=== PATIENT | female | born 1970 | race Caucasian/White ===

== ENCOUNTER 2017-08-15 12:28 | Emergency (ER) | payer OTHER ==
[2017-08-15 12:33] VITALS: BMI 31.8
--- NOTE | 2017-08-15 13:01 | PDOC ---
History of Present Illness - General History Source: Patient Exam Limitations: No Limitations - History of Present Illness Initial Comments: 08/15/17 14:02 The patient is a 46-year-old female with a significant past medical history of HLD, prediabetes, controlled abdominal aortic aneurysm, nephrolithiasis, left ovarian cyst, and prior kidney infection, who presents to the emergency department with abdominal pain, nausea, and diarrhea since 1pm yesterday. She describes her abdominal pain as a constant sharp, pressure-like pain, located in the mid-epigastric region, and 7/10 in severity. She states she has had multiple episodes of watery diarrhea. She reports associated body aches, chills , tiredness, and moderate headache (took Tylenol at 3pm yesterday). She state she states she has not vomited, but has felt like vomiting. She reports defecation makes the pain better and eating makes the pain worse. She has not eaten since yesterday. 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 She denies recent travel. She states she got her flu shot. The patient denies chest pain, shortness of breath, and dizziness. The patient denies fever, vomit, and constipation. The patient denies dysuria, frequency, urgency and hematuria. LMP: started 2 days ago Allergies: some antibiotic (patient is unable to recall the specific antibiotic ) Past Surgical History: , appendectomy, tonsillectomy Social History: No toxic habits reported PCP: Dr. Adrianna Beavers <Lela Cortes - Last Filed: 08/15/17 14:02> <Elaine Hardin - Last Filed: 08/15/17 16:15> - General Chief Complaint: Diarrhea Stated Complaint: ABD PAIN Time Seen by Provider: 08/15/17 13:01 Past History <Lela Cortes - Last Filed: 08/15/17 14:02> - Past Medical History Cardiac Disorders: Yes (ABDOMINAL ANEURYSM.) COPD: No Diabetes: Yes (pre) Hypercholesterolemia: Yes - Surgical History Abdominal Surgery: Yes Appendectomy: Yes - Immunization History Immunization Up to Date: Yes - Suicide/Smoking/Psychosocial Hx Smoking Status: No Smoking History: Never smoked Have you smoked in the past 12 months: No Hx Alcohol Use: No Drug/Substance Use Hx: No Substance Use Type: None Hx Substance Use Treatment: No <Elaine Hardin - Last Filed: 08/15/17 16:15> - Past Medical History Allergies/Adverse Reactions: Allergies Allergy/AdvReac Type Severity Reaction Status Date / Time No Known Drug Allergies Allergy Verified 08/15/17 12:32 Home Medications: Ambulatory Orders NK [No Known Home Medication] 03/10/16 Review of Systems - Review of Systems Able to Perform ROS?: Yes Comments:: 08/15/17 14:02 GENERAL/CONSTITUTIONAL: (+) Chills. No fever. No weakness. HEAD, EYES, EARS, NOSE AND THROAT: No change in vision. No ear pain or discharge. No sore throat. CARDIOVASCULAR: No chest pain or shortness of breath. RESPIRATORY: No cough, wheezing, or hemoptysis. GASTROINTESTINAL: (+) Abdominal pain. (+) Nausea. (+) Diarrhea. No vomiting or constipation. GENITOURINARY: No dysuria, frequency, or change in urination. MUSCULOSKELETAL: No joint or muscle swelling or pain. No neck or back pain. SKIN: No rash NEUROLOGIC: (+) Headache. No vertigo, loss of consciousness, or change in strength/sensation. ENDOCRINE: No increased thirst. No abnormal weight change. HEMATOLOGIC/LYMPHATIC: No anemia, easy bleeding, or history of blood clots. ALLERGIC/IMMUNOLOGIC: No hives or skin allergy. <SebastianLela - Last Filed: 08/15/17 14:02> *Physical Exam - Vital Signs Last Vital Signs Temp Pulse Resp BP Pulse Ox 99.6 F 104 H 20 121/73 99 08/15/17 12:30 08/15/17 12:30 08/15/17 12:30 08/15/17 12:30 08/15/17 12:30 - Physical Exam Comments: 08/15/17 14:03 GENERAL: Awake, alert, and fully oriented, in no acute distress. (+) Febrile. HEAD: No signs of trauma EYES: PERRLA, EOMI, sclera anicteric, conjunctiva clear ENT: Auricles normal inspection, hearing grossly normal, nares patent, oropharynx clear without exudates. Moist mucosa NECK: Normal ROM, supple, no lymphadenopathy, JVD, or masses LUNGS: Breath sounds equal, clear to auscultation bilaterally. No wheezes, and no crackles HEART: Regular rate and rhythm, normal S1 and S2, no murmurs, rubs or gallops ABDOMEN: (+) Very mild diffuse tenderness to deep palpation in the epigastrium. Soft, normoactive bowel sounds. No guarding, no rebound. No masses EXTREMITIES: Normal range of motion, no edema. No clubbing or cyanosis. No cords, erythema, or tenderness NEUROLOGICAL: Cranial nerves II through XII grossly intact. Normal speech, normal gait SKIN: Warm, Dry, normal turgor, no rashes or lesions noted. <Lela Cortes - Last Filed: 08/15/17 14:02> - Vital Signs Last Vital Signs Temp Pulse Resp BP Pulse Ox 99.6 F 104 H 20 121/73 99 08/15/17 12:30 08/15/17 12:30 08/15/17 12:30 08/15/17 12:30 08/15/17 12:30 <Elaine Hardin - Last Filed: 08/15/17 16:15> ED Treatment Course - LABORATORY CBC & Chemistry Diagram: 08/15/17 13:55 08/15/17 13:55 - ADDITIONAL ORDERS Additional order review: 08/15/17 13:55 RBC 4.89 MCV 82.8 MCHC 33.2 RDW 14.7 MPV 8.2 Neutrophils % 80.2 D Lymphocytes % 11.4 D Monocytes % 7.5 Eosinophils % 0.7 Basophils % 0.2 <Lela Cortes - Last Filed: 08/15/17 14:02> - LABORATORY CBC & Chemistry Diagram: 08/15/17 13:55 08/15/17 13:55 <Elaine Hardin - Last Filed: 08/15/17 16:15> *DC/Admit/Observation/Transfer - Attestations Scribe Attestion: 08/15/17 14:03 Documentation prepared by Lela Cortes, acting as emergency medical technician/driver for Elaine Hardin MD, /DO. <Lela Cortes - Last Filed: 08/15/17 14:02> - Discharge Dispostion Admit: No <Elaine Hardin - Last Filed: 08/15/17 16:15> Diagnosis at time of Disposition: Gastroenteritis - Discharge Dispostion Disposition: HOME Condition at time of disposition: Good - Referrals Referrals: Adrianna Beavers MD [Primary Care Provider] - - Patient Instructions Printed Discharge Instructions: DI for Viral Gastroenteritis -- Adult Additional Instructions: Pt presents to the ED complaining of generalized malaise and profuse watery diarrhea. Minimal abdominal pain. History is consistent with viral gastroenteritis. Will discharge home with instructions to follow up with her PMD within three days. - Post Discharge Activity Forms/Work/School Notes: Back to Work
[2017-08-15] MEDS ORDERED: SODIUM CHLORIDE 1,000 ML IV STA (13:52)
[2017-08-15 13:59] LABS: BASO % 0.2 % (0-2.0); EOS % 0.7 % (0-4.5); HEMATOCRIT 40.5 % (32.4-45.2); HEMOGLOBIN 13.4 GM/dL (10.7-15.3); LYMPH % 11.4 % (8-40); MCH 27.5 pg (25.7-33.7); MCHC 33.2 g/dl (32.0-36.0); MEAN CELL VOLUME 82.8 fl (80-96); MEAN PLT VOLUME 8.2 fl (7.5-11.1); MONO % 7.5 % (3.8-10.2); NEUT % 80.2 % (42.8-82.8); PLATELET COUNT 313 K/MM3 (134-434); RBC 4.89 M/mm3 (3.60-5.2); RDW 14.7 % (11.6-15.6); WHITE BLOOD COUNT 8.4 K/mm3 (4.0-10.0)
[2017-08-15 14:23] LABS: ALBUMIN 3.4 g/dl (3.4-5.0); ALK PHOS 82 U/L (45-117); ANION GAP 7 (8-16); BILIRUBIN,TOTAL 0.5 mg/dL (0.2-1.0); BLOOD UREA NITROGEN 10 mg/dL (7-18); CHLORIDE 105 mmol/L (98-107); CO2 27 mmol/L (21-32); CREATININE 0.6 mg/dL (0.55-1.02); GLUCOSE,RANDOM 93 mg/dL (74-106); LIPASE 101 U/L (73-393); POTASSIUM 3.9 mmol/L (3.5-5.1); SGOT/AST 18 U/L (15-37); SGPT/ALT 37 U/L (12-78); SODIUM 139 mmol/L (136-145)
[2017-08-15] MEDS ORDERED: ACETAMINOPHEN 500 MG TABLET (FP) PO ONE (15:03)
[2017-08-15] MEDS ORDERED: OSELTAMIVIR PHOSPHATE 75 MG CAPSULE PO ONE (15:03)
[2017-08-15] MEDS ORDERED: ONDANSETRON 4 MG/2 ML VIAL IVPUSH ONE (15:05)
[2017-08-15] MEDS ORDERED: ONDANSETRON 4 MG/2 ML VIAL ONE (15:07)
[2017-08-15 15:12] LABS: HCG,QUALITATIVE URINE NEGATIVE; URINE APPEARANCE CLEAR; URINE BILIRUBIN NEGATIVE (NEGATIVE); URINE BLOOD 3+ (NEGATIVE); URINE COLOR COLORLESS; URINE GLUCOSE (UA) NEGATIVE (NEGATIVE); URINE KETONE NEGATIVE (NEGATIVE); URINE LEUK ESTERASE NEGATIVE (NEGATIVE); URINE NITRITE NEGATIVE (NEGATIVE); URINE PROTEIN NEGATIVE (NEGATIVE); URINE UROBILINOGEN NEGATIVE mg/dL (0.2-1.0)
[2017-08-15 15:15] LABS: EPI CELLS RARE /HPF (FEW); URINE BACTERIA RARE /hpf (NONE SEEN)
[2017-08-15] MEDS ORDERED: ACETAMINOPHEN 500 MG TABLET (FP) ONE (15:29)
[2017-08-15 16:04] VITALS: TEMP 99.4
[2017-08-15 16:44] VITALS: BP 107/68; PULSE 83
--- NOTE | 2017-08-18 11:03 | EKG ---
Test Reason : Blood Pressure : / mmHG Vent. Rate : 077 BPM Atrial Rate : 077 BPM P-R Int : 178 ms QRS Dur : 082 ms QT Int : 392 ms P-R-T Axes : 044 024 034 degrees QTc Int : 443 ms NORMAL SINUS RHYTHM NORMAL ECG WHEN COMPARED WITH ECG OF 09-JUL-2015 14:58, NO SIGNIFICANT CHANGE WAS FOUND Confirmed by DEVANTE ARRINGTON MD ([id number]) on 08/18/2017 11:03:31 AM Referred By: Confirmed By:DEVANTE ARRINGTON MD
== END 2017-08-15 16:43 | disposition home or self-care (01) ==
LOC: JER 12:28
PROC: 3E033GC Introduction of Other Therapeutic Substance into Peripheral Vein, Percutaneous Approach (ICD-10-PCS; principal; 2017-08-15)
PROC: 3E0337Z Introduction of Electrolytic and Water Balance Substance into Peripheral Vein, Percutaneous Approach (ICD-10-PCS; 2017-08-15)
DX: K52.9 Noninfective gastroenteritis and colitis, unspecified (principal); E78.00 Pure hypercholesterolemia, unspecified; R73.03 Prediabetes; Z86.79 Personal history of other diseases of the circulatory system
CPT/HCPCS: 36415; 80053; 81003; 81015; 83690; 84703; 85025; 93005; 93010; 96361; 96374; 99283-25

== ENCOUNTER 2017-11-18 21:54 | Emergency (ER) | payer OTHER ==
[2017-11-18] MEDS ORDERED: ACETAMINOPHEN 500 MG TABLET (FP) PO ONE (22:01)
--- NOTE | 2017-11-18 22:01 | PDOC ---
Rapid Medical Evaluation Time Seen by Provider: 11/18/17 21:55 Medical Evaluation: Allergies Allergy/AdvReac Type Severity Reaction Status Date / Time No Known Drug Allergies Allergy Verified 08/15/17 12:32 11/18/17 21:57 I have performed a brief in-person evaluation of this patient. The patient presents with a chief complaint of: fevers, sneezing, occipital LA[place]ON radiating to front Pertinent physical exam findings: EOMI. PERRLA. Lungs CTAB. OP- no erythema/ exudate. I have ordered the following: rapid strep, influenza, tylenol The patient will proceed to the ED for further evaluation. Discharge Disposition - Diagnosis Fever - Referrals - Patient Instructions - Post Discharge Activity
[2017-11-18] MEDS ORDERED: ACETAMINOPHEN 325 MG TABLET (FP) ONE (22:03)
[2017-11-18 22:04] VITALS: BMI 26.6
--- NOTE | 2017-11-18 22:49 | PDOC ---
History of Present Illness - General Chief Complaint: Cold Symptoms Stated Complaint: COLD SYMPTOMS Time Seen by Provider: 11/18/17 21:55 History Source: Patient Exam Limitations: No Limitations - History of Present Illness Initial Comments: 11/18/17 23:07 This is a 47-year-old woman with past medical history of hyperlipidemia and prediabetes who presents emergency Department sore throat, headache, fevers, cough for the past 4 days. Patient states she has not been taking any over-the- counter remedies to help improve her symptoms. She denies any travel out of the country or sick contacts. She denies abdominal pain, nausea, vomiting, dysuria, hematuria, diarrhea or rectal bleeding. Past History - Past Medical History Allergies/Adverse Reactions: Allergies Allergy/AdvReac Type Severity Reaction Status Date / Time No Known Drug Allergies Allergy Verified 11/18/17 22:03 Home Medications: Ambulatory Orders Loperamide HCl [Imodium A-D] 2 mg PO ASDIR #12 tablet MDD 16 mg 08/15/17 Cardiac Disorders: Yes (ABDOMINAL ANEURYSM.) COPD: No Diabetes: Yes (pre) Hypercholesterolemia: Yes - Surgical History Abdominal Surgery: Yes Appendectomy: Yes - Immunization History Immunization Up to Date: Yes - Suicide/Smoking/Psychosocial Hx Smoking Status: No Smoking History: Never smoked Have you smoked in the past 12 months: No Information on smoking cessation initiated: No Hx Alcohol Use: No Drug/Substance Use Hx: No Substance Use Type: None Hx Substance Use Treatment: No Review of Systems - Review of Systems Able to Perform ROS?: Yes Is the patient limited Kinyarwanda proficient: No Constitutional: Yes: See HPI HEENTM: Yes: See HPI Respiratory: Yes: See HPI Cardiac (ROS): No: Symptoms Reported ABD/GI: No: Symptoms Reported : No: Symptoms Reported Musculoskeletal: No: Symptoms Reported Integumentary: No: Symptoms Reported Neurological: Yes: See HPI Endocrine: Yes: Symptoms Reported *Physical Exam - Vital Signs Last Vital Signs Temp Pulse Resp BP Pulse Ox 101.8 F H 104 H 20 131/65 95 11/18/17 22:03 11/18/17 22:03 11/18/17 22:03 11/18/17 22:03 11/18/17 22:03 - Physical Exam General Appearance: Yes: Appropriately Dressed. No: Apparent Distress HEENT: positive: TMs Normal, Other (uvula midline). negative: Pharyngeal Erythema, Tonsillar Exudate, Tonsillar Erythema Neck: positive: Trachea midline, Supple Respiratory/Chest: positive: Lungs Clear, Normal Breath Sounds. negative: Respiratory Distress, Accessory Muscle Use Cardiovascular: positive: Regular Rhythm, Regular Rate. negative: Murmur Gastrointestinal/Abdominal: positive: Normal Bowel Sounds, Soft. negative: Tender Musculoskeletal: positive: Normal Inspection. negative: CVA Tenderness Extremity: positive: Normal Inspection Integumentary: positive: Normal Color, Dry, Warm Neurologic: positive: underwear welter II-XII NML intact, Fully Oriented, Alert, Normal Mood/ Affect, Normal Response, Motor Strength 11/06 ED Treatment Course - Medications Given in the ED: ED Medications Discontinued Medications Generic Name Dose Route Start Last Admin Trade Name Freq PRN Reason Stop Dose Admin Acetaminophen 975 mg 11/18/17 22:01 11/18/17 22:05 Tylenol - PO 11/18/17 22:02 975 mg ONCE ONE Administration Medical Decision Making - Medical Decision Making 11/18/17 23:08 A/P: 47-year-old female with history of hyperlipidemia presents with 4 days of upper respiratory symptoms Oropharynx clear without erythema or exudates. Uvula midline Cobblestoning noted in the posterior oropharynx Lungs clear to auscultation bilaterally Regular tachycardic rhythm. No murmur, rub or gallop noted Abdomen soft nontender nondistended Tylenol, strep testing, influenza testing, reassess 11/19/17 00:33 Influenza test and strep testing are negative. Patient currently states she feels better and is ready for discharge. I will perform a chest x-ray to rule out pneumonia. 11/19/17 01:48 Chest x-rays read by me: Angles clear. No focal infiltrates or consolidations noted. Cardex silhouette is within normal limits. Visualized osseous structures are intact. 11/19/17 02:08 Vital signs normalized. Patient feels better. I will discharge the patient home to follow-up her primary doctor within 1 week. *DC/Admit/Observation/Transfer Diagnosis at time of Disposition: Fever Qualifiers: Fever type: unspecified Qualified Code(s): R50.9 - Fever, unspecified Upper respiratory infection Qualifiers: URI type: unspecified URI Qualified Code(s): J06.9 - Acute upper respiratory infection, unspecified - Discharge Dispostion Disposition: HOME Condition at time of disposition: Fair Decision to Admit order: No - Referrals Referrals: Adrianna Beavers MD [Primary Care Provider] - - Patient Instructions Printed Discharge Instructions: DI for Viral Upper Respiratory Infection -- Adult Additional Instructions: Rest, drink lots of fluids: Teas, water, soups, Pedialyte Saltwater gargles Steamy showers/seem to face break up mucus Avoid contact with others until fevers and cough resolved Lots of handwashing and good hygiene Continue [id number] medications for symptomatic relief Tylenol or Motrin for fever and pain Followup with private physician in one to 2 days as needed Return to emergency department for worsened symptoms, fevers, dehydration - Post Discharge Activity Forms/Work/School Notes: Back to Work
--- NOTE | 2017-11-18 23:37 | PDOC ---
*Physical Exam - Vital Signs Last Vital Signs Temp Pulse Resp BP Pulse Ox 101.8 F H 104 H 20 131/65 95 11/18/17 22:03 11/18/17 22:03 11/18/17 22:03 11/18/17 22:03 11/18/17 22:03 ED Treatment Course - ADDITIONAL ORDERS Additional order review: 11/18/17 22:01 Influenza Types A,B Antigen (SÁNCHEZ) - Final Nasopharyngeal Swab - Final 11/18/17 22:01 Group A Strep Rapid Antigen - Final Throat - Medications Given in the ED: ED Medications Discontinued Medications Generic Name Dose Route Start Last Admin Trade Name Freq PRN Reason Stop Dose Admin Acetaminophen 975 mg 11/18/17 22:01 11/18/17 22:05 Tylenol - PO 11/18/17 22:02 975 mg ONCE ONE Administration Medical Decision Making - Medical Decision Making 11/18/17 23:37 agree with care from BRENDA Moss *DC/Admit/Observation/Transfer Diagnosis at time of Disposition: Fever - Referrals Referrals: Adrianna Beavers MD [Primary Care Provider] - - Patient Instructions - Post Discharge Activity
[2017-11-19 01:55] VITALS: BP 134/69; PULSE 89; TEMP 97.6
== END 2017-11-19 02:11 | disposition home or self-care (01) ==
LOC: JER 21:54
DX: J06.9 Acute upper respiratory infection, unspecified (principal); B97.89 Other viral agents as the cause of diseases classified elsewhere; R73.03 Prediabetes; E78.00 Pure hypercholesterolemia, unspecified; Z86.79 Personal history of other diseases of the circulatory system
CPT/HCPCS: 71046-TC-FY; 87070; 87430; 87804; 99282-25

== ENCOUNTER 2017-11-20 13:27 | Emergency (ER) | payer OTHER ==
[2017-11-20 13:31] VITALS: BP 143/75; PULSE 84; TEMP 101; BMI 28.6
[2017-11-20] MEDS ORDERED: IBUPROFEN 400 MG TABLET (FP) PO ONE ×2 (13:40→13:42)
--- NOTE | 2017-11-20 14:00 | PDOC ---
History of Present Illness - General Chief Complaint: Respiratory Stated Complaint: FEVER Time Seen by Provider: 11/20/17 13:39 History Source: Patient - History of Present Illness Timing/Duration: reports: other Associated Symptoms: reports: cough, fever/chills. denies: chest pain/soreness , dizziness, earache, facial pain, headache, muscle aches, nasal drainage, shortness of breath, sore throat, wheezing Past History - Past Medical History Allergies/Adverse Reactions: Allergies Allergy/AdvReac Type Severity Reaction Status Date / Time No Known Drug Allergies Allergy Verified 11/20/17 13:30 Home Medications: Ambulatory Orders NK [No Known Home Medication] 11/20/17 Cardiac Disorders: Yes (ABDOMINAL ANEURYSM.) COPD: No Diabetes: Yes (pre) Hypercholesterolemia: Yes - Surgical History Abdominal Surgery: Yes Appendectomy: Yes - Immunization History Immunization Up to Date: Yes - Suicide/Smoking/Psychosocial Hx Smoking Status: No Smoking History: Never smoked Have you smoked in the past 12 months: No Hx Alcohol Use: No Drug/Substance Use Hx: No Substance Use Type: None Hx Substance Use Treatment: No Review of Systems - Review of Systems Constitutional: Yes: Fever Respiratory: Yes: Cough. No: Shortness of Breath, Wheezing Cardiac (ROS): No: Chest Pain ABD/GI: No: Diarrhea, Nausea, Vomiting : No: Dysuria Neurological: No: Headache, Dizziness *Physical Exam - Vital Signs Last Vital Signs Temp Pulse Resp BP Pulse Ox 101 F H 84 18 143/75 97 11/20/17 13:28 11/20/17 13:28 11/20/17 13:28 11/20/17 13:28 11/20/17 13:28 - Physical Exam General Appearance: Yes: Appropriately Dressed. No: Apparent Distress HEENT: positive: Normal Voice Neck: positive: Supple. negative: Lymphadenopathy (R), Lymphadenopathy (L) Respiratory/Chest: positive: Lungs Clear, Normal Breath Sounds. negative: Respiratory Distress Cardiovascular: positive: Regular Rate, S1, S2 Gastrointestinal/Abdominal: positive: Soft. negative: Tender Integumentary: positive: Warm. negative: Dry Neurologic: positive: Fully Oriented, Alert, Normal Mood/Affect ED Treatment Course - Medications Given in the ED: ED Medications Discontinued Medications Generic Name Dose Route Start Last Admin Trade Name Freq PRN Reason Stop Dose Admin Ibuprofen 800 mg 11/20/17 13:40 11/20/17 13:56 Motrin - PO 11/20/17 13:41 800 mg ONCE ONE Administration Medical Decision Making - Medical Decision Making 11/20/17 14:00 47-year-old female, history of HLD, pre-DM, here for malaise with dry cough and fever for the past 6 days. Patient was seen in the ER 2 days ago for symptoms, had negative chest x-ray and discharged with supportive treatment for most likely viral illness. Patient returns today because she continues to have low- grade fevers at home. Patient denies sob, CP, headache, neck stiffness, dizziness, photophobia, nausea, vomiting, change in bowel movements or dysuria. No sick contacts or recent travel. Patient appears mildly uncomfortable in ED with low-grade fever. Rest of exam unremarkable. Viral etiology suspected. Patient informed that viral illness can take several days to a week or so to resolve and that treatment is supportive and that at this time there is no other intervention. Patient to follow-up with PMD next week if symptoms persist 11/20/17 14:04 *DC/Admit/Observation/Transfer Diagnosis at time of Disposition: Viral syndrome - Discharge Dispostion Disposition: HOME Condition at time of disposition: Good - Referrals Referrals: Adrianna Beavers MD [Primary Care Provider] - - Patient Instructions Printed Discharge Instructions: DI for Viral Syndrome Additional Instructions: The cause of your symptoms is most likely viral. The symptoms can take several days to week or so to resolve. In the meantime, rest, drink plenty of fluids and take Motrin or Tylenol for pain as needed. If symptoms persist, follow-up with your PMD next week - Post Discharge Activity Forms/Work/School Notes: Back to Work
== END 2017-11-20 14:07 | disposition home or self-care (01) ==
LOC: JERFT 13:27
DX: B34.9 Viral infection, unspecified (principal); I10 Essential (primary) hypertension; R73.03 Prediabetes
CPT/HCPCS: 99281-25

== ENCOUNTER 2018-09-13 10:57 | Emergency (ER) | payer OTHER ==
[2018-09-13 11:39] VITALS: BP 144/92; PULSE 76; TEMP 98.3; BMI 31.6
--- NOTE | 2018-09-13 11:54 | PDOC ---
History of Present Illness - General Chief Complaint: Back Pain Stated Complaint: BACK PAIN Time Seen by Provider: 09/13/18 11:40 History Source: Patient - History of Present Illness Severity: severe Past History - Past Medical History Allergies/Adverse Reactions: Allergies Allergy/AdvReac Type Severity Reaction Status Date / Time No Known Drug Allergies Allergy Verified 11/20/17 13:30 Home Medications: Ambulatory Orders Cyclobenzaprine HCl [Flexeril 10 mg] 10 mg PO TID #9 tablet 09/13/18 Ibuprofen [Motrin -] 800 mg PO Q6H #30 tablet 09/13/18 Cardiac Disorders: Yes (ABDOMINAL ANEURYSM.) COPD: No Diabetes: Yes (pre) Hypercholesterolemia: Yes - Surgical History Abdominal Surgery: Yes Appendectomy: Yes - Immunization History Immunization Up to Date: Yes - Suicide/Smoking/Psychosocial Hx Smoking Status: No Smoking History: Never smoked Have you smoked in the past 12 months: No Hx Alcohol Use: No Drug/Substance Use Hx: No Substance Use Type: None Hx Substance Use Treatment: No Review of Systems - Review of Systems Constitutional: No: Chills, Fever Respiratory: No: Shortness of Breath Cardiac (ROS): No: Chest Pain, Lightheadedness, Palpitations ABD/GI: Yes: Nausea. No: Blood Streaked Bowels, Constipated, Diarrhea, Rectal Bleeding, Vomiting *Physical Exam - Vital Signs Last Vital Signs Temp Pulse Resp BP Pulse Ox 98.3 F 76 16 144/92 99 09/13/18 11:33 09/13/18 11:33 09/13/18 11:33 09/13/18 11:33 09/13/18 11:33 Moderate Sedation - Procedure Monitoring Vital Signs: Procedure Monitoring Vital Signs Temperature 98.3 F 09/13/18 11:33 Pulse Rate 76 09/13/18 11:33 Respiratory Rate 16 09/13/18 11:33 Blood Pressure 144/92 09/13/18 11:33 O2 Sat by Pulse Oximetry (%) 99 09/13/18 11:33 ED Treatment Course - LABORATORY CBC & Chemistry Diagram: 09/13/18 12:21 09/13/18 12:21 Medical Decision Making - Medical Decision Making 09/13/18 11:50 48-year-old male female, history of fibroids, ? AAA (states she was told she had AAA in the past but states imaging last year showed no aneurysm), chronic lower back pain, reports "pinched nerve" on prior MRI, s/p PT ~2 years ago, recurrent UTIs, pyelo, renal stones, here with severe diffuse back pain that started several days ago radiating to L flank with nausea, no vomiting. Patient states several weeks ago she developed dysuria w/ foul odor to urine and "treated" it w/ OTC meds that she states was not abx. States she continues to have burning with urination but for unclear reasons, did not come to the ED or go see her doctor sooner. No recent trauma See exam Back pain w/ dysuria R/o uti/pyelo vs renal colic vs acute on chronic back pain, less likely dissection given gradual onset (reports ? h/o AAA in the past but no evidence on imaging last year per pt) Stable but leah very uncomfortable w/ b/l CVA, abd benign otherwise -pain control -zofran -IVF -labs -CT 09/13/18 15:14 Labs/CT unremarkable. Patient reports marked improvement in her symptoms and appears well on reassessment. Will dc with pain control and have patient follow -up with her PMD 09/13/18 15:15 *DC/Admit/Observation/Transfer Diagnosis at time of Disposition: Back pain Qualifiers: Back pain location: back pain in unspecified location Chronicity: unspecified Back pain laterality: bilateral Qualified Code(s): M54.9 - Dorsalgia, unspecified - Discharge Dispostion Disposition: HOME Condition at time of disposition: Improved - Prescriptions Prescriptions: Cyclobenzaprine HCl [Flexeril 10 mg] 10 mg PO TID #9 tablet Ibuprofen [Motrin -] 800 mg PO Q6H #30 tablet - Referrals Referrals: Adrianna Beavers MD [Primary Care Provider] - - Patient Instructions Printed Discharge Instructions: Low Back Pain Additional Instructions: The cause of your back pain might be due to your chronic back issues. Your labs, urine and CAT scan were normal here. Take naproxen and the Flexeril prescribed today and follow-up with your primary care physician - Post Discharge Activity Forms/Work/School Notes: Back to Work
[2018-09-13] MEDS ORDERED: KETOROLAC TROMETHAMINE 30 MG/1 ML VIAL IVPUSH ONE (11:55)
[2018-09-13] MEDS ORDERED: ONDANSETRON 4 MG/2 ML VIAL IVPUSH ONE (11:55)
[2018-09-13] MEDS ORDERED: SODIUM CHLORIDE 1,000 ML IV STA (11:56)
[2018-09-13] MEDS ORDERED: KETOROLAC TROMETHAMINE 30 MG/1 ML VIAL ONE (12:14)
[2018-09-13] MEDS ORDERED: ONDANSETRON 4 MG/2 ML VIAL ONE (12:14)
[2018-09-13 12:53] LABS: BASO % 0.4 % (0-2.0); EOS % 0.8 % (0-4.5); HEMATOCRIT 38.7 % (32.4-45.2); HEMOGLOBIN 13.2 GM/dL (10.7-15.3); LYMPH % 31.9 % (8-40); MCH 29.5 pg (25.7-33.7); MCHC 34.2 g/dl (32.0-36.0); MEAN CELL VOLUME 86.2 fl (80-96); MEAN PLT VOLUME 9.5 fl (7.5-11.1); MONO % 8.5 % (3.8-10.2); NEUT % 58.4 % (42.8-82.8); PLATELET COUNT 237 K/MM3 (134-434); RBC 4.49 M/mm3 (3.60-5.2); RDW 14.4 % (11.6-15.6)
[2018-09-13 13:27] LABS: URINE APPEARANCE CLEAR; URINE BILIRUBIN NEGATIVE (<2.0 mg/dL); URINE COLOR STRAW; URINE GLUCOSE (UA) NEGATIVE (NEGATIVE); URINE KETONE NEGATIVE (NEGATIVE); URINE LEUK ESTERASE NEGATIVE (NEGATIVE); URINE NITRITE NEGATIVE (NEGATIVE); URINE PROTEIN NEGATIVE (NEGATIVE); URINE UROBILINOGEN NEGATIVE mg/dL (0.2-1.0)
[2018-09-13 14:16] LABS: ALBUMIN 3.8 g/dl (3.4-5.0); ALK PHOS 76 U/L (45-117); ANION GAP 7 MMOL/L (8-16); BILIRUBIN,TOTAL 0.4 mg/dL (0.2-1); BLOOD UREA NITROGEN 16 mg/dL (7-18); CALCIUM 9.1 mg/dL (8.5-10.1); CHLORIDE 108 mmol/L (98-107); CO2 22 mmol/L (21-32); CREATININE 0.7 mg/dL (0.55-1.3); GLUCOSE,RANDOM 85 mg/dL (74-106); POTASSIUM 4.3 mmol/L (3.5-5.1); SGOT/AST 26 U/L (15-37); SGPT/ALT 37 U/L (13-61); SODIUM 137 mmol/L (136-145); TOT PROT 7.4 g/dl (6.4-8.2)
== END 2018-09-13 14:57 | disposition home or self-care (01) ==
LOC: JER 10:57
PROC: 3E0333Z Introduction of Anti-inflammatory into Peripheral Vein, Percutaneous Approach (ICD-10-PCS; principal; 2018-09-13)
PROC: 3E033GC Introduction of Other Therapeutic Substance into Peripheral Vein, Percutaneous Approach (ICD-10-PCS; 2018-09-13)
DX: M54.9 Dorsalgia, unspecified (principal); E78.00 Pure hypercholesterolemia, unspecified; R73.03 Prediabetes; Z86.79 Personal history of other diseases of the circulatory system; Z87.440 Personal history of urinary (tract) infections; Z86.2 Personal history of diseases of the blood and blood-forming organs and certain disorders involving the immune mechanism
CPT/HCPCS: 36415; 74176-TC; 80053; 81003; 83690; 85025; 87086; 96374; 96375; 99282-25; J7030

== ENCOUNTER 2019-01-10 06:04 | Inpatient (IN) | payer OTHER ==
[2019-01-09 10:52] VITALS: BMI 31.8
[~2019-01-10 06:04] MED LIST: CEFAZOLIN 2 GM in DEXTROSE 5%-WATER - 100 ML IVPB ONE
[2019-01-10] MEDS ORDERED: DEXMEDETOMIDINE HCL 200 MCG/2 ML IVPB ONE (07:02)
[2019-01-10] MEDS ORDERED: DESFLURANE GAS 240 ML BOTTLE IH ONE (07:02)
[2019-01-10] MEDS ORDERED: IBUPROFEN 800 MG/8 ML IJ IVPB ONE (07:02)
[2019-01-10] MEDS ORDERED: DEXAMETHASONE SOD PHOSPHATE/PF 10 MG/ML SDV ONE (07:14)
[2019-01-10] MEDS ORDERED: ROPIVACAINE HCL 0.5% 30ML VIAL ONE (07:14)
[2019-01-10] MEDS ORDERED: MIDAZOLAM HCL 2 MG/2 ML SINGLE DOSE VIAL ONE ×2 (07:15)
[2019-01-10] MEDS ORDERED: ROCURONIUM BROMIDE 50 MG/5 ML SYRINGE ONE (07:17)
[2019-01-10] MEDS ORDERED: SUCCINYLCHOLINE CHLORIDE 200 MG/10 ML SYRINGE ONE (07:17)
[2019-01-10] MEDS ORDERED: PROPOFOL 20 ML ONE (07:17)
[2019-01-10] MEDS ORDERED: ceFAZolin SODIUM 1 GM VIAL ONE (07:18)
[2019-01-10] MEDS ORDERED: KETAMINE HCL 200 MG/20 ML VIAL ONE (07:18)
[2019-01-10] MEDS ORDERED: SODIUM CHLORIDE 0.9% P/F 10 ML VIAL IJ ONE (07:18)
[2019-01-10] MEDS ORDERED: LIDOCAINE HCL/PF 2% SDV 5ML VIAL ONE (07:18)
[2019-01-10] MEDS ORDERED: MAGNESIUM SULF 50% (8.12 MEQ/2 ML-1 GM VIAL) ONE (07:18)
[2019-01-10] MEDS ORDERED: DEXAMETHASONE SOD PHOSPHATE 4 MG/1 ML VIAL ONE (07:18)
--- NOTE | 2019-01-10 07:38 | HP ---
Admitting History and Physical - Admission Chief Complaint: Menorrhagia History of Present Illness: 48 yo Para 2, with h/o prolonged and heavy menses, is pre op for abdominal hysterectomy. History Source: Patient Limitations to Obtaining History: No Limitations - Past Medical History ...LMP: 11/27/18 ...LMP Comment: DELONTE-MENOPAUSAL ...: No - Past Surgical History Past Surgical History: Yes: Appendectomy, - Smoking History Smoking history: Never smoked Have you smoked in the past 12 months: No - Alcohol/Substance Use Hx Alcohol Use: No History of Substance Use: reports: None - Social History Usual Living Arrangement: Yes: With Child History of Recent Travel: No Home Medications - Allergies Allergies/Adverse Reactions: Allergies Allergy/AdvReac Type Severity Reaction Status Date / Time No Known Drug Allergies Allergy Verified 01/09/19 10:59 - Home Medications Home Medications: Ambulatory Orders Cyclobenzaprine HCl [Flexeril 10 mg] 10 mg PO PRN PRN 12/09/18 Diclofenac Potassium 50 mg PO PRN PRN 01/09/19 Family Disease History - Family Disease History Family History: Unremarkable Review of Systems - Review of Systems Constitutional: reports: No Symptoms Eyes: reports: No Symptoms HENT: reports: No Symptoms Neck: reports: No Symptoms Cardiovascular: reports: No Symptoms Respiratory: reports: No Symptoms Gastrointestinal: reports: No Symptoms Genitourinary: reports: Pain Breasts: reports: No Symptoms Reported Musculoskeletal: reports: No Symptoms Integumentary: reports: No Symptoms Neurological: reports: No Symptoms Psychiatric: reports: No Symptoms Physical Examination Vital Signs: Vital Signs Temperature 98.7 F 01/10/19 06:39 Pulse Rate 67 01/10/19 06:39 Respiratory Rate 20 01/10/19 06:39 Blood Pressure 132/90 01/10/19 06:39 O2 Sat by Pulse Oximetry (%) 98 01/10/19 06:39 Constitutional: Yes: Well Nourished Eyes: Yes: Conjunctiva Clear HENT: Yes: Atraumatic Neck: Yes: Supple Cardiovascular: Yes: Regular Rate and Rhythm Respiratory: Yes: Regular Gastrointestinal: Yes: Normal Bowel Sounds ...Rectal Exam: Yes: WNL Renal/: Yes: WNL Musculoskeletal: Yes: WNL Extremities: Yes: WNL Neurological: Yes: Alert, Oriented Psychiatric: Yes: Alert, Oriented Problem List - Problems (1) Menorrhagia Code(s): N92.0 - EXCESSIVE AND FREQUENT MENSTRUATION WITH REGULAR CYCLE Qualifiers: Menorrahagia type: with regular cycle Qualified Code(s): N92.0 - Excessive and frequent menstruation with regular cycle Assessment/Plan Menorrhagia Pre op Consent signed Anesthesia to see patient
[2019-01-10] MEDS ORDERED: CEFAZOLIN 2 GM/D5W 2 GM/50 ML ML IVPB ONE (07:55)
[2019-01-10] MEDS ORDERED: ceFAZolin SODIUM 1 GM VIAL IVPB ONE (08:12)
[2019-01-10] MEDS ORDERED: GLYCOPYRROLATE 0.2 MG/1 ML VIAL ONE (08:58)
[2019-01-10] MEDS ORDERED: NEOSTIGMINE METHYLSULFATE 0.5 MG/ML - 10 ML MDV ONE (08:58)
[2019-01-10] MEDS ORDERED: oxyCODONE HCL 5 MG TABLET PO PRN (09:03)
--- NOTE | 2019-01-10 09:07 | OP ---
Operative Note - Note: Operative Date: 01/10/19 Pre-Operative Diagnosis: Menorrhagia Operation: Abdominal hysterectomy / Bilateral salpingectomy Findings: Uterus consistent with 12 weeks size Surgeon: Carlotta Christian Highway Traffic Control Technician: Dong Higgins Anesthesia: General Specimens Removed: Uterus / Fallopian tubes Estimated Blood Loss (mls): 150
[2019-01-10] MEDS ORDERED: ONDANSETRON 4 MG/2 ML VIAL IVPUSH PRN (09:33)
[2019-01-10] MEDS ORDERED: LACTATED RINGERS SOLUTION 1,000 ML IV SCH (10:00)
[2019-01-10] MEDS ORDERED: HYDROmorphone HCl 2 MG/ML VIAL ONE (11:22)
[2019-01-10] MEDS ORDERED: ONDANSETRON 4 MG/2 ML VIAL ONE (12:09)
[2019-01-10] MEDS ORDERED: HYDROmorphone HCL CARPU-JECT 2 MG/1 ML DISP.SYRIN IVPUSH PRN (12:21)
[2019-01-10] MEDS: DEXTROSE 5%-LACTATED RINGERS 1,000 ML IV SCH (12:55)
[2019-01-10] MEDS: CEFAZOLIN 1 GM/D5W 1 GM/50 ML BAG IVPB SCH ×2 (14:30→17:28)
--- NOTE | 2019-01-10 15:08 | PN ---
Progress Note (short form) - Note Progress Note: I assisted Dr. Christian at this case. Tyler
[2019-01-10] MEDS: IBUPROFEN 800 MG/8 ML IJ IVPB PRN ×2 (16:03→23:26)
[2019-01-10] MEDS: oxyCODONE HCL 5 MG TABLET PO PRN (19:59)
[2019-01-11] MEDS ORDERED: ceFAZolin 1 GRAM PREMIX BAG IVPB ONE (02:00)
[2019-01-11] MEDS: oxyCODONE HCL 5 MG TABLET PO PRN ×4 (06:15→21:36)
[2019-01-11] MEDS: IBUPROFEN 800 MG/8 ML IJ IVPB PRN (07:55)
[2019-01-11 07:59] LABS: BLOOD UREA NITROGEN 9.6 mg/dL (7-18); CALCIUM 8.3 mg/dL (8.5-10.1); CREATININE 0.7 mg/dL (0.55-1.3); POTASSIUM 3.9 mmol/L (3.5-5.1)
--- NOTE | 2019-01-11 07:59 | SPA.POSTOP ---
- POST-OP NOTE POD #1 s/p Open Abdominal hysterectomywith bilateral salpingectomy No acute events since surgical procedure per RN notes. Patient resting comfortably. Hasn't been oob yet. C/o of incisional tenderness. Adequate pain management via prn meds. Garcia in place. Tolerated jello. Denies n/v/f/c, CP or SOB. Last Vital Signs Temp Pulse Resp BP Pulse Ox 98.6 F 66 20 110/56 L 99 01/11/19 06:00 01/11/19 06:00 01/11/19 06:00 01/11/19 06:00 01/11/19 06:11 General: NAD Pulm: CTA bilat Cor: RRR Abd: Obese habitus. Soft. Non-distended. Dressing c/d/i. No hematoma. LE: Soft, non-tender bilat. SCD's bilat. Problem List - Problems (1) Menorrhagia Assessment/Plan: POD #1 s/p Open abd hysterectomy w/ bilat salpingectomy Goals for today: 1. OOB to chair 2. Ambulate...if able to do so can dc garcia and begin trial of void 3. Advance diet as tolerated 4. Pain management 5. Incentive spirometer 6. Tylenol 650 mg PO fever > 100.4F Above plan discussed with Dr. Christian and agrees Code(s): N92.0 - EXCESSIVE AND FREQUENT MENSTRUATION WITH REGULAR CYCLE Qualifiers: Menorrahagia type: with regular cycle Qualified Code(s): N92.0 - Excessive and frequent menstruation with regular cycle Visit type - Case Type Case Type: Scheduled - New patient This patient is new to me today: Yes Date on this admission: 01/11/19
[2019-01-11 08:01] LABS: HEMATOCRIT 35.1 % (32.4-45.2); HEMOGLOBIN 11.6 GM/dL (10.7-15.3); LYMPH % 7.8 % (8-40); MCH 27.9 pg (25.7-33.7); MCHC 33.1 g/dl (32.0-36.0); MEAN CELL VOLUME 84.3 fl (80-96); MEAN PLT VOLUME 9.1 fl (7.5-11.1); NEUT % 86.2 % (42.8-82.8); PLATELET COUNT 269 K/MM3 (134-434); RBC 4.16 M/mm3 (3.60-5.2); RDW 14.2 % (11.6-15.6); WHITE BLOOD COUNT 15.2 K/mm3 (4.0-10.0)
[2019-01-11] MEDS: DEXTROSE 5%-LACTATED RINGERS 1,000 ML IV SCH (09:56)
[2019-01-11] MEDS ORDERED: ENOXAPARIN NA (PORCINE) 30 MG/0.3 ML DISP.SYRIN SQ SCH (10:00)
[2019-01-11] MEDS ORDERED: ENOXAPARIN NA (PORCINE) 40 MG/0.4 ML DISP.SYRIN SQ SCH (10:00)
[2019-01-11] MEDS: ACETAMINOPHEN 325 MG TABLET (FP) PO PRN ×3 (13:02→21:32)
[2019-01-11] MEDS: ENOXAPARIN NA (PORCINE) 40 MG/0.4 ML DISP.SYRIN SQ SCH (17:37)
[2019-01-12] MEDS: ACETAMINOPHEN 325 MG TABLET (FP) PO PRN ×5 (00:27→22:35)
[2019-01-12] MEDS: oxyCODONE HCL 5 MG TABLET PO PRN ×6 (00:27→22:34)
--- NOTE | 2019-01-12 07:47 | SPA.POSTOP ---
- POST-OP NOTE POD #2 s/p Open Abdominal hysterectomywith bilateral salpingectomy No acute events since surgical procedure per RN notes. Patient resting comfortably. Getting OOB and ambulating floors. C/o of incisional tenderness. Adequate pain management via prn meds. Voiding spontaneously. Passing flatus. Hasn't had a BM yet. Tolerated regular diet. Denies n/v/f/c, CP or SOB. Last Vital Signs Temp Pulse Resp BP Pulse Ox 98.6 F 69 18 124/67 97 01/11/19 22:00 01/11/19 22:00 01/11/19 22:00 01/11/19 22:00 01/11/19 22:00 CBC, BMP 01/11/19 06:47 01/11/19 06:47 PE General: NAD Pulm: CTA bilat Cor: RRR Abd: Obese habitus. Soft. Non-distended. Dressing taken down on rounds --> steri strips intact. No palpable hematoma or signs of infection. LE: Soft, non-tender bilat. SCD's bilat. Problem List - Problems (1) Menorrhagia Assessment/Plan: POD #2 s/p Open abd hysterectomy w/ bilat salpingectomy Goals for today: 1. Cont OOB ambulating 3. Reg diet 4. Pain management 5. Incentive spirometer 6. Tylenol 650 mg PO fever > 100.4F 7. Patient wishes to stay another day as she still hasn't had a BM 8. Colace Above plan discussed with Dr. Christian and agrees Problem List - Problems (1) Menorrhagia Code(s): N92.0 - EXCESSIVE AND FREQUENT MENSTRUATION WITH REGULAR CYCLE Qualifiers: Menorrahagia type: with regular cycle Qualified Code(s): N92.0 - Excessive and frequent menstruation with regular cycle
[2019-01-12] MEDS: ENOXAPARIN NA (PORCINE) 40 MG/0.4 ML DISP.SYRIN SQ SCH (09:36)
[2019-01-12] MEDS: DOCUSATE SODIUM 100 MG CAPSULE (FP) PO SCH ×3 (09:36→22:34)
--- NOTE | 2019-01-12 16:58 | PATH ---
Surgical Pathology Report Patient Name: JANIYA DUNBAR [facility]. Rec. 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 Specimen(s) Received A: RIGHT FALLOPIAN TUBE B: LEFT FALLOPIAN TUBE C: UTERUS Clinical History Menorrhagia Final Diagnosis A. FALLOPIAN TUBE, RIGHT, SALPINGECTOMY: FALLOPIAN TUBE WITH FOCAL MILD PAPILLARY HYPERPLASIA (INCLUDING FIMBRIATED END AND FULL LUMINAL PORTION). B. FALLOPIAN TUBE, LEFT, SALPINGECTOMY: FALLOPIAN TUBE WITH FOCAL MILD PAPILLARY HYPERPLASIA, LUMINAL DILATION, MILD CHRONIC INFLAMMATION, FOCAL BLUNTING AND FIBROSIS OF PLICA CONSISTENT WITH CHRONIC SALPINGITIS (INCLUDING FIMBRIATED END AND FULL LUMINAL PORTION). SEE COMMENT. C. UTERUS, ABDOMINAL HYSTERECTOMY: 187 G UTERUS. LEIOMYOMA(TA), INTRAMURAL. ENDOMETRIAL POLYP. PROLIFERATIVE ENDOMETRIUM. Comment: Suggest clinical correlation. Electronically Signed Ceci Vazquez M.D. Gross Description A. Received in formalin labeled "right fallopian tube," is a 2.5 cm in length fimbriated fallopian tube. The outer surface is mitchell purple and smooth. Sectioning reveals an unremarkable lumen. Ends Down Checker sections are submitted in 2 cassettes as follows: 1-fimbria; 2-cross sections of fallopian tube. B. Received in formalin labeled "left fallopian tube," is a 2.3 cm in length dilated appearing portion of fallopian tube. The outer surface is kelley-mitchell and smooth. There are no fimbria are present. Sectioning reveals an unremarkable lumen. The specimen is serially sectioned and entirely submitted in 2 cassettes. C. Received in formalin labeled "uterus," is a 187 g supracervically amputated uterus with no attached adnexa. The specimen measures 7.5 cm from left to right, 6.5 cm from superior to inferior and 6.5 cm from anterior to posterior. The serosa is kelley-mitchell and smooth. The endometrial cavity measures 5 cm in length and 3.8 cm from cornu to cornu. There is a 1.4 x 1.0 cm kelley, polypoid lesion attached to the fundus. The remaining endometrium is kelley-red and averages 0.1 cm in thickness. The myometrium displays multiple intramural nodules, measuring up to 3.6 cm in greatest dimension. The cut surface of the intramural nodules is kelley and rubbery with whorled architecture. No areas of hemorrhage or necrosis are identified. The remaining myometrium is kelley thomason and measures up to 3.3 cm in thickness. Ends Down Checker sections are submitted in 9 cassettes as follows: 1-cervical stump margin of resection; 2-fundic polyp; 8-2-fhxcuwxz endomyometrium; 5-7-fuvscfhhr endomyometrium; 3-3-loxulgdmvr nodules. 01/11/2019 saudi01/11/2019
[2019-01-13] MEDS: oxyCODONE HCL 5 MG TABLET PO PRN ×2 (02:34→06:15)
[2019-01-13] MEDS: ACETAMINOPHEN 325 MG TABLET (FP) PO PRN ×2 (02:34→07:48)
[2019-01-13] MEDS: DOCUSATE SODIUM 100 MG CAPSULE (FP) PO SCH (06:14)
--- NOTE | 2019-01-13 07:24 | DS ---
Physical Examination Vital Signs: Vital Signs Temperature 98.3 F 01/12/19 21:16 Pulse Rate 100 H 01/12/19 21:16 Respiratory Rate 20 01/12/19 21:16 Blood Pressure 104/55 L 01/12/19 21:16 O2 Sat by Pulse Oximetry (%) 97 01/11/19 22:00 Constitutional: Yes: Well Nourished Eyes: Yes: Conjunctiva Clear HENT: Yes: Atraumatic Neck: Yes: Supple Cardiovascular: Yes: Regular Rate and Rhythm Respiratory: Yes: Regular Gastrointestinal: Yes: Normal Bowel Sounds ...Rectal Exam: Yes: WNL Musculoskeletal: Yes: WNL Extremities: Yes: WNL Wound/Incision: Yes: Clean/Dry, Well Approximated, Sutures Intact Neurological: Yes: Alert, Oriented ...Motor Strength: WNL Psychiatric: Yes: Alert, Oriented Labs: CBC, BMP 01/11/19 06:47 01/11/19 06:47 Discharge Summary Reason For Visit: MENORRHAGIA Current Active Problems Menorrhagia (Acute) Status post abdominal hysterectomy (Acute) Procedures: Principal: Abdominal hysterectomy Other Procedures: Bilateral salpingectomy Hospital Course: Routine post op care. No blood transfusion required. Post op antibiotic was given. Condition: Stable - Instructions Diet, Activity, Other Instructions: Dr. Carlotta Christian's Claim Clerk Discharge Instructions Physical activity Resume your normal everyday activity as tolerated no heavy lifting or exercise until seen by your surgeon. You may walk unlimited shae of and climb stairs. You may resume driving the car when you feel safe and comfortable behind the wheel. No sexual activity as instructed by Dr. Brooke. Wound care If you have a bandage, leave it on, and keep dry for 48-72 hours. After that time discard the outer bandage. If they are tapes on the skin under the out of bandage leave them in place. They will peel off in the next 7 to 10 days. Do Not Peel them off. You may shower the day after surgery. If there are tapes present on the skin, you may shower over them. Diet There are no dietary restrictions. Eat healthy, high-fiber foods. Drink 6 to 8 glasses of liquid each day. This will assist in keeping your bowels are regular. Pain management You may take Tylenol or acetaminophen or Ibuprofen (for example, Motrin, Advil etc.) from my pain prescription medication is ordered should be taken as prescribed for moderate to severe pain. Call Dr. Christian for any of the following: Severe pain not relieved by medication Fever of 101 or higher Excessive bleeding or drainage on dressing Inability to urinate Call the office for an appointment in seven days. Disposition: HOME - Home Medications Comprehensive Discharge Medication List: Ambulatory Orders Cyclobenzaprine HCl [Flexeril 10 mg] 10 mg PO PRN PRN 12/09/18 Diclofenac Potassium 50 mg PO PRN PRN 01/09/19
[2019-01-13 08:49] VITALS: BP 126/84; PULSE 80
[2019-01-13] MEDS: ENOXAPARIN NA (PORCINE) 40 MG/0.4 ML DISP.SYRIN SQ SCH (10:14)
[2019-01-13] MEDS ORDERED: IBUPROFEN 600 MG TABLET (FP) PO ONE (10:21)
[2019-01-13] MEDS ORDERED: traMADol HCL 50 MG TABLET PO PRN (10:22)
[2019-01-13 12:56] VITALS: TEMP 98.2
--- NOTE | 2019-01-18 09:18 | OP ---
DATE OF OPERATION: 01/10/2019 PREOPERATIVE DIAGNOSIS: Menorrhagia. POSTOPERATIVE DIAGNOSIS: Menorrhagia. PROCEDURE: Total abdominal hysterectomy. SURGEON: Carlotta Christian MD [employer]ICAN FOOD MAKER: ANESTHESIA: General. COMPLICATIONS: None. ESTIMATED BLOOD LOSS: 150 mL. DESCRIPTION OF PROCEDURE: Patient was taken to the operating room, where general anesthesia was administered. Patient was then prepped and draped in appropriate sterile fashion. The patient was placed in supine position. A Pfannenstiel incision was made approximately 2 cm above the pubic symphysis and extended sharply to the rectus fascia. The fascia was incised bilaterally with the curved Olivier scissors, and the muscles of the anterior abdominal wall were in the midline by sharp and blunt dissection. The peritoneum was grasped between 2 pickups, elevated, and extended sharply with the Metzenbaum scissors. The pelvis was examined, and enlarged uterus was found. The uterus was consistent with a 14-week size uterus. Then, 2 pin clamps were placed on the cornua and used for retraction. The bowel was packed with moist laparotomy sponges, and the round ligaments on both sides were clamped using the LigaSure device, burned, and cut. The anterior leaf of the broad ligament was incised along the bladder reflection to the midline from both sides. The bladder was then gently dissected off the lower uterine segment and the cervix with a sponge stick. Then, the utero-ovarian ligaments on both sides were then clamped with the LigaSure device, burned, and cut. Hemostasis was visualized. The uterine arteries were skeletonized bilaterally. Then, they were clamped, burned, and cut using the LigaSure device. Again, hemostasis was assured. Then, the uterus was then amputated using the cautery. The cervical stump was closed using figure-of-8 stitches of 0 Vicryl in an interrupted fashion. Hemostasis was assured. The pelvis was irrigated copiously with warm normal saline. All laparotomy sponges and instruments were removed from the abdomen. Surgicel was placed over the cervical stump, and the peritoneum was closed using 2-0 Vicryl, and the fascia was closed with running 0 Vicryl, and hemostasis was assured. The skin was closed in a subcuticular fashion using 3-0 Vicryl. Sponge, lap, needle, and instrument counts were correct x2. Patient was taken to PACU awake and in stable condition. PATHOLOGY: Uterus and tubes. CARLOTTA CHRISTIAN M.D. [id number]
== END 2019-01-13 12:40 | disposition home or self-care (01) | DRG 743 ==
LOC: JSAMEDAYSX 06:04 → J3W 13:29
PROVIDERS: ADMIT Obstetrics & Gynecology; ATTEND Obstetrics & Gynecology
PROC: 0UT70ZZ Resection of Bilateral Fallopian Tubes, Open Approach (ICD-10-PCS; 2019-01-10)
PROC: 0UT90ZZ Resection of Uterus, Open Approach (ICD-10-PCS; principal; 2019-01-10 07:30)
DX: N92.0 Excessive and frequent menstruation with regular cycle (principal); E66.9 Obesity, unspecified; Z68.31 Body mass index [BMI] 31.0-31.9, adult
CPT/HCPCS: 36415; 80048; 84703; 85025; 86850; 86900; 86901; 88302-TC; 88307-TC; 94010; 94760

== ENCOUNTER 2019-01-17 21:49 | Inpatient (IN) | payer OTHER ==
--- NOTE | 2019-01-17 21:54 | PDOC ---
Rapid Medical Evaluation Time Seen by Provider: 01/17/19 21:53 Medical Evaluation: Allergies Allergy/AdvReac Type Severity Reaction Status Date / Time No Known Drug Allergies Allergy Verified 01/09/19 10:59 01/17/19 21:53 I have performed a brief in-person evaluation of this patient. The patient presents with a chief complaint of: On and off fever s/p ZENA/BSO (2/ 2 menorrhagia/fibroid) 01/10/[address] Christian. Highest T 101. +nausea, no vomiting. Also reports diarrhea. Unclear if post op abd pain has worsened. No vag bleed or dysuria. Given abx while admitted but not sent home w/ rx. Pertinent physical exam findings:leah uncomfortable, stable and afebrile (took motrin at 8pm tonight) I have ordered the following:labs The patient will proceed to the ED for further evaluation Discharge Disposition - Diagnosis Postoperative fever - Referrals - Patient Instructions - Post Discharge Activity
[2019-01-17] MEDS ORDERED: SODIUM CHLORIDE 1,000 ML IV STA (22:01)
[2019-01-17] MEDS ORDERED: ACETAMINOPHEN 1000 MG/100 ML VIAL (NON FORMULARY) IVPB ONE (22:54)
--- NOTE | 2019-01-17 23:23 | PDOC ---
History of Present Illness - General Chief Complaint: SIRS, Suspected/Possible Stated Complaint: FEVER FIVE DAYS Time Seen by Provider: 01/17/19 21:53 History Source: Patient Exam Limitations: No Limitations - History of Present Illness Initial Comments: 01/17/19 23:49 48F with a PMH of ZENA in 01/10/19, HLD, prediabetes, controlled abdominal aortic aneurysm, nephrolithiasis, left ovarian cyst, and prior kidney infection who presents with intermittent fevers since her surgery w/ Dr. Christian. The patient describes diffuse lower abdominal pain which is different form the post- op pain that she has. She describes a "tearing" pain. She also admits to nausea w/o vomiting, but denies dysuria, discharge, or vaginal bleeding. Past History - Past Medical History Allergies/Adverse Reactions: Allergies Allergy/AdvReac Type Severity Reaction Status Date / Time oxycodone [From Percocet] Allergy Verified 01/17/19 21:58 Home Medications: Ambulatory Orders Cyclobenzaprine HCl [Flexeril 10 mg] 10 mg PO PRN PRN 12/09/18 Diclofenac Potassium 50 mg PO PRN PRN 01/09/19 Ibuprofen [Motrin -] 600 mg PO Q4H PRN #60 tablet 01/13/19 Oxycodone HCl/Acetaminophen [Percocet 5-325 mg Tablet] 1 tab PO Q4H #20 tablet MDD 20 01/13/19 Anemia: No Asthma: No Cancer: No Cardiac Disorders: Yes (ABDOMINAL ANEURYSM.) CVA: No COPD: No CHF: No Dementia: No Diabetes: No (HX OF PRE-DIABETES) GI Disorders: No Disorders: No HTN: No Hypercholesterolemia: Yes Liver Disease: No Seizures: No Thyroid Disease: No - Surgical History Abdominal Surgery: No Appendectomy: Yes ( A CHILD) Cardiac Surgery: No Cholecystectomy: No Lung Surgery: No Neurologic Surgery: No Orthopedic Surgery: No - Immunization History Immunization Up to Date: Yes - Suicide/Smoking/Psychosocial Hx Smoking Status: No Smoking History: Unknown if ever smoked Have you smoked in the past 12 months: No Information on smoking cessation initiated: No Hx Alcohol Use: No Drug/Substance Use Hx: No Substance Use Type: None Hx Substance Use Treatment: No Review of Systems - Review of Systems Able to Perform ROS?: Yes Comments:: 01/18/19 00:33 GENERAL/CONSTITUTIONAL: No fever or chills. No weakness. HEAD, EYES, EARS, NOSE AND THROAT: No change in vision. No ear pain or discharge. No sore throat. CARDIOVASCULAR: No chest pain, palpitations, or lightheadedness. RESPIRATORY: No cough, wheezing, shortness of breath, or hemoptysis. GASTROINTESTINAL: + for abdominal pain and nausea. No vomiting, diarrhea, or constipation. GENITOURINARY: No dysuria, frequency, hematuria, or change in urination. MUSCULOSKELETAL: No joint or muscle swelling or pain. No neck or back pain. SKIN: No rash or lesions. NEUROLOGIC: No headache, numbness, tingling, focal weakness, loss of consciousness, or change in strength/sensation. Is the patient limited Brazilian proficient: No *Physical Exam - Vital Signs Last Vital Signs Temp Pulse Resp BP Pulse Ox 98.6 F 102 H 16 154/83 100 01/17/19 21:56 01/17/19 21:56 01/17/19 21:56 01/17/19 21:56 01/17/19 21:56 - Physical Exam Comments: 01/18/19 00:33 GENERAL: Well developed, well nourished. Awake and alert. No acute distress. HEENT: Normocephalic, atraumatic. Hearing grossly normal. Moist mucous membranes. PERRLA, EOMI. No conjunctival pallor. Sclera are non-icteric. NECK: Supple. Full ROM. No JVD. CARDIOVASCULAR: Regular rate and rhythm. No murmurs, rubs, or gallops. PULMONARY: No evidence of respiratory distress. Lungs clear to auscultation bilaterally. No wheezing, rales or rhonchi. ABDOMINAL: Soft. Diffusely tender in lower abdomen. Linear surgical scar well healing across lower abdomen. Non-distended. No rebound or guarding. GENITOURINARY: No CVA tenderness bilaterally. MUSCULOSKELETAL: Normal range of motion at all joints. No bony deformities or tenderness. EXTREMITIES: No cyanosis. No clubbing. No edema. No calf tenderness or swelling. SKIN: Warm and dry. Normal capillary refill. No rashes. No jaundice. NEUROLOGICAL: Alert, awake, appropriate. Cranial nerves 2-12 grossly intact. Normal speech. Gait is normal without ataxia. PSYCHIATRIC: Cooperative. Good eye contact. Appropriate mood and affect. ED Treatment Course - LABORATORY CBC & Chemistry Diagram: 01/17/19 23:26 01/17/19 23:26 - RADIOLOGY Radiology Studies Ordered: Category Date Time Status ABDOMEN & PELVIS CT WITH CONTR [CT] Stat CT Scan 01/17/19 22:52 Ordered CHEST X-RAY PORTABLE* [RAD] Stat Radiology 01/17/19 22:53 Ordered Medical Decision Making - Medical Decision Making 01/18/19 00:36 48F with a recent ZENA on 01/10/[address] Christian presents with intermittent fevers, t-max 101.5 the day after surgery. Pt somewhat uncomfortable appearing. Will give pain medication and scan abdomen with labwork. Concern for post-op complications including intra-abdominal abscess and PNA. Pending imaging. AST/ALT and alk phos elevated. Will add lipase, acetaminophen level, and RUQ US. 01/18/19 02:40 Dr. Gonzalez, imaging sessions clerk, reports a fluid collection and possible acute PE in RLL. Will confirm with CTA. Hydrating patient and moving her to monitored room. Pt well appearing. Hospitalist microblogged for admission. US FINDINGS Mild hepatomegaly. Liver is also fatty. Normal gallbladder. No gallstones pericholecystic fluid or gallbladder wall thickening. medical technologist generalist reports Lewis's sign to be negative. Normal common bile duct measuring 3.9 mm. No right hydronephrosis. No right upper quadrant free fluid. CTAP: FINDINGS: Patient is status post hysterectomy. Within the pelvic operative site, there is a 3.7 cm x 3.5 cm heterogeneous collection which has both hyperdense and hypodense components. This is most likely a combination of blood and fluid. This will need follow-up to make sure that the collection is not infected. Postoperative inflammatory changes are noted in the subcutaneous and muscular tissues of the anterior pelvic wall and in the prevesical fat underlying the incisional site. Normal appendix. The appendix actually protrudes slightly into the right inguinal canal. Liver is slightly prominent but this could be due to a Tito's lobe. There also may be somewhat fatty. Normal spleen. Normal pancreas. Normal gallbladder. Normal adrenal glands. Normal kidneys and urinary tracts. Osseous structures are intact. Note: The lung bases are included on the exam and although the opacification of the pulmonary vessels is not optimal, there do appear to be acute right lower lobe pulmonary emboli. 01/18/19 04:[address] Tipton for admission. Pending CTA. *DC/Admit/Observation/Transfer Diagnosis at time of Disposition: Postoperative fever - Referrals Referrals: Adrianna Beavers MD [Primary Care Provider] - - Patient Instructions - Post Discharge Activity
[2019-01-17 23:44] LABS: BASO % 0.5 % (0-2.0); EOS % 1.2 % (0-4.5); HEMATOCRIT 35.5 % (32.4-45.2); HEMOGLOBIN 12.1 GM/dL (10.7-15.3); LYMPH % 16.1 % (8-40); MCH 28.4 pg (25.7-33.7); MEAN CELL VOLUME 83.5 fl (80-96); MEAN PLT VOLUME 8.1 fl (7.5-11.1); MONO % 8.9 % (3.8-10.2); NEUT % 73.3 % (42.8-82.8); PLATELET COUNT 351 K/MM3 (134-434); RBC 4.26 M/mm3 (3.60-5.2); RDW 14.4 % (11.6-15.6)
[2019-01-17] MEDS ORDERED: ACETAMINOPHEN INJECTION 100 ML IVPB ONE (23:44)
[2019-01-18 00:11] LABS: ALBUMIN 3.3 g/dl (3.4-5.0); BILIRUBIN,TOTAL 0.3 mg/dL (0.2-1); BLOOD UREA NITROGEN 13.6 mg/dL (7-18); CALCIUM 8.9 mg/dL (8.5-10.1); CREATININE 0.7 mg/dL (0.55-1.3); TOT PROT 7.1 g/dl (6.4-8.2)
--- NOTE | 2019-01-18 00:39 | PDOC ---
Documentation entered by James Salinas SCRIBE, acting as scribe for Shauna Jeronimo MD. Shauna Jeronimo MD: This documentation has been prepared by the Brad villar Joel, SCRIBE, under my direction and personally reviewed by me in its entirety. I confirm that the documentation accurately reflects all work, treatment, procedures, and medical decision making performed by me. Attending Attestation - Resident Resident Name: Reynold Lazaro - ED Attending Attestation I have performed the following: I have examined & evaluated the patient, The case was reviewed & discussed with the resident, I agree w/resident's findings & plan, Exceptions are as noted - HPI HPI: 01/17/19 23:19 48-year-old female who had a hysterectomy on January 10 presents with history of intermittent fevers 01/17/19 23:42 The patient is a 48 year old female with a significant PMH of ZENA and BSO (, secondary to menorrhagia & fibroid), abdominal aneurysm, and hyperlipidemia who presents to the emergency department for evaluation of intermittent fever. The patient also notes associated nausea and diarrhea. The patient denies vomiting. She denies vaginal bleeding and dysuria. The patient denies chest pain, shortness of breath, headache, and dizziness. Denies chills, vomit, and constipation. Denies dysuria, frequency, urgency, and hematuria. Allergies: Oxycodone Past surgical history: ZENA / BSO. Appendectomy. . Social history: No reported cigarette, alcohol, or drug use. PCP: Dr. Adrianna Beavers LOCAL AREA NETWORK ADMINISTRATOR: Dr. Christian - Physicial Exam PE: 01/17/19 23:19 wnwd 48 yo female s/p hysterecomy has history of fevers head ncat neck supple lungs cta b/l cvs [id number] abd tenderness along surgical site intact skin warm and dry no flank pain neuro axox3,ambulatory psych appropriate 01/18/19 00:38 - Medical Decision Making 01/18/19 00:[address] scan abd/pelvis 01/18/19 01:37 REceived call from Imaging in Call and there is concern for PE, will hydrate and due dedicated cta chest case signed out to Dr Pascal
[2019-01-18] MEDS ORDERED: SODIUM CHLORIDE 0.9% 1000 ML INFUS.BAG IV ONE (01:59)
--- NOTE | 2019-01-18 02:43 | PN ---
Teaching Attending Note Name of Resident: Davi Higgins ATTENDING PHYSICIAN STATEMENT I saw and evaluated the patient. I reviewed the resident's note and discussed the case with the resident. I agree with the resident's findings and plan as documented. Seen and examined; please see resident note for historical information. Briefly , she presents with POD9 s/p ZENA and BSO US abd shows fatty liver with normal GB (no PC fluid, no GBW thickening, normal CBD) CT abd/pelvis shows 3.7x3.5 heterogenous combo likely blood/fluid (comment that requires FU to ensure no infection). Postop inflam changes noted. Possible RLL pulmonary emboli (on bases of lungs) WBC 12 (15 at DC) with elevated but reduced ANC since then. ASSESSMENT AND PLAN: Patient presents with transaminitis, sx suspect for PE with intrabdominal fluid vs. blood collection. Pending decal transferrer visit to determine etiology of fluid. Pending review of scan. Please refer to resident note for full discussion PMH PSH SH FH all reviewed; denies bleeding disorders in 1st deg relatives. No IVDU, etoh, etc.
--- NOTE | 2019-01-18 04:00 | HP ---
<Davi Higgins - Last Filed: 01/18/19 07:08> CHIEF COMPLAINT: fever PCP: HISTORY OF PRESENT ILLNESS: 48F with pmh of HLD, abdominal aneurysm, fibroids, POD8 from ZENA+b/l salpingectomy([facility], 01/10/19) presents to [facility] with complaint of fevers, chills, malaise, nausea x2d. Has had SOB, occasional nonproductive cough x5d. Had a home Temp of 101.5F and 100.8F. Has had diffuse lower abd pain since surgery. Discharged on 01/13/19. Denies drainage, redness, increased pain from surgical incision. Denies vaginal discharge, blood, dysuria. Ambulating w/o issues. Denies calf pain, lower leg swelling. Used IS during surgical hospitalization but did was not supplied with one upon discharge. Denies pleuritic pain. No history of DVTs. Had a DVT study of BLE last month for knee effusion, negative. Does not take OCPs. Snores at night. ER course was notable for: (1) U/S RUQ: fatty liver, CBD 3.9mm (2) CT A/P w/ 3.7x3.5cm heterogenous fluid collection; possible RLL pulmonary emboli (3) IVF Recent Travel: none PAST MEDICAL HISTORY: HLD, abdominal aneurysm, fibroids, POD8 from ZENA+b/l salpingectomy([facility], 01/10/19) PAST SURGICAL HISTORY: ZENA + b/l salphingectomy appendectomy Social History: Smoking: denies Alcohol: denies Drugs: denies Family History: mother with lung and cervical cancer Allergies oxycodone [From Percocet] Allergy (Verified 01/17/19 21:58) HOME MEDICATIONS: Home Medications Medication Instructions Recorded Cyclobenzaprine HCl [Flexeril 10 10 mg PO PRN PRN 12/09/18 mg] Diclofenac Potassium 50 mg PO PRN PRN 01/09/19 Ibuprofen [Motrin -] 600 mg PO Q4H PRN #60 tablet 01/13/19 Oxycodone HCl/Acetaminophen 1 tab PO Q4H #20 tablet MDD 20 01/13/19 [Percocet 5-325 mg Tablet] REVIEW OF SYSTEMS CONSTITUTIONAL: F/C, malaise Absent: diaphoresis, generalized weakness, weight change HEENT: Absent: rhinorrhea, nasal congestion, throat pain, difficulty swallowing, mouth swelling, visual changes CARDIOVASCULAR: palpitations x1 last week Absent: chest pain, syncope, irregular heart rate, lightheadedness, peripheral edema RESPIRATORY: cough, shortness of breath, Absent: dyspnea with exertion, wheezing, stridor, hemoptysis GASTROINTESTINAL: nausea, lower abd pain Absent: abdominal distension, vomiting, diarrhea, constipation, melena, hematochezia GENITOURINARY: Absent: dysuria, frequency, hematuria, genital pain MUSCULOSKELETAL: h/o knee effusion Absent: back pain SKIN: Absent: rash, itching, pallor HEMATOLOGIC/IMMUNOLOGIC: Absent: easy bleeding, easy bruising, lymphadenopathy, frequent infections, h/o DVT ENDOCRINE: Absent: unexplained weight gain, unexplained weight loss NEUROLOGIC: Absent: headache, focal weakness or paresthesias, dizziness, unsteady gait, seizure, mental status changes, bladder or bowel incontinence PHYSICAL EXAMINATION Vital Signs - 24 hr 01/17/19 21:56 Temperature 98.6 F Pulse Rate 102 H Respiratory 16 Rate Blood Pressure 154/83 O2 Sat by Pulse 100 Oximetry (%) GENERAL: Awake, alert, and fully oriented, in no acute distress. Pleasant HEAD: Normal with no signs of trauma. EYES: extraocular movements intact, sclera anicteric, conjunctiva clear. EARS, NOSE, THROAT: Ears normal, nares patent, oropharynx clear without exudates. Moist mucous membranes. NECK: Normal range of motion, supple without lymphadenopathy, JVD, or masses. LUNGS: Breath sounds equal, clear to auscultation bilaterally. No wheezes, and no crackles. No accessory muscle use. HEART: Regular rate and rhythm, normal S1 and S2 without murmur, rub or gallop. ABDOMEN: Soft, mild diffuse tenderness in epigastrium and lower abd, not distended, no guarding. Lower transverse abdominal incision intact with overlying steri-strips. No surrounding erythema. MUSCULOSKELETAL: Normal range of motion at all joints. No bony deformities or tenderness. UPPER EXTREMITIES: 2+ pulses, warm, well-perfused. No cyanosis. No peripheral edema. LOWER EXTREMITIES: 2+ pulses, warm, well-perfused. No calf tenderness. No peripheral edema. NEUROLOGICAL: Normal speech. PSYCHIATRIC: Cooperative. Good eye contact. Appropriate mood and affect. SKIN: Warm, dry, normal turgor, no rashes or lesions noted, normal capillary refill. Laboratory Results - last 24 hr 01/17/19 01/17/19 01/17/19 23:26 23:26 23:26 WBC 12.0 H RBC 4.26 Hgb 12.1 Hct 35.5 MCV 83.5 MCH 28.4 MCHC 34.0 RDW 14.4 Plt Count 351 D MPV 8.1 D Absolute Neuts (auto) 8.8 H Neutrophils % 73.3 Lymphocytes % 16.1 D Monocytes % 8.9 Eosinophils % 1.2 D Basophils % 0.5 D Nucleated RBC % 0 PTT (Actin FS) 26.6 Sodium 140 Potassium 4.0 Chloride 106 Carbon Dioxide 28 Anion Gap 7 L BUN 13.6 Creatinine 0.7 Est GFR (CKD-EPI)AfAm 117.09 Est GFR (CKD-EPI)NonAf 101.02 Random Glucose 103 Lactic Acid Calcium 8.9 Total Bilirubin 0.3 AST 144 H ALT 320 H Alkaline Phosphatase 213 H Total Protein 7.1 Albumin 3.3 L Lipase 114 Acetaminophen 2.3 L 01/17/19 23:26 WBC RBC Hgb Hct MCV MCH MCHC RDW Plt Count MPV Absolute Neuts (auto) Neutrophils % Lymphocytes % Monocytes % Eosinophils % Basophils % Nucleated RBC % PTT (Actin FS) Sodium Potassium Chloride Carbon Dioxide Anion Gap BUN Creatinine Est GFR (CKD-EPI)AfAm Est GFR (CKD-EPI)NonAf Random Glucose Lactic Acid 0.9 Calcium Total Bilirubin AST ALT Alkaline Phosphatase Total Protein Albumin Lipase Acetaminophen CT A/P(01/18/19): - 3.7 x 3.5cm heterogenous collection - possible acute Right lower lobe pulmonary emboli ASSESSMENT/PLAN: 48F with pmh of HLD, abdominal aneurysm, fibroids, POD8 from ZENA+b/l salpingectomy([facility], 01/10/19) presenting with fever, malaise, leukocytosis possibly 2/2 to the fluid collection seen in the CT A/P. SOB possibly 2/2 vs PE. # leukocytosis > CT A/P: prelimin read of heterogeneous fluid collection(3.7x3.5cm) - fu final read on CT A/P - fu FACS TEACHER consult -- does not believe it is an abscess - consider IV abx and/or IR drainage if clinical deterioration or worsening labs # SOB - CTA chest -- evaluate for PE - consider echocardiogram -- evaluate for Right-heart strain - fu troponin and BNP - incentive spirometer # chronic snoring - consider sleep study # transaminitis - fu hepatitis panel - fu CT A/P to evaluate for portal vein thrombosis Davi Higgins DO PGY-1 Medicine, PM-Float [id number] 01/18/19 Visit type - Emergency Visit Emergency Visit: Yes ED Registration Date: 01/18/19 Care time: The patient presented to the Emergency Department on the above date and was hospitalized for further evaluation of their emergent condition. - New Patient This patient is new to me today: Yes Date on this admission: 01/18/19 - Critical Care Critical Care patient: No ATTENDING PHYSICIAN STATEMENT I saw and evaluated the patient. I reviewed the resident's note and discussed the case with the resident. I agree with the resident's findings and plan as documented. SUBJECTIVE: OBJECTIVE: ASSESSMENT AND PLAN: <Mehdi Esposito - Last Filed: 02/12/19 21:25> Seen and examined; verified all vital parts of historical info and PE. Please see my own note for further discussion. Agree with above aside from as supplemented by myself. ATTENDING PHYSICIAN STATEMENT I saw and evaluated the patient. I reviewed the resident's note and discussed the case with the resident. I agree with the resident's findings and plan as documented. SUBJECTIVE: OBJECTIVE: ASSESSMENT AND PLAN:
[2019-01-18] MEDS ORDERED: VANCOMYCIN 1,000 MG in DEXTROSE 5%-WATER - 250 ML IVPB SCH (05:00)
[2019-01-18] MEDS ORDERED: VANCOMYCIN 1 GRAM (PRE-DOCKED) 1,000 MG/250 ML BAG IVPB ONE ×2 (05:15→08:26)
[2019-01-18] MEDS ORDERED: PIPERACILLIN/TAZOB 3.375 GM 3.375 GM/50 ML BAG IVPB ONE (07:06)
[2019-01-18] MEDS: LACTATED RINGERS SOLUTION 1,000 ML IV SCH (07:11)
[2019-01-18] MEDS: PIPERACILLIN/TAZOB 3.375 GM 3.375 GM in DEXTROSE 5%-WATER - 50 ML IVPB SCH ×2 (07:11→10:07)
[2019-01-18 07:29] LABS: HEMATOCRIT 33.2 % (32.4-45.2); HEMOGLOBIN 11.5 GM/dL (10.7-15.3); MCH 29.2 pg (25.7-33.7); MCHC 34.7 g/dl (32.0-36.0); MEAN CELL VOLUME 84.3 fl (80-96); PLATELET COUNT 333 K/MM3 (134-434); RBC 3.94 M/mm3 (3.60-5.2); RDW 14.3 % (11.6-15.6); WHITE BLOOD COUNT 10.2 K/mm3 (4.0-10.0)
[2019-01-18 07:39] LABS: INR 1.03 (0.83-1.09); PROTHROMBIN TIME (PATIENT) 12.1 SEC (9.7-13.0)
[2019-01-18 08:06] LABS: ALK PHOS 185 U/L (45-117); ANION GAP 5 MMOL/L (8-16); BILIRUBIN,TOTAL 0.4 mg/dL (0.2-1); BLOOD UREA NITROGEN 11.2 mg/dL (7-18); CALCIUM 8.3 mg/dL (8.5-10.1); CHLORIDE 109 mmol/L (98-107); CO2 28 mmol/L (21-32); CREATININE 0.6 mg/dL (0.55-1.3); GLUCOSE,RANDOM 94 mg/dL (74-106); MAGNESIUM 2.1 mg/dL (1.8-2.4); POTASSIUM 4.2 mmol/L (3.5-5.1); SGOT/AST 111 U/L (15-37); SGPT/ALT 283 U/L (13-61); SODIUM 141 mmol/L (136-145); TOT PROT 6.5 g/dl (6.4-8.2)
[2019-01-18] MEDS ORDERED: ENOXAPARIN NA (PORCINE) 80 MG/0.8 ML DISP.SYRIN SQ ONE ×2 (10:08→21:24)
[2019-01-18] MEDS: ENOXAPARIN NA (PORCINE) 80 MG/0.8 ML DISP.SYRIN SQ SCH ×3 (10:19→21:27)
--- NOTE | 2019-01-18 10:28 | EKG ---
Test Reason : Blood Pressure : / mmHG Vent. Rate : 082 BPM Atrial Rate : 082 BPM P-R Int : 178 ms QRS Dur : 076 ms QT Int : 366 ms P-R-T Axes : 055 018 029 degrees QTc Int : 427 ms NORMAL SINUS RHYTHM NORMAL ECG WHEN COMPARED WITH ECG OF 09-DEC-2018 14:49, NO SIGNIFICANT CHANGE WAS FOUND Confirmed by DEVANTE ARRINGTON MD ([id number]) on 01/18/2019 10:28:27 AM Referred By: Confirmed By:DEVANTE ARRINGTON MD
--- NOTE | 2019-01-18 12:30 | ECHO ---
Name: JANIYA DUNBAR Exam:Adult Echocardiogram Study Date: 01/18/2019 09:14 AM Age: 48 yrs Reason For Study: Maye Height: 62 in Weight: 174 lb BSA: 1.8 m2 MMode/2D Measurements & Calculations IVSd: 0.82 cm Ao root diam: 2.6 cm LVIDd: 4.7 cm LA dimension: 3.1 cm LVIDs: 3.4 cm LVPWd: 0.83 cm EDV(Teich): 102.2 ml LVOT diam: 2.0 cm ESV(Teich): 47.5 ml Doppler Measurements & Calculations MV E max [place]: 73.1 cm/sec Ao V2 max: 159.0 cm/sec MV A max [place]: 86.9 cm/sec Ao max P.1 mmHg MV E/A: 0.84 Ao V2 mean: 99.9 cm/sec MV dec time: 0.17 sec Ao mean P.7 mmHg Ao V2 VTI: 28.8 cm ARELI(I,D): 1.9 cm2 ARELI(V,D): 1.7 cm2 LV V1 max P.3 mmHg MR max [place]: 456.2 cm/sec LV V1 mean P.6 mmHg MR max P.2 mmHg LV V1 max: 90.6 cm/sec LV V1 mean: 57.5 cm/sec LV V1 VTI: 18.4 cm SV(LVOT): 55.7 ml TR max [place]: 190.7 cm/sec TR max P.6 mmHg Med Peak E' [place]: 7.8 cm/sec Med E/e': 9.4 Lat Peak E' [place]: 11.6 cm/sec Lat E/e': 6.3 Procedure A two-dimensional transthoracic echocardiogram with color flow and Doppler was performed. Left Ventricle The left ventricular size, thickness and function are normal. The left ventricular ejection fraction is normal. The transmitral spectral Doppler flow pattern is normal for age. The left ventricular wall mo tion is normal. Atria Normal left and right atrial size and function. Mitral Valve There is mild mitral valve thickening. There is no mitral valve stenosis. There is mild mitral regurg itation. Tricuspid Valve There is mild tricuspid valve thickening. There is no tricuspid stenosis. Right ventricular systolic pressure is normal. There is trace tricuspid regurgitation. Aortic Valve The aortic valve is not well visualized. No hemodynamically significant valvular aortic stenosis. No aortic regurgitation is present. Pulmonic Valve The pulmonic valve is not well visualized. Great Vessels The aortic root is normal size. Pericardium/Pleura There is no pericardial effusion. Interpretation Summary The left ventricular size, thickness and function are normal The left ventricular ejection fraction is normal. The left ventricular wall motion is normal. There is mild mitral regurgitation. Right ventricular systolic pressure is normal. There is trace tricuspid regurgitation. The transmitral spectral Doppler flow pattern is normal for age. MD Stu Sotelo 01/18/2019 12:30 PM
--- NOTE | 2019-01-18 15:44 | CON.ID ---
Consult Consult Specialty:: infectious diseases Referred by:: hospitalist - History of Present Illness History of Present Illness: 48 year old female with a significant PMH of ZENA and BSO (01/10/19, secondary to menorrhagia & fibroid), abdominal aneurysm, and hyperlipidemia who presents to the emergency department for evaluation of intermittent fever. The patient also notes associated nausea and diarrhea. The patient denies vomiting. She denies vaginal bleeding and dysuria. The patient denies chest pain, shortness of breath, headache, and dizziness. Denies chills, vomit, and constipation. Denies dysuria, frequency, urgency, and hematuria. patient recetly was seen by computer programmer analyst and had a procedure done and was d/jesus now with fever,abd pain and leukocytosis - History Source History Provided By: Patient Limitations to Obtaining History: No Limitations - Past Medical History ...LMP: 11/27/18 - Past Surgical History Past Surgical History: Yes: Appendectomy, - Alcohol/Substance Use Hx Alcohol Use: No History of Substance Use: reports: None - Smoking History Smoking history: Unknown if ever smoked Have you smoked in the past 12 months: No - Social History History of Recent Travel: No Home Medications - Allergies Allergies/Adverse Reactions: Allergies Allergy/AdvReac Type Severity Reaction Status Date / Time cefepime Allergy Rash Verified 05/11/19 09:32 oxycodone [From Percocet] Allergy Verified 05/11/19 09:32 - Home Medications Home Medications: Ambulatory Orders Cyclobenzaprine HCl [Flexeril 10 mg] 10 mg PO PRN PRN 12/09/18 Oxycodone HCl/Acetaminophen [Percocet 5-325 mg Tablet] 1 tab PO Q4H #20 tablet MDD 20 01/13/19 Lactobacillus Acidophilus [Bacid -] 1 each PO DAILY #30 capsule 01/27/19 Apixaban [Eliquis] 10 mg PO BID #62 tablet 05/11/19 Review of Systems - Review of Systems Constitutional: reports: Fever Eyes: reports: No Symptoms HENT: reports: No Symptoms Neck: reports: No Symptoms Cardiovascular: reports: No Symptoms Respiratory: reports: No Symptoms Gastrointestinal: reports: Abdominal Pain Genitourinary: reports: No Symptoms Musculoskeletal: reports: No Symptoms Integumentary: reports: No Symptoms Neurological: reports: No Symptoms Endocrine: reports: No Symptoms Hematology/Lymphatic: reports: No Symptoms Psychiatric: reports: No Symptoms Physical Exam Vital Signs: Vital Signs Temperature 101.7 F H 01/18/19 13:31 Pulse Rate 86 01/18/19 09:12 Respiratory Rate 19 01/18/19 07:19 Blood Pressure 123/68 01/18/19 09:12 O2 Sat by Pulse Oximetry (%) 96 01/18/19 07:19 Constitutional: Yes: Well Nourished, Calm, Mild Distress Cardiovascular: Yes: Regular Rate and Rhythm Respiratory: Yes: Regular, CTA Bilaterally Gastrointestinal: Yes: Soft, Hypoactive Bowel Sounds, Tenderness, Other Musculoskeletal: Yes: WNL Extremities: Yes: WNL Neurological: Yes: Alert, Oriented Psychiatric: Yes: Alert, Oriented Labs: CBC, BMP 01/18/19 06:15 01/18/19 06:15 Imaging - Results Chest X-ray: Report Reviewed, Image Reviewed Cat Scan: Report Reviewed, Image Reviewed Assessment/Plan Problem List - Problems (1) Postoperative fever Code(s): R50.82 - POSTPROCEDURAL FEVER (2) Endometrial polyp Code(s): N84.0 - POLYP OF CORPUS UTERI (3) Status post abdominal hysterectomy Code(s): Z90.710 - ACQUIRED ABSENCE OF BOTH CERVIX AND UTERUS Assessment/Plan Fever s/p ZENA Pelvic/adnexal fluid collection/Possible abscess PE Rash - resolved plan will start patient on abx i think patient will need drainage monitor wbc close watch rest as per the team
[2019-01-18] MEDS ORDERED: ACETAMINOPHEN 1000 MG/100 ML VIAL (NON FORMULARY) IVPB ONE (16:05)
[2019-01-18] MEDS ORDERED: ACETAMINOPHEN 325 MG TABLET (FP) ONE (16:06)
[2019-01-18] MEDS ORDERED: CEFEPIME 1 GM/100 ML BAG IVPB ONE (16:18)
[2019-01-18] MEDS ORDERED: ACETAMINOPHEN INJECTION 100 ML IVPB ONE (16:19)
[2019-01-18] MEDS: CEFEPIME 1 GM in DEXTROSE 5%-WATER 100 ML IVPB SCH (16:28)
--- NOTE | 2019-01-18 16:50 | CON.OBG ---
Consult Consult Specialty:: TELETRAY OPERATOR Reason for Consultation:: Pelvic collection - History of Present Illness Chief Complaint: Fever / Shortness of breath / Cough History of Present Illness: HISTORY OF PRESENT ILLNESS: 48F with pmh of HLD, abdominal aneurysm, fibroids, status post abdominal hysterectomy / Bilateral salpingectomy on January 10, presents to ER c/o fever, SOB and cough. Patient was discharged on January 13 in stable condition. TELETRAY OPERATOR consulted due to presence of a complex area of hyperdense tissue and fluid in the left adnexa and midpelvis. I came to see patient, she's lying on the stretcher in mild distress. She and her daughter state that she's been having fever followed by cough since the day after the discharge. Cat scan reviewed, the findings are most likely postoperative in nature. PAST MEDICAL HISTORY: HLD, abdominal aneurysm, fibroids, POD8 from ZENA+b/l salpingectomy PAST SURGICAL HISTORY: ZENA + b/l salphingectomy appendectomy Social History: Smoking: denies Alcohol: denies Drugs: denies Family History: mother with lung and cervical cancer Allergies oxycodone [From Percocet] Allergy (Verified 01/17/19 21:58) PE : Abd : Soft, sterile strips removed. Incision is healing, no bleeding, no serosanguinous discharge. There is some mild tenderness to palpation above the left side of the incision, no erythema, no bruises. Assessment : Pulmonary embolism Status post ZENA / B salpingectomy Pelvic fluid most likely caused by coughing; Abscess unlikely. Plan : Continue antibiotic PE management as per Medicine team I will continue follow up and if necessary will consider drainage. - Past Medical History ...LMP: 11/27/18 - Past Surgical History Past Surgical History: Yes: Appendectomy, - Alcohol/Substance Use Hx Alcohol Use: No History of Substance Use: reports: None - Smoking History Smoking history: Unknown if ever smoked Have you smoked in the past 12 months: No - Social History History of Recent Travel: No Home Medications - Allergies Allergies/Adverse Reactions: Allergies Allergy/AdvReac Type Severity Reaction Status Date / Time oxycodone [From Percocet] Allergy Verified 01/17/19 21:58 - Home Medications Home Medications: Ambulatory Orders Cyclobenzaprine HCl [Flexeril 10 mg] 10 mg PO PRN PRN 12/09/18 Diclofenac Potassium 50 mg PO PRN PRN 01/09/19 Ibuprofen [Motrin -] 600 mg PO Q4H PRN #60 tablet 01/13/19 Oxycodone HCl/Acetaminophen [Percocet 5-325 mg Tablet] 1 tab PO Q4H #20 tablet MDD 20 01/13/19 Physical Exam-TELETRAY OPERATOR Vital Signs: Vital Signs Temperature 101.3 F H 01/18/19 16:00 Pulse Rate 78 01/18/19 16:00 Respiratory Rate 18 01/18/19 16:00 Blood Pressure 133/97 01/18/19 16:00 O2 Sat by Pulse Oximetry (%) 97 01/18/19 12:00 Labs: CBC, BMP 01/18/19 06:15 01/18/19 06:15
--- NOTE | 2019-01-18 17:57 | PN ---
Physical Exam: SUBJECTIVE: Patient seen and examined at bedside. Febrile to 102. C/o SOB. OBJECTIVE: Vital Signs Period Temp Pulse Resp BP Sys/Finch Pulse Ox Last 24 Hr 98.0 F-102.0 F 75-103 16-19 123-154/68-97 96-100 GENERAL: The patient is awake, alert, and fully oriented, in mild distress LUNGS: SOB present. Cough. Breath sounds heard b/l upper & lower lobes, no wheezing appreciated. HEART: Tachycardic. S1S2 heard, no murmurs ABDOMEN: Soft, nondistended, normoactive bowel sounds. TTP surrounding surgical sites. EXTREMITIES: 2+ pulses present b/l. No edema noted. SKIN: no rashes or lesions noted Laboratory Results - last 24 hr Laboratory Last Values WBC 10.2 K/mm3 (4.0-10.0) H 01/18/19 06:15 RBC 3.94 M/mm3 (3.60-5.2) 01/18/19 06:15 Hgb 11.5 GM/dL (10.7-15.3) 01/18/19 06:15 Hct 33.2 % (32.4-45.2) 01/18/19 06:15 MCV 84.3 fl (80-96) 01/18/19 06:15 MCH 29.2 pg (25.7-33.7) 01/18/19 06:15 MCHC 34.7 g/dl (32.0-36.0) 01/18/19 06:15 RDW 14.3 % (11.6-15.6) 01/18/19 06:15 Plt Count 333 K/MM3 (134-434) 01/18/19 06:15 MPV 8.0 fl (7.5-11.1) 01/18/19 06:15 Absolute Neuts (auto) 8.8 K/mm3 (1.5-8.0) H 01/17/19 23:26 Neutrophils % 73.3 % (42.8-82.8) 01/17/19 23:26 Lymphocytes % 16.1 % (8-40) D 01/17/19 23:26 Monocytes % 8.9 % (3.8-10.2) 01/17/19 23:26 Eosinophils % 1.2 % (0-4.5) D 01/17/19 23:26 Basophils % 0.5 % (0-2.0) D 01/17/19 23:26 Nucleated RBC % 0 % (0-0) 01/17/19 23:26 ESR 74 mm/hr (0-30) H 01/18/19 06:15 PT with INR 12.10 SEC (9.7-13.0) 01/18/19 06:15 INR 1.03 (0.83-1.09) 01/18/19 06:15 PTT (Actin FS) 26.6 SECONDS (25.2-36.5) 01/17/19 23:26 Sodium 141 mmol/L (136-145) 01/18/19 06:15 Potassium 4.2 mmol/L (3.5-5.1) 01/18/19 06:15 Chloride 109 mmol/L (98-107) H 01/18/19 06:15 Carbon Dioxide 28 mmol/L (21-32) 01/18/19 06:15 Anion Gap 5 MMOL/L (8-16) L 01/18/19 06:15 BUN 11.2 mg/dL (7-18) 01/18/19 06:15 Creatinine 0.6 mg/dL (0.55-1.3) 01/18/19 06:15 Est GFR (CKD-EPI)AfAm 123.18 01/18/19 06:15 Est GFR (CKD-EPI)NonAf 106.28 01/18/19 06:15 Random Glucose 94 mg/dL (74-106) 01/18/19 06:15 Lactic Acid 0.9 mmol/L (0.4-2.0) 01/17/19 23:26 Calcium 8.3 mg/dL (8.5-10.1) L 01/18/19 06:15 Magnesium 2.1 mg/dL (1.8-2.4) 01/18/19 06:15 Total Bilirubin 0.4 mg/dL (0.2-1) 01/18/19 06:15 AST 111 U/L (15-37) H 01/18/19 06:15 ALT 283 U/L (13-61) H 01/18/19 06:15 Alkaline Phosphatase 185 U/L (45-117) H 01/18/19 06:15 Troponin I < 0.02 ng/ml (0.00-0.05) 01/18/19 06:15 C-Reactive Protein 9.5 MG/DL (0.00-0.3) H 01/18/19 06:15 B-Natriuretic Peptide 16.6 pg/ml (5-125) 01/18/19 06:15 Total Protein 6.5 g/dl (6.4-8.2) 01/18/19 06:15 Albumin 3.0 g/dl (3.4-5.0) L 01/18/19 06:15 Lipase 114 U/L (73-393) 01/17/19 23:26 TSH 7.24 uIU/ml (0.358-3.74) H 01/18/19 06:15 Acetaminophen 2.3 ug/mL (10-30) L 01/17/19 23:26 Active Medications Current Medications Enoxaparin Sodium (Lovenox -) 80 mg SQ BID KRISTI Last Admin: 01/18/19 11:35 Dose: 80 mg Lactated Ringer's (Lactated Ringers Solution) 1,000 mls @ 75 mls/hr IV ASDIR KRISTI Last Admin: 01/18/19 07:11 Dose: 75 mls/hr Cefepime HCl 1 gm/ Dextrose 100 mls @ 200 mls/hr IVPB Q8H-IV KRISTI; Protocol Last Admin: 01/18/19 16:28 Dose: 200 mls/hr Imaging: CT abd: 1. Hepatomegaly with diffuse fatty infiltration of the liver. 2. S/P hysterectomy with postoperative changes as described above. Examination of the pelvis demonstrates a complex area of hyperdense tissue and fluid in the left adnexa and midpelvis. The patient is S/P hysterectomy and these changes are most likely postoperative in nature. The possibility of a developing abscess cannot be excluded. Abd US: 1. No evidence of cholelithiasis or acute cholecystitis. 2. Hepatomegaly with diffuse fatty infiltration of the liver. CTA chest: PE RLL B/l legs doppler: No evidence of deep venous thrombosis. Abd doppler:1. Diffuse fatty infiltration of the liver. 2. Patent portal and hepatic venous systems with no evidence of portal vein thrombosis. Please see above discussion. EKG normal ASSESSMENT/PLAN: 48 y.o. F PMH abd aneurysm, fibroids, HLD. Post-op day #8 from ZENA + b/l saplingectomy (d/c'd 01/13/19) who presented with generalized fatigue, nausea, chills and fevers. Found on chest CTA to have PE within RLL. #PE -CTA + for RLL PE -Lovenox 80 BID -Echo: Normal EF. Mild MR, trace TR. -Shortness of breath persists; monitor vitals, lung checks tonight #Fluid collection L adnexa & midpelvis -Leukocytosis downtrending -Plant Utility Person on board: does not believe this is an abscess -Cefepime abx -Blood cx pending -ID consulted (Dr. Banegas) -Pt is febrile; monitor vitals #Fatty liver -F/u hepatitis workup -Transaminitis, improving #FEN -LR @ 75mL/ hr -Trend BMP -Diabetic diet #Dispo -Tele Visit type - Emergency Visit Emergency Visit: No - New Patient This patient is new to me today: No - Critical Care Critical Care patient: No ATTENDING PHYSICIAN STATEMENT I saw and evaluated the patient. I reviewed the resident's note and discussed the case with the resident. I agree with the resident's findings and plan as documented. SUBJECTIVE: OBJECTIVE: ASSESSMENT AND PLAN:
--- NOTE | 2019-01-18 20:18 | PN ---
Teaching Attending Note Name of Resident: Keyanna Hunter ATTENDING PHYSICIAN STATEMENT I saw and evaluated the patient. I reviewed the resident's note and discussed the case with the resident. I agree with the resident's findings and plan as documented. SUBJECTIVE: Feels general myalgia and lethargy - no CP/palpitations/SOB. complains of abdominal discomfort above surgical incision site. OBJECTIVE: Febrile, Tmax 102. Hemodynamically Stable Last Vital Signs Temp Pulse Resp BP Pulse Ox 99 F 92 H 20 102/62 98 01/18/19 19:41 01/18/19 19:41 01/18/19 19:41 01/18/19 19:41 01/18/19 19:41 HEENT - Atraumatic, Normocephalic. Heart - S1, S2, soft SM Lungs - clear to auscultation. Abdomen - high BMI, suprapubic surgical incision site clean, with steri-strips Extremities - no calf tenderness. Laboratory Results - last 24 hr 01/17/19 01/17/19 01/17/19 23:26 23:26 23:26 WBC 12.0 H RBC 4.26 Hgb 12.1 Hct 35.5 MCV 83.5 MCH 28.4 MCHC 34.0 RDW 14.4 Plt Count 351 D MPV 8.1 D Absolute Neuts (auto) 8.8 H Neutrophils % 73.3 Lymphocytes % 16.1 D Monocytes % 8.9 Eosinophils % 1.2 D Basophils % 0.5 D Nucleated RBC % 0 ESR PT with INR INR PTT (Actin FS) 26.6 Sodium 140 Potassium 4.0 Chloride 106 Carbon Dioxide 28 Anion Gap 7 L BUN 13.6 Creatinine 0.7 Est GFR (CKD-EPI)AfAm 117.09 Est GFR (CKD-EPI)NonAf 101.02 Random Glucose 103 Lactic Acid Calcium 8.9 Magnesium Total Bilirubin 0.3 AST 144 H ALT 320 H Alkaline Phosphatase 213 H Troponin I C-Reactive Protein B-Natriuretic Peptide Total Protein 7.1 Albumin 3.3 L Lipase 114 TSH Acetaminophen 2.3 L 01/17/19 01/18/19 01/18/19 23:26 06:15 06:15 WBC 10.2 H RBC 3.94 Hgb 11.5 Hct 33.2 MCV 84.3 MCH 29.2 MCHC 34.7 RDW 14.3 Plt Count 333 MPV 8.0 Absolute Neuts (auto) Neutrophils % Lymphocytes % Monocytes % Eosinophils % Basophils % Nucleated RBC % ESR PT with INR 12.10 INR 1.03 PTT (Actin FS) Sodium Potassium Chloride Carbon Dioxide Anion Gap BUN Creatinine Est GFR (CKD-EPI)AfAm Est GFR (CKD-EPI)NonAf Random Glucose Lactic Acid 0.9 Calcium Magnesium Total Bilirubin AST ALT Alkaline Phosphatase Troponin I C-Reactive Protein B-Natriuretic Peptide Total Protein Albumin Lipase TSH Acetaminophen 01/18/19 01/18/19 01/18/19 06:15 06:15 06:15 WBC RBC Hgb Hct MCV MCH MCHC RDW Plt Count MPV Absolute Neuts (auto) Neutrophils % Lymphocytes % Monocytes % Eosinophils % Basophils % Nucleated RBC % ESR 74 H PT with INR INR PTT (Actin FS) Sodium 141 Potassium 4.2 Chloride 109 H Carbon Dioxide 28 Anion Gap 5 L BUN 11.2 Creatinine 0.6 Est GFR (CKD-EPI)AfAm 123.18 Est GFR (CKD-EPI)NonAf 106.28 Random Glucose 94 Lactic Acid Calcium 8.3 L Magnesium 2.1 Total Bilirubin 0.4 AST 111 H ALT 283 H Alkaline Phosphatase 185 H Troponin I < 0.02 C-Reactive Protein 9.5 H B-Natriuretic Peptide Total Protein 6.5 Albumin 3.0 L Lipase TSH 7.24 H Acetaminophen 01/18/19 06:15 WBC RBC Hgb Hct MCV MCH MCHC RDW Plt Count MPV Absolute Neuts (auto) Neutrophils % Lymphocytes % Monocytes % Eosinophils % Basophils % Nucleated RBC % ESR PT with INR INR PTT (Actin FS) Sodium Potassium Chloride Carbon Dioxide Anion Gap BUN Creatinine Est GFR (CKD-EPI)AfAm Est GFR (CKD-EPI)NonAf Random Glucose Lactic Acid Calcium Magnesium Total Bilirubin AST ALT Alkaline Phosphatase Troponin I C-Reactive Protein B-Natriuretic Peptide 16.6 Total Protein Albumin Lipase TSH Acetaminophen Current Medications Generic Name Dose Route Start Last Admin Trade Name Freq PRN Reason Stop Dose Admin Enoxaparin Sodium 80 mg 01/18/19 10:00 01/18/19 11:35 Lovenox - SQ 80 mg BID KRISTI Administration Lactated Ringer's 1,000 mls @ 75 mls/hr 01/18/19 04:15 01/18/19 07:11 Lactated Ringers Solution IV 75 mls/hr ASDIR KRISTI Administration Cefepime HCl 1 gm/ Dextrose 100 mls @ 200 mls/hr 01/18/19 16:00 01/18/19 16: 28 IVPB 200 mls/hr Q8H-IV KRISTI Administration Protocol Home Medications Medication Instructions Recorded Cyclobenzaprine HCl [Flexeril 10 10 mg PO PRN PRN 12/09/18 mg] Diclofenac Potassium 50 mg PO PRN PRN 01/09/19 Ibuprofen [Motrin -] 600 mg PO Q4H PRN #60 tablet 01/13/19 Oxycodone HCl/Acetaminophen 1 tab PO Q4H #20 tablet MDD 20 01/13/19 [Percocet 5-325 mg Tablet] ASSESSMENT AND PLAN: 48 year old female with history of HLD, AAA, Fibroid Uterus, POD 9 s/p ZENA and BSO presented with fevers, chills, malaise, found to have intra-abdominal fluid , possible collection and RLL PE. Abdominal US - fatty liver CT A/P - Heterogenous fluid collection, possible RLL pulmonary embolus CTA Chest - RLL PE. 1. Acute PE, post-op Hemodynamically Stable, stable respiratory status, no CP/dyspnea/hemoptysis Echo - no R heart strain Lovenox SQ started. 2. Intra-abdominal/pelvic fluid collection post-op, likely abscess Febrile. Given Zosyn/Vanco in ED - changed to Cefepime by Dr. Banegas. 3. Transaminitis - etiology unclear. Abdominal US - fatty liver, no acute cholecystitis. No portal vein thrombosis on vascular study. Will monitor. DVT Px- on Lovenox.
[2019-01-19 01:30] VITALS: BMI 32.1
[2019-01-19] MEDS ORDERED: DEXTROSE 5%-WATER 100 ML IVPB ONE ×3 (01:42→18:38)
[2019-01-19] MEDS ORDERED: CEFEPIME HCL 1 GM VIAL (RESTRICTED TO ID) ONE ×3 (01:42→18:38)
[2019-01-19] MEDS: CEFEPIME 1 GM in DEXTROSE 5%-WATER 100 ML IVPB SCH ×3 (02:41→19:03)
[2019-01-19] MEDS: LACTATED RINGERS SOLUTION 1,000 ML IV SCH ×2 (06:07→22:18)
[2019-01-19 06:56] LABS: BASO % 0.1 % (0-2.0); EOS % 0.9 % (0-4.5); HEMOGLOBIN 11.2 GM/dL (10.7-15.3); LYMPH % 14.8 % (8-40); MCH 28.2 pg (25.7-33.7); MCHC 33.9 g/dl (32.0-36.0); MEAN PLT VOLUME 7.8 fl (7.5-11.1); NEUT % 76.2 % (42.8-82.8); RBC 3.98 M/mm3 (3.60-5.2); RDW 14.4 % (11.6-15.6); WHITE BLOOD COUNT 11.5 K/mm3 (4.0-10.0)
[2019-01-19 07:26] LABS: BILIRUBIN,TOTAL 0.5 mg/dL (0.2-1); BLOOD UREA NITROGEN 11.7 mg/dL (7-18); CALCIUM 8.8 mg/dL (8.5-10.1); CREATININE 0.6 mg/dL (0.55-1.3); MAGNESIUM 2.3 mg/dL (1.8-2.4); PHOSPHOROUS 2.8 mg/dL (2.5-4.9); POTASSIUM 3.9 mmol/L (3.5-5.1); TOT PROT 6.5 g/dl (6.4-8.2)
[2019-01-19 07:53] LABS: INR 1.18 (0.83-1.09); PROTHROMBIN TIME (PATIENT) 13.9 SEC (9.7-13.0)
[2019-01-19 08:09] LABS: PLATELET COUNT 349 K/MM3 (134-434)
[2019-01-19] MEDS: ENOXAPARIN NA (PORCINE) 80 MG/0.8 ML DISP.SYRIN SQ SCH (10:03)
[2019-01-19] MEDS ORDERED: ACETAMINOPHEN 1000 MG/100 ML VIAL (NON FORMULARY) IVPB ONE (11:13)
--- NOTE | 2019-01-19 12:01 | PN ---
Physical Exam: SUBJECTIVE: Patient seen and examined at bedside. C/o abdominal tenderness . Currently afebrile, Tmax 102 last night. OBJECTIVE: Vital Signs Period Temp Pulse Resp BP Sys/Finch Pulse Ox Last 24 Hr 98.3 F-102.0 F 78-103 18-20 102-133/62-97 97-98 GENERAL: Lying in bed. In mild distress d/t abdominal pain. HEENT: NCAT. LUNGS: Diminshed breath sounds @RLL. No incr work of breathing. HEART: Regular rate and rhythm, S1, S2 without murmurs ABDOMEN: Soft, nondistended. Tender to palpation in LLQ, midepigastric region. Suprapubic incision ite C/D/I EXTREMITIES: 2+ pulses present, well-perfused, no edema SKIN: Warm, dry, normal turgor, no rashes or lesions noted Laboratory Results - last 24 hr Laboratory Last Values WBC 11.5 K/mm3 (4.0-10.0) H 01/19/19 06:25 RBC 3.98 M/mm3 (3.60-5.2) 01/19/19 06:25 Hgb 11.2 GM/dL (10.7-15.3) 01/19/19 06:25 Hct 33.0 % (32.4-45.2) 01/19/19 06:25 MCV 83.0 fl (80-96) 01/19/19 06:25 MCH 28.2 pg (25.7-33.7) 01/19/19 06:25 MCHC 33.9 g/dl (32.0-36.0) 01/19/19 06:25 RDW 14.4 % (11.6-15.6) 01/19/19 06:25 Plt Count 349 K/MM3 (134-434) 01/19/19 06:25 MPV 7.8 fl (7.5-11.1) 01/19/19 06:25 Absolute Neuts (auto) 8.7 K/mm3 (1.5-8.0) H 01/19/19 06:25 Neutrophils % 76.2 % (42.8-82.8) 01/19/19 06:25 Lymphocytes % 14.8 % (8-40) 01/19/19 06:25 Monocytes % 8.0 % (3.8-10.2) 01/19/19 06:25 Eosinophils % 0.9 % (0-4.5) 01/19/19 06:25 Basophils % 0.1 % (0-2.0) 01/19/19 06:25 Nucleated RBC % 0 % (0-0) 01/19/19 06:25 ESR 74 mm/hr (0-30) H 01/18/19 06:15 PT with INR 13.90 SEC (9.7-13.0) H 01/19/19 06:25 INR 1.18 (0.83-1.09) H 01/19/19 06:25 PTT (Actin FS) 26.6 SECONDS (25.2-36.5) 01/17/19 23:26 Sodium 140 mmol/L (136-145) 01/19/19 06:25 Potassium 3.9 mmol/L (3.5-5.1) 01/19/19 06:25 Chloride 106 mmol/L (98-107) 01/19/19 06:25 Carbon Dioxide 28 mmol/L (21-32) 01/19/19 06:25 Anion Gap 5 MMOL/L (8-16) L 01/19/19 06:25 BUN 11.7 mg/dL (7-18) 01/19/19 06:25 Creatinine 0.6 mg/dL (0.55-1.3) 01/19/19 06:25 Est GFR (CKD-EPI)AfAm 123.18 01/19/19 06:25 Est GFR (CKD-EPI)NonAf 106.28 01/19/19 06:25 Random Glucose 108 mg/dL (74-106) H 01/19/19 06:25 Lactic Acid 0.9 mmol/L (0.4-2.0) 01/17/19 23:26 Calcium 8.8 mg/dL (8.5-10.1) 01/19/19 06:25 Phosphorus 2.8 mg/dL (2.5-4.9) 01/19/19 06:25 Magnesium 2.3 mg/dL (1.8-2.4) 01/19/19 06:25 Total Bilirubin 0.5 mg/dL (0.2-1) 01/19/19 06:25 AST 94 U/L (15-37) H 01/19/19 06:25 ALT 246 U/L (13-61) H 01/19/19 06:25 Alkaline Phosphatase 204 U/L (45-117) H 01/19/19 06:25 Troponin I < 0.02 ng/ml (0.00-0.05) 01/18/19 06:15 C-Reactive Protein 9.5 MG/DL (0.00-0.3) H 01/18/19 06:15 B-Natriuretic Peptide 16.6 pg/ml (5-125) 01/18/19 06:15 Total Protein 6.5 g/dl (6.4-8.2) 01/19/19 06:25 Albumin 3.0 g/dl (3.4-5.0) L 01/19/19 06:25 Lipase 114 U/L (73-393) 01/17/19 23:26 TSH 7.24 uIU/ml (0.358-3.74) H 01/18/19 06:15 Free T4 1.04 ng/dl (0.76-1.46) 01/19/19 06:25 Acetaminophen 2.3 ug/mL (10-30) L 01/17/19 23:26 Active Medications Current Medications Enoxaparin Sodium (Lovenox -) 80 mg SQ BID KRISTI Lactated Ringer's (Lactated Ringers Solution) 1,000 mls @ 75 mls/hr IV Cefepime HCl 1 gm/ Dextrose 100 mls @ 200 mls/hr IVPB Q8H-IV KRISTI ASSESSMENT/PLAN: 48 y.o. PMH abd aneurysm, fibroids, HLD. Post op day # 9 s/p ZENA + b/l saplingectomy (d/c'd 01/13/19) who presented with generalized fatigue, nausea, chills and fevers found to have PE within RLL on chest CTA. #RLL PE -CTA confirmed -LVX 80 BID -SOB improving -Normal echo #Fluid collection L adnexa & midpelvis -Leukocytosis persists (11.5 today) -[employer] on board, recs no drainage at this time. -C/w Cefepime, day #2 abx (started 01/18/19) -Blood cx NGTD -ID (Dr. Banegas): rec c/w abx, repeat ct in a few days to assess if resolved -Febrile to 102 last night; currently afebrile #Pain control -Ofirmev 1g given today -PT allergic to percocet/ oxy #Fatty liver -Transaminitis improving -Hepatitis workup: pending #FEN -LR -Trend BMP -Diabetic diet #DVT PPX -LVX -SCDs Visit type - Emergency Visit Emergency Visit: No - New Patient This patient is new to me today: No - Critical Care Critical Care patient: No ATTENDING PHYSICIAN STATEMENT I saw and evaluated the patient. I reviewed the resident's note and discussed the case with the resident. I agree with the resident's findings and plan as documented. SUBJECTIVE: OBJECTIVE: ASSESSMENT AND PLAN:
--- NOTE | 2019-01-19 13:39 | PN ---
Teaching Attending Note Name of Resident: Keyanna Hunter ATTENDING PHYSICIAN STATEMENT I saw and evaluated the patient. I reviewed the resident's note and discussed the case with the resident. I agree with the resident's findings and plan as documented. SUBJECTIVE: Feeling better - less lethargy/weakness. No CP/palpitations/SOB. Complains of ongoing/worsening abdominal discomfort above surgical incision site. No PV discharge/diarrhea. OBJECTIVE: Tmax 102. Hemodynamically Stable Last Vital Signs Temp Pulse Resp BP Pulse Ox 99.1 F 89 18 121/71 98 01/19/19 09:00 01/19/19 09:00 01/19/19 09:00 01/19/19 09:00 01/19/19 09:00 Heart - S1, S2, soft SM Lungs - clear to auscultation. Abdomen - high BMI, suprapubic surgical incision site clean, with steri-strips Extremities - no calf tenderness. Laboratory Results - last 24 hr 01/19/19 01/19/19 01/19/19 06:25 06:25 06:25 WBC 11.5 H RBC 3.98 Hgb 11.2 Hct 33.0 MCV 83.0 MCH 28.2 MCHC 33.9 RDW 14.4 Plt Count 349 MPV 7.8 Absolute Neuts (auto) 8.7 H Neutrophils % 76.2 Lymphocytes % 14.8 Monocytes % 8.0 Eosinophils % 0.9 Basophils % 0.1 Nucleated RBC % 0 PT with INR 13.90 H INR 1.18 H Sodium 140 Potassium 3.9 Chloride 106 Carbon Dioxide 28 Anion Gap 5 L BUN 11.7 Creatinine 0.6 Est GFR (CKD-EPI)AfAm 123.18 Est GFR (CKD-EPI)NonAf 106.28 Random Glucose 108 H Calcium 8.8 Phosphorus 2.8 Magnesium 2.3 Total Bilirubin 0.5 AST 94 H ALT 246 H Alkaline Phosphatase 204 H Total Protein 6.5 Albumin 3.0 L Free T4 1.04 Current Medications Generic Name Dose Route Start Last Admin Trade Name Freq PRN Reason Stop Dose Admin Enoxaparin Sodium 80 mg 01/18/19 10:00 01/19/19 10:03 Lovenox - SQ 80 mg BID KRISTI Administration Lactated Ringer's 1,000 mls @ 75 mls/hr 01/18/19 04:15 01/19/19 06:07 Lactated Ringers Solution IV 75 mls/hr ASDIR KRISTI Administration Cefepime HCl 1 gm/ Dextrose 100 mls @ 200 mls/hr 01/18/19 16:00 01/19/19 10: 04 IVPB 200 mls/hr Q8H-IV KRISTI Administration Protocol ASSESSMENT AND PLAN: 48 year old female with history of HLD, AAA, Fibroid Uterus, POD 10 s/p ZENA presented with fevers, chills, malaise, found to have intra-abdominal fluid collection and RLL PE. Abdominal US - fatty liver CT A/P - Heterogenous fluid collection, possible RLL pulmonary embolus CTA Chest - RLL PE. 1. Acute PE, post-op Hemodynamically Stable, stable respiratory status, no CP/dyspnea/hemoptysis Echo - no R heart strain Transition from Lovenox to Heparin drip pending definitive Stock Replenisher/Surgical intervention. 2. Intra-abdominal/pelvic fluid collection post-op s/p ZENA, likely abscess Febrile. Given Zosyn/Vanco in ED - changed to Cefepime by ID. For discussion with DOLL WIGS HACKLER and IR re: appropriate intervention. 3. Transaminitis - etiology unclear, improving. Abdominal US - fatty liver, no acute cholecystitis. No portal vein thrombosis on vascular study. Hepatitis panel pending. Will monitor. DVT Px - on Heparin drip
--- NOTE | 2019-01-19 14:27 | PN ---
Progress Note, Physician History of Present Illness: patient feeling better tody still very tender in the abdomen wbc stil n the higher side - Current Medication List Current Medications: Active Medications Heparin Sodium (Porcine) (Heparin -) 1,000 unit IVPUSH PRN PRN PRN Reason: Heparin Heparin Sodium (Porcine) (Heparin -) 5,000 unit IVPUSH PRN PRN PRN Reason: Heparin Lactated Ringer's (Lactated Ringers Solution) 1,000 mls @ 75 mls/hr IV ASDIR KRISTI Last Admin: 01/19/19 06:07 Dose: 75 mls/hr Cefepime HCl 1 gm/ Dextrose 100 mls @ 200 mls/hr IVPB Q8H-IV KRISTI; Protocol Last Admin: 01/19/19 10:04 Dose: 200 mls/hr Heparin Sodium (Porcine) 25, (000 unit/ Sodium Chloride) 500 mls @ 20 mls/hr IV TITR KRISTI; Protocol - Objective Vital Signs: Vital Signs Temperature 99.1 F 01/19/19 09:00 Pulse Rate 89 01/19/19 09:00 Respiratory Rate 18 01/19/19 09:00 Blood Pressure 121/71 01/19/19 09:00 O2 Sat by Pulse Oximetry (%) 98 01/19/19 09:00 Constitutional: Yes: Calm, Mild Distress Cardiovascular: Yes: Regular Rate and Rhythm Respiratory: Yes: Regular, CTA Bilaterally Gastrointestinal: Yes: Soft, Hypoactive Bowel Sounds, Tenderness Musculoskeletal: Yes: WNL Extremities: Yes: WNL Neurological: Yes: Alert, Oriented Labs: CBC, BMP 01/19/19 06:25 01/19/19 06:25 INR, PTT INR 1.18 (0.83-1.09) H 01/19/19 06:25 - ....Imaging Cat Scan: Report Reviewed, Image Reviewed Assessment/Plan 48 year old female with history of HLD, AAA, Fibroid Uterus, POD 10 s/p ZENA presented with fevers, chills, malaise, found to have intra-abdominal fluid collection and RLL PE. afer lookng at the collection and its density i am worried that the collection could be an abscess ,though patient is a fresh post op patient has been afebrile on abx,starting to feel better would continue abx and repeat a ct scan after couple of del real to msee for resolution monitor wbc if wbc starts increasing then will repeat imaging studies at the moment close watch on fever and wbc once stable will deescalte
--- NOTE | 2019-01-19 15:22 | PN ---
Progress Note (short form) - Note Progress Note: 48F with pmh of HLD, abdominal aneurysm, fibroids, status post abdominal hysterectomy / Bilateral salpingectomy on January 10, presents to ER c/o fever, SOB and cough. Patient was discharged on January 13 in stable condition. COWLMAN consulted due to presence of a complex area of hyperdense tissue and fluid in the left adnexa and midpelvis. Patient seen and evaluated, she's lying comfortably in bed. She's afebrile and vitals are stable. WBC : 11.5 PE : ABD : soft, no distention. + mild tenderness above the incision, no erythema. Incision is healing, no drainage of purulent nor serosanguinous discharge. ASS / Plan : Pulmonary embolism Pelvic collection Continue anticoagulant F/U repeat WBC ( if WBC increases, imaging studies will be repeated; at this point collection is not accessible for drainage as per Interventional Radiologist. Continue IV antibiotic COWLMAN will follow
[2019-01-19] MEDS ORDERED: ONDANSETRON 4 MG/2 ML VIAL IVPUSH PRN (21:56)
[2019-01-19] MEDS ORDERED: ACETAMINOPHEN 325 MG TABLET (FP) PO PRN (21:56)
[2019-01-19] MEDS ORDERED: HEPARIN NA (PORCINE) 5,000 UNITS/ML 1ML VIAL IVPUSH PRN ×2 (22:00)
[2019-01-19] MEDS ORDERED: HEPARIN - 25,000 UNIT in SODIUM CHLORIDE 495 ML IV SCH (22:00)
[2019-01-19] MEDS: PIPERACILLIN/TAZOB 3.375 GM 3.375 GM in DEXTROSE 5%-WATER - 50 ML IVPB SCH (23:01)
[2019-01-20] MEDS ORDERED: diphenhydrAMINE HCL 25 MG CAPSULE (FP) PO ONE ×3 (00:57→20:22)
[2019-01-20] MEDS ORDERED: DEXTROSE 5%-WATER 100 ML IVPB ONE ×3 (00:59→17:14)
[2019-01-20] MEDS ORDERED: CEFEPIME HCL 1 GM VIAL (RESTRICTED TO ID) ONE ×3 (00:59→17:14)
[2019-01-20] MEDS: CEFEPIME 1 GM in DEXTROSE 5%-WATER 100 ML IVPB SCH ×3 (01:05→18:16)
[2019-01-20 07:47] LABS: INR 1.12 (0.83-1.09); PROTHROMBIN TIME (PATIENT) 13.2 SEC (9.7-13.0)
[2019-01-20 07:55] LABS: BILIRUBIN,TOTAL 0.3 mg/dL (0.2-1); BLOOD UREA NITROGEN 10.6 mg/dL (7-18); CREATININE 0.5 mg/dL (0.55-1.3); MAGNESIUM 2.4 mg/dL (1.8-2.4); PHOSPHOROUS 3.4 mg/dL (2.5-4.9); POTASSIUM 4.1 mmol/L (3.5-5.1); TOT PROT 6.9 g/dl (6.4-8.2)
[2019-01-20] MEDS: LACTATED RINGERS SOLUTION 1,000 ML IV SCH (08:24)
[2019-01-20] MEDS: APIXABAN 5 MG TABLET PO SCH ×2 (11:43→21:05)
[2019-01-20 13:35] LABS: BASO % 0.7 % (0-2.0); EOS % 1.5 % (0-4.5); HEMATOCRIT 34.8 % (32.4-45.2); HEMOGLOBIN 11.5 GM/dL (10.7-15.3); LYMPH % 16.9 % (8-40); MCH 28.1 pg (25.7-33.7); MEAN CELL VOLUME 85.1 fl (80-96); MEAN PLT VOLUME 9.4 fl (7.5-11.1); MONO % 6.6 % (3.8-10.2); NEUT % 74.3 % (42.8-82.8); PLATELET COUNT 390 K/MM3 (134-434); RBC 4.09 M/mm3 (3.60-5.2); RDW 14.4 % (11.6-15.6)
--- NOTE | 2019-01-20 13:42 | PN ---
Teaching Attending Note Name of Resident: Keyanna Hunter ATTENDING PHYSICIAN STATEMENT I saw and evaluated the patient. I reviewed the resident's note and discussed the case with the resident. I agree with the resident's findings and plan as documented. SUBJECTIVE: Feeling better - pain improving. No CP/palpitations/SOB. No further fever. No PV discharge/diarrhea. OBJECTIVE: Tmax 99.8. Hemodynamically Stable Last Vital Signs Temp Pulse Resp BP Pulse Ox 98.9 F 78 18 112/65 97 01/20/19 09:00 01/20/19 09:00 01/20/19 09:00 01/20/19 09:00 01/19/19 21:00 Heart - S1, S2, soft SM Lungs - clear to auscultation. Abdomen - high BMI, Lower abdominal tenderness, suprapubic surgical incision site clean, with steri-strips Extremities - no calf tenderness. Laboratory Results - last 24 hr 01/20/19 01/20/19 01/20/19 04:15 06:20 06:20 WBC RBC Hgb Hct MCV MCH MCHC RDW Plt Count MPV Absolute Neuts (auto) Neutrophils % Lymphocytes % Monocytes % Eosinophils % Basophils % Nucleated RBC % PT with INR 13.20 H INR 1.12 H PTT (Actin FS) 49.9 H Sodium 139 Potassium 4.1 Chloride 105 Carbon Dioxide 28 Anion Gap 6 L BUN 10.6 Creatinine 0.5 L Est GFR (CKD-EPI)AfAm 130.79 Est GFR (CKD-EPI)NonAf 112.85 Random Glucose 95 Calcium 9.0 Phosphorus 3.4 Magnesium 2.4 Total Bilirubin 0.3 AST 70 H ALT 215 H Alkaline Phosphatase 222 H Total Protein 6.9 Albumin 3.0 L 01/20/19 06:20 WBC 11.0 H RBC 4.09 Hgb 11.5 Hct 34.8 MCV 85.1 MCH 28.1 MCHC 33.0 RDW 14.4 Plt Count 390 MPV 9.4 D Absolute Neuts (auto) 8.1 H Neutrophils % 74.3 Lymphocytes % 16.9 Monocytes % 6.6 Eosinophils % 1.5 Basophils % 0.7 D Nucleated RBC % 0 PT with INR INR PTT (Actin FS) Sodium Potassium Chloride Carbon Dioxide Anion Gap BUN Creatinine Est GFR (CKD-EPI)AfAm Est GFR (CKD-EPI)NonAf Random Glucose Calcium Phosphorus Magnesium Total Bilirubin AST ALT Alkaline Phosphatase Total Protein Albumin Current Medications Generic Name Dose Route Start Last Admin Trade Name Freq PRN Reason Stop Dose Admin Apixaban 10 mg 01/20/19 11:30 01/20/19 11:43 Eliquis - PO 01/26/19 23:59 10 mg BID KRISTI Administration Lactated Ringer's 1,000 mls @ 75 mls/hr 01/18/19 04:15 01/20/19 08:24 Lactated Ringers Solution IV 75 mls/hr ASDIR KRISTI Administration Cefepime HCl 1 gm/ Dextrose 100 mls @ 200 mls/hr 01/18/19 16:00 01/20/19 10: 42 IVPB 200 mls/hr Q8H-IV KRISTI Administration Protocol Home Medications Medication Instructions Recorded Cyclobenzaprine HCl [Flexeril 10 10 mg PO PRN PRN 12/09/18 mg] Diclofenac Potassium 50 mg PO PRN PRN 01/09/19 Ibuprofen [Motrin -] 600 mg PO Q4H PRN #60 tablet 01/13/19 Oxycodone HCl/Acetaminophen 1 tab PO Q4H #20 tablet MDD 20 01/13/19 [Percocet 5-325 mg Tablet] ASSESSMENT AND PLAN: 48 year old female with history of HLD, AAA, Fibroid Uterus, POD 10 s/p ZENA presented with fevers, chills, malaise, found to have intra-abdominal fluid collection and RLL PE. Abdominal US - fatty liver CT A/P - Heterogenous fluid collection, possible RLL pulmonary embolus CTA Chest - RLL PE. 1. Acute PE, post-op Hemodynamically Stable, stable respiratory status, no CP/dyspnea/hemoptysis Echo - no R heart strain Started on Eliquis. 2. Intra-abdominal/pelvic fluid collection post-op s/p ZENA, likely abscess Febrile on presentation, now Tmax 99.8. Given Zosyn/Vanco in ED - changed to Cefepime by ID. Discussed with IR - abscess not amenable to IR guided drainage. For conservative management with Abx as per ID. 3. Transaminitis - etiology unclear, improving. Abdominal US - fatty liver, no acute cholecystitis. No portal/hepatic venous thrombosis on vascular US. Hepatitis panel pending. Will monitor. DVT Px - on Eliquis.
--- NOTE | 2019-01-20 16:22 | PN ---
Physical Exam: SUBJECTIVE: Patient seen and examined. Abdominal pain improving. Denies SOB. Afebrile. No complaints at this time. OBJECTIVE: Vital Signs Period Temp Pulse Resp BP Sys/Finch Pulse Ox Last 24 Hr 98.3 F-99.8 F 71-83 18-20 99-136/54-80 97 GENERAL: The patient is awake, alert, and fully oriented, in no acute distress. HEENT: NCAT LUNGS: CTABL. No incr work of breathing. HEART: Regular rate and rhythm, S1, S2 without murmur, rub or gallop. ABDOMEN: Mild tenderness to palpation. Soft, nondistended, normoactive bowel sounds. Suprapubic incision C/D/I EXTREMITIES: 2+ pulses present, well-perfused, no edema SKIN: Warm, dry, normal turgor, no rashes or lesions noted Laboratory Results - last 24 hr Laboratory Last Values WBC 11.0 K/mm3 (4.0-10.0) H 01/20/19 06:20 RBC 4.09 M/mm3 (3.60-5.2) 01/20/19 06:20 Hgb 11.5 GM/dL (10.7-15.3) 01/20/19 06:20 Hct 34.8 % (32.4-45.2) 01/20/19 06:20 MCV 85.1 fl (80-96) 01/20/19 06:20 MCH 28.1 pg (25.7-33.7) 01/20/19 06:20 MCHC 33.0 g/dl (32.0-36.0) 01/20/19 06:20 RDW 14.4 % (11.6-15.6) 01/20/19 06:20 Plt Count 390 K/MM3 (134-434) 01/20/19 06:20 MPV 9.4 fl (7.5-11.1) D 01/20/19 06:20 Absolute Neuts (auto) 8.1 K/mm3 (1.5-8.0) H 01/20/19 06:20 Neutrophils % 74.3 % (42.8-82.8) 01/20/19 06:20 Lymphocytes % 16.9 % (8-40) 01/20/19 06:20 Monocytes % 6.6 % (3.8-10.2) 01/20/19 06:20 Eosinophils % 1.5 % (0-4.5) 01/20/19 06:20 Basophils % 0.7 % (0-2.0) D 01/20/19 06:20 Nucleated RBC % 0 % (0-0) 01/20/19 06:20 ESR 74 mm/hr (0-30) H 01/18/19 06:15 PT with INR 13.20 SEC (9.7-13.0) H 01/20/19 06:20 INR 1.12 (0.83-1.09) H 01/20/19 06:20 PTT (Actin FS) 49.9 SECONDS (25.2-36.5) H 01/20/19 04:15 Sodium 139 mmol/L (136-145) 01/20/19 06:20 Potassium 4.1 mmol/L (3.5-5.1) 01/20/19 06:20 Chloride 105 mmol/L (98-107) 01/20/19 06:20 Carbon Dioxide 28 mmol/L (21-32) 01/20/19 06:20 Anion Gap 6 MMOL/L (8-16) L 01/20/19 06:20 BUN 10.6 mg/dL (7-18) 01/20/19 06:20 Creatinine 0.5 mg/dL (0.55-1.3) L 01/20/19 06:20 Est GFR (CKD-EPI)AfAm 130.79 01/20/19 06:20 Est GFR (CKD-EPI)NonAf 112.85 01/20/19 06:20 Random Glucose 95 mg/dL (74-106) 01/20/19 06:20 Lactic Acid 0.9 mmol/L (0.4-2.0) 01/17/19 23:26 Calcium 9.0 mg/dL (8.5-10.1) 01/20/19 06:20 Phosphorus 3.4 mg/dL (2.5-4.9) 01/20/19 06:20 Magnesium 2.4 mg/dL (1.8-2.4) 01/20/19 06:20 Total Bilirubin 0.3 mg/dL (0.2-1) 01/20/19 06:20 AST 70 U/L (15-37) H 01/20/19 06:20 ALT 215 U/L (13-61) H 01/20/19 06:20 Alkaline Phosphatase 222 U/L (45-117) H 01/20/19 06:20 Troponin I < 0.02 ng/ml (0.00-0.05) 01/18/19 06:15 C-Reactive Protein 9.5 MG/DL (0.00-0.3) H 01/18/19 06:15 B-Natriuretic Peptide 16.6 pg/ml (5-125) 01/18/19 06:15 Total Protein 6.9 g/dl (6.4-8.2) 01/20/19 06:20 Albumin 3.0 g/dl (3.4-5.0) L 01/20/19 06:20 Lipase 114 U/L (73-393) 01/17/19 23:26 TSH 7.24 uIU/ml (0.358-3.74) H 01/18/19 06:15 Free T4 1.04 ng/dl (0.76-1.46) 01/19/19 06:25 Acetaminophen 2.3 ug/mL (10-30) L 01/17/19 23:26 Active Medications Current Medications Apixaban (Eliquis -) 10 mg PO BID KRISTI Stop: 01/26/19 23:59 Last Admin: 01/20/19 11:43 Dose: 10 mg Lactated Ringer's (Lactated Ringers Solution) 1,000 mls @ 75 mls/hr IV ASDIR KRISTI Last Admin: 01/20/19 08:24 Dose: 75 mls/hr Cefepime HCl 1 gm/ Dextrose 100 mls @ 200 mls/hr IVPB Q8H-IV KRISTI; Protocol Last Admin: 01/20/19 10:42 Dose: 200 mls/hr ASSESSMENT/PLAN: 48 y.o. PMH abd aneurysm, fibroids, HLD. Post op day # 9 s/p ZENA + b/l saplingectomy (d/c'd 01/13/19) who presented with generalized fatigue, nausea, chills and fevers found to have PE within RLL on chest CTA. #RLL PE -CTA confirmed -LVX held; Eliquis 10BID started today, to continue for 7 days. Start 5mg BID after. -SOB improving -Normal echo #Fluid collection L adnexa & midpelvis -Leukocytosis persists (11.5 today) -C/w Cefepime, day #3 abx (started 01/18/19) -No drainage as per IR -ID (Dr. Banegas), Medication Specialist on board #Fatty liver -Transaminitis improving -Hepatitis workup in progress #FEN -LR -Trend BMP -Diabetic diet #DVT PPX -Eliquis Visit type - Emergency Visit Emergency Visit: No - New Patient This patient is new to me today: No - Critical Care Critical Care patient: No ATTENDING PHYSICIAN STATEMENT I saw and evaluated the patient. I reviewed the resident's note and discussed the case with the resident. I agree with the resident's findings and plan as documented. SUBJECTIVE: OBJECTIVE: ASSESSMENT AND PLAN:
--- NOTE | 2019-01-20 18:33 | PN ---
Progress Note, Physician History of Present Illness: Pt seen and examined. Events noted. She reports feeling better with less abd pain but has developed a rash on RT and Lt side of her abdomen. Tmax 99.8F. - Current Medication List Current Medications: Active Medications Apixaban (Eliquis -) 10 mg PO BID KRISTI Stop: 01/26/19 23:59 Last Admin: 01/20/19 11:43 Dose: 10 mg Lactated Ringer's (Lactated Ringers Solution) 1,000 mls @ 75 mls/hr IV ASDIR KRISTI Last Admin: 01/20/19 08:24 Dose: 75 mls/hr Cefepime HCl 1 gm/ Dextrose 100 mls @ 200 mls/hr IVPB Q8H-IV KRISTI; Protocol Last Admin: 01/20/19 18:16 Dose: 200 mls/hr - Objective Vital Signs: Vital Signs Temperature 99.1 F 01/20/19 13:15 Pulse Rate 83 01/20/19 13:15 Respiratory Rate 20 01/20/19 13:15 Blood Pressure 116/68 01/20/19 13:15 O2 Sat by Pulse Oximetry (%) 97 01/19/19 21:00 Constitutional: Yes: No Distress, Calm Eyes: Yes: Conjunctiva Clear Cardiovascular: Yes: Regular Rate and Rhythm Respiratory: Yes: Regular Gastrointestinal: Yes: Normal Bowel Sounds, Soft, Tenderness (mostly in LLQ) Genitourinary: Yes: WNL Integumentary: Yes: Rash (Rt and Lt side erythematous rash, no pustules/vesicles /necrosis) Wound/Incision: Yes: Clean/Dry Neurological: Yes: Alert, Oriented Labs: CBC, BMP 01/20/19 06:20 01/20/19 06:20 INR, PTT INR 1.12 (0.83-1.09) H 01/20/19 06:20 Microbiology 01/17/19 23:26 Blood - Peripheral Venous Blood Culture - Preliminary NO GROWTH OBTAINED AFTER 48 HOURS, INCUBATION TO CONTINUE FOR 3 DAYS. 01/17/19 23:26 Blood - Peripheral Venous Blood Culture - Preliminary NO GROWTH OBTAINED AFTER 48 HOURS, INCUBATION TO CONTINUE FOR 3 DAYS. - ....Imaging Cat Scan: Report Reviewed Problem List - Problems (1) Postoperative fever Code(s): R50.82 - POSTPROCEDURAL FEVER (2) Endometrial polyp Code(s): N84.0 - POLYP OF CORPUS UTERI (3) Status post abdominal hysterectomy Code(s): Z90.710 - ACQUIRED ABSENCE OF BOTH CERVIX AND UTERUS Assessment/Plan Fever s/p ZENA Pelvic/adnexal fluid collection/Possible abscess PE Rash -- pt with new rash on abdomen, possible allergy to Cefepime (also previously on Zosyn/Vancomycin) -- d/c Cefepime, will start Aztreonam/Clindamycin -- continue monitor temps and for resolution of rash pt currently with less abdominal pain, comfortable
[2019-01-20] MEDS ORDERED: diphenhydrAMINE HCL 25 MG CAPSULE (FP) PO PRN (20:22)
--- NOTE | 2019-01-20 21:00 | PN ---
Progress Note (short form) - Note Progress Note: 48F with pmh of HLD, abdominal aneurysm, fibroids, status post abdominal hysterectomy / Bilateral salpingectomy on January 10, presents to ER c/o fever, SOB and cough. Patient was discharged on January 13 in stable condition. Patient seen and evaluated, she's lying comfortably in bed. She's afebrile and vitals are stable. WBC : 11.0 PE : ABD : soft, no distention, + skin rash. mild tenderness above the incision upon palpation, no erythema. Incision is healing, no drainage of purulent nor serosanguinous discharge. ASS / Plan : Pulmonary embolism Pelvic collection Status post abdominal hysterectomy Continue anticoagulant Continue antibiotic
[2019-01-20] MEDS ORDERED: ACETAMINOPHEN WITH CODEINE 300MG/30MG TABLET PO ONE (21:20)
[2019-01-20] MEDS ORDERED: ACETAMINOPHEN 325 MG TABLET (FP) PO PRN (21:45)
[2019-01-20] MEDS ORDERED: ACETAMINOPHEN 325 MG TABLET (FP) PO ONE (22:00)
[2019-01-21] MEDS ORDERED: PT OWN MED DRAWER 7, Y5N ONE ×5 (00:55→17:32)
[2019-01-21] MEDS: CLINDAMYCIN 600MG PREMIX IVPB 600 MG/50 ML BAG IVPB SCH ×3 (01:00→17:52)
[2019-01-21] MEDS: LACTATED RINGERS SOLUTION 1,000 ML IV SCH (01:00)
[2019-01-21] MEDS: AZTREONAM 2 GM in DEXTROSE 5%-WATER 100 ML IVPB SCH ×3 (01:41→17:52)
[2019-01-21 06:41] LABS: BASO % 0.1 % (0-2.0); HEMATOCRIT 34.8 % (32.4-45.2); HEMOGLOBIN 11.9 GM/dL (10.7-15.3); LYMPH % 17.2 % (8-40); MCH 28.5 pg (25.7-33.7); MCHC 34.2 g/dl (32.0-36.0); MEAN CELL VOLUME 83.3 fl (80-96); MEAN PLT VOLUME 7.9 fl (7.5-11.1); MONO % 6.8 % (3.8-10.2); NEUT % 73.9 % (42.8-82.8); PLATELET COUNT 404 K/MM3 (134-434); RBC 4.18 M/mm3 (3.60-5.2); WHITE BLOOD COUNT 9.5 K/mm3 (4.0-10.0)
[2019-01-21 07:00] LABS: BILIRUBIN,TOTAL 0.3 mg/dL (0.2-1); BLOOD UREA NITROGEN 12.5 mg/dL (7-18); CALCIUM 9.1 mg/dL (8.5-10.1); CREATININE 0.6 mg/dL (0.55-1.3); MAGNESIUM 2.5 mg/dL (1.8-2.4); PHOSPHOROUS 3.7 mg/dL (2.5-4.9); POTASSIUM 4.1 mmol/L (3.5-5.1); TOT PROT 6.8 g/dl (6.4-8.2)
[2019-01-21] MEDS: APIXABAN 5 MG TABLET PO SCH ×2 (09:11→21:50)
--- NOTE | 2019-01-21 10:37 | PN ---
Teaching Attending Note Name of Resident: Keyanna Hunter ATTENDING PHYSICIAN STATEMENT I saw and evaluated the patient. I reviewed the resident's note and discussed the case with the resident. I agree with the resident's findings and plan as documented. SUBJECTIVE: Feeling better - pain improving. No CP/palpitations/SOB. No PV discharge/diarrhea. OBJECTIVE: Fever overnight - Tmax 100.8. Hemodynamically Stable Last Vital Signs Temp Pulse Resp BP Pulse Ox 98.8 F 81 20 115/59 L 95 01/21/19 06:00 01/21/19 06:00 01/21/19 06:00 01/21/19 06:00 01/20/19 20:56 Heart - S1, S2, soft SM Lungs - clear to auscultation. Abdomen - high BMI, bilateral lower quadrant abdominal tenderness improving, suprapubic surgical incision site clean, with steri-strips. Rash on lower abdomen improving, no cellulitis. Extremities - no calf tenderness. Laboratory Results - last 24 hr 01/19/19 01/20/19 01/21/19 06:15 06:20 05:48 WBC 11.0 H 9.5 RBC 4.09 4.18 Hgb 11.5 11.9 Hct 34.8 34.8 MCV 85.1 83.3 MCH 28.1 28.5 MCHC 33.0 34.2 RDW 14.4 14.0 Plt Count 390 404 MPV 9.4 D 7.9 D Absolute Neuts (auto) 8.1 H 7.0 Neutrophils % 74.3 73.9 Lymphocytes % 16.9 17.2 Monocytes % 6.6 6.8 Eosinophils % 1.5 2.0 Basophils % 0.7 D 0.1 Nucleated RBC % 0 0 Sodium Potassium Chloride Carbon Dioxide Anion Gap BUN Creatinine Est GFR (CKD-EPI)AfAm Est GFR (CKD-EPI)NonAf Random Glucose Calcium Phosphorus Magnesium Total Bilirubin AST ALT Alkaline Phosphatase Total Protein Albumin Hep A IgM Ab Confirm Negative Hep Bs Antigen Negative Hep B Core IgM Ab Negative Hepatitis C Ab (EIA) <0.1 01/21/19 05:48 WBC RBC Hgb Hct MCV MCH MCHC RDW Plt Count MPV Absolute Neuts (auto) Neutrophils % Lymphocytes % Monocytes % Eosinophils % Basophils % Nucleated RBC % Sodium 139 Potassium 4.1 Chloride 106 Carbon Dioxide 27 Anion Gap 6 L BUN 12.5 Creatinine 0.6 Est GFR (CKD-EPI)AfAm 123.18 Est GFR (CKD-EPI)NonAf 106.28 Random Glucose 105 Calcium 9.1 Phosphorus 3.7 Magnesium 2.5 H Total Bilirubin 0.3 AST 45 H ALT 163 H Alkaline Phosphatase 219 H Total Protein 6.8 Albumin 3.0 L Hep A IgM Ab Confirm Hep Bs Antigen Hep B Core IgM Ab Hepatitis C Ab (EIA) Current Medications Generic Name Dose Route Start Last Admin Trade Name Freq PRN Reason Stop Dose Admin Apixaban 10 mg 01/20/19 11:30 01/21/19 09:11 Eliquis - PO 01/26/19 23:59 10 mg BID KRISTI Administration Lactated Ringer's 1,000 mls @ 75 mls/hr 01/18/19 04:15 01/21/19 01:00 Lactated Ringers Solution IV 75 mls/hr ASDIR KRISTI Administration Aztreonam 2 gm/ Dextrose 100 mls @ 100 mls/hr 01/21/19 02:00 01/21/19 01:41 IVPB 100 mls/hr Q8H-IV KRISTI Administration Protocol Clindamycin Phosphate 600 mg in 50 mls @ 100 mls/hr 01/21/19 02:00 01/21/19 09:10 Cleocin 600 Mg Premix Ivpb - IVPB 100 mls/hr Q8H-IV KRISTI Administration Protocol ASSESSMENT AND PLAN: 48 year old female with history of HLD, AAA, Fibroid Uterus, POD 11 s/p ZENA presented with fevers, chills, malaise, found to have intra-abdominal fluid collection and RLL PE. Abdominal US - fatty liver CT A/P - Heterogenous fluid collection, possible RLL pulmonary embolus CTA Chest - RLL PE. 1. Acute PE, post-op Hemodynamically Stable, stable cardiopulmonary status, no CP/dyspnea/hemoptysis Echo - no R heart strain Started on Eliquis. 2. Intra-abdominal/pelvic fluid collection post-op s/p ZNEA, likely post-op abscess Febrile on presentation, still spiking overnight to 100.8. Given Zosyn/Vanco in ED - changed to Cefepime by ID 01/19 - Cefepime discontinued 01/20 due to rash - now on Aztreonam/Clindamycin. Rash improving. Discussed with IR - abscess not amenable to IR guided drainage. For conservative management with Abx as per ID. Findings, concerns, suspicions discussed with Dr. Nam (Gynecology). 3. Transaminitis - etiology unclear, improving. Abdominal US - fatty liver, no acute cholecystitis. No portal/hepatic venous thrombosis on vascular US. Hepatitis panel negative. Will monitor. DVT Px - on Eliquis.
--- NOTE | 2019-01-21 12:09 | PN ---
Progress Note, Physician History of Present Illness: Pt states she is feeling better. Less abd pain. 100.8F last night but afebrile since. Rash resolving, pruritis less. No current SOB/CP or any other complaints. - Current Medication List Current Medications: Active Medications Apixaban (Eliquis -) 10 mg PO BID KRISTI Stop: 01/26/19 23:59 Last Admin: 01/21/19 09:11 Dose: 10 mg Aztreonam 2 gm/ Dextrose 100 mls @ 100 mls/hr IVPB Q8H-IV KRISTI; Protocol Last Admin: 01/21/19 10:50 Dose: 100 mls/hr Clindamycin Phosphate (Cleocin 600 Mg Premix Ivpb -) 600 mg in 50 mls @ 100 mls /hr IVPB Q8H-IV KRISTI; Protocol Last Admin: 01/21/19 09:10 Dose: 100 mls/hr - Objective Vital Signs: Vital Signs Temperature 98.8 F 01/21/19 06:00 Pulse Rate 81 01/21/19 06:00 Respiratory Rate 20 01/21/19 09:00 Blood Pressure 115/59 L 01/21/19 06:00 O2 Sat by Pulse Oximetry (%) 95 01/21/19 09:00 Constitutional: Yes: No Distress, Calm Cardiovascular: Yes: Regular Rate and Rhythm Respiratory: Yes: Regular Gastrointestinal: Yes: Normal Bowel Sounds, Soft, Tenderness (with palpation in LLQ, no distension) Genitourinary: Yes: WNL Extremities: Yes: WNL Integumentary: Yes: Rash (rash on abdomen resolving) Labs: CBC, BMP 01/21/19 05:48 01/21/19 05:48 INR, PTT INR 1.12 (0.83-1.09) H 01/20/19 06:20 Microbiology 01/17/19 23:26 Blood - Peripheral Venous Blood Culture - Preliminary NO GROWTH OBTAINED AFTER 72 HOURS, INCUBATION TO CONTINUE FOR 2 DAYS. 01/17/19 23:26 Blood - Peripheral Venous Blood Culture - Preliminary NO GROWTH OBTAINED AFTER 72 HOURS, INCUBATION TO CONTINUE FOR 2 DAYS. Problem List - Problems (1) Postoperative fever Code(s): R50.82 - POSTPROCEDURAL FEVER (2) Endometrial polyp Code(s): N84.0 - POLYP OF CORPUS UTERI (3) Status post abdominal hysterectomy Code(s): Z90.710 - ACQUIRED ABSENCE OF BOTH CERVIX AND UTERUS Assessment/Plan Fever s/p ZENA Pelvic/adnexal fluid collection/Possible abscess PE Rash -- continue Aztreonam and clindamycin -- febrile last night, afebrile since -- rash resolving after change in antibiotics -- if fevers persist suggest repeat CT -- wbc now normal continue monitor closely
--- NOTE | 2019-01-21 14:08 | PN ---
Physical Exam: SUBJECTIVE: Patient seen and examined. 100.8 fever last night, currently afebrile. Pt developed abdominal rash reaction likely d/t abx. Cefepime d/c'd, started on Aztreonam & Clinda. Rash has since resolved. Will continue to monitor. OBJECTIVE: Vital Signs Period Temp Pulse Resp BP Sys/Finch Pulse Ox Last 24 Hr 97.7 F-100.8 F 67-90 18-20 110-122/59-75 95-95 GENERAL: The patient is awake, alert, and fully oriented, in no acute distress. LUNGS: Breath sounds equal, clear to auscultation bilaterally, no wheezes, no crackles, no accessory muscle use. HEART: Regular rate and rhythm, S1, S2 without murmur, rub or gallop. ABDOMEN: Faint macular rash present across lower abdomen. Mild LLQ abd pain on palpation, improving since last exam. Suprapubic incision site C/D/I. Soft, nondistended, normoactive bowel sounds. EXTREMITIES: 2+ pulses, warm, well-perfused, no edema. Laboratory Results - last 24 hr Laboratory Last Values WBC 9.5 K/mm3 (4.0-10.0) 01/21/19 05:48 RBC 4.18 M/mm3 (3.60-5.2) 01/21/19 05:48 Hgb 11.9 GM/dL (10.7-15.3) 01/21/19 05:48 Hct 34.8 % (32.4-45.2) 01/21/19 05:48 MCV 83.3 fl (80-96) 01/21/19 05:48 MCH 28.5 pg (25.7-33.7) 01/21/19 05:48 MCHC 34.2 g/dl (32.0-36.0) 01/21/19 05:48 RDW 14.0 % (11.6-15.6) 01/21/19 05:48 Plt Count 404 K/MM3 (134-434) 01/21/19 05:48 MPV 7.9 fl (7.5-11.1) D 01/21/19 05:48 Absolute Neuts (auto) 7.0 K/mm3 (1.5-8.0) 01/21/19 05:48 Neutrophils % 73.9 % (42.8-82.8) 01/21/19 05:48 Lymphocytes % 17.2 % (8-40) 01/21/19 05:48 Monocytes % 6.8 % (3.8-10.2) 01/21/19 05:48 Eosinophils % 2.0 % (0-4.5) 01/21/19 05:48 Basophils % 0.1 % (0-2.0) 01/21/19 05:48 Nucleated RBC % 0 % (0-0) 01/21/19 05:48 ESR 74 mm/hr (0-30) H 01/18/19 06:15 PT with INR 13.20 SEC (9.7-13.0) H 01/20/19 06:20 INR 1.12 (0.83-1.09) H 01/20/19 06:20 PTT (Actin FS) 49.9 SECONDS (25.2-36.5) H 01/20/19 04:15 Sodium 139 mmol/L (136-145) 01/21/19 05:48 Potassium 4.1 mmol/L (3.5-5.1) 01/21/19 05:48 Chloride 106 mmol/L (98-107) 01/21/19 05:48 Carbon Dioxide 27 mmol/L (21-32) 01/21/19 05:48 Anion Gap 6 MMOL/L (8-16) L 01/21/19 05:48 BUN 12.5 mg/dL (7-18) 01/21/19 05:48 Creatinine 0.6 mg/dL (0.55-1.3) 01/21/19 05:48 Est GFR (CKD-EPI)AfAm 123.18 01/21/19 05:48 Est GFR (CKD-EPI)NonAf 106.28 01/21/19 05:48 Random Glucose 105 mg/dL (74-106) 01/21/19 05:48 Lactic Acid 0.9 mmol/L (0.4-2.0) 01/17/19 23:26 Calcium 9.1 mg/dL (8.5-10.1) 01/21/19 05:48 Phosphorus 3.7 mg/dL (2.5-4.9) 01/21/19 05:48 Magnesium 2.5 mg/dL (1.8-2.4) H 01/21/19 05:48 Total Bilirubin 0.3 mg/dL (0.2-1) 01/21/19 05:48 AST 45 U/L (15-37) H 01/21/19 05:48 ALT 163 U/L (13-61) H 01/21/19 05:48 Alkaline Phosphatase 219 U/L (45-117) H 01/21/19 05:48 Troponin I < 0.02 ng/ml (0.00-0.05) 01/18/19 06:15 C-Reactive Protein 9.5 MG/DL (0.00-0.3) H 01/18/19 06:15 B-Natriuretic Peptide 16.6 pg/ml (5-125) 01/18/19 06:15 Total Protein 6.8 g/dl (6.4-8.2) 01/21/19 05:48 Albumin 3.0 g/dl (3.4-5.0) L 01/21/19 05:48 Lipase 114 U/L (73-393) 01/17/19 23:26 TSH 7.24 uIU/ml (0.358-3.74) H 01/18/19 06:15 Free T4 1.04 ng/dl (0.76-1.46) 01/19/19 06:25 Stool Occult Blood Negative (NEGATIVE) 01/21/19 12:00 Acetaminophen 2.3 ug/mL (10-30) L 01/17/19 23:26 Hep A IgM Ab Confirm Negative (Negative) 01/19/19 06:15 Hep Bs Antigen Negative (Negative) 01/19/19 06:15 Hep B Core IgM Ab Negative (Negative) 01/19/19 06:15 Hepatitis C Ab (EIA) <0.1 s/co ratio (0.0-0.9) 01/19/19 06:15 Active Medications Current Medications Apixaban (Eliquis -) 10 mg PO BID KRISTI Stop: 01/26/19 23:59 Last Admin: 01/21/19 09:11 Dose: 10 mg Aztreonam 2 gm/ Dextrose 100 mls @ 100 mls/hr IVPB Q8H-IV KRISTI; Protocol Last Admin: 01/21/19 10:50 Dose: 100 mls/hr Clindamycin Phosphate (Cleocin 600 Mg Premix Ivpb -) 600 mg in 50 mls @ 100 mls /hr IVPB Q8H-IV KRISTI; Protocol Last Admin: 01/21/19 09:10 Dose: 100 mls/hr ASSESSMENT/PLAN: 48 y.o. F PMH abd aneurysm, fibroids, HLD, post op day +10 s/p ZENA w/ salpingectomy who presented w/ generalized fatigue, nausea & chills found to have PE within RLL on chest CTA and abdominal fluid collection on CT abdomen. #Left adnexa & midpelvis fluid collection -Leukocytosis resolved -Abx Aztreonam 2g IV q8 & clindamycin 600mg IV q8 -Currently afebrile; monitor for fevers -Supervisor [employer] following -No intervention by IR at this time #RLL PE -Eliquis 10mg PO BID -SOB improved #Transaminits -Abd US: Fatty liver -LFTs downtrending -Hep panel neg #FEN -no standing fluids -trend bmp -diabetic diet #DVT ppx -Eliquis Visit type - Emergency Visit Emergency Visit: No - New Patient This patient is new to me today: No - Critical Care Critical Care patient: No ATTENDING PHYSICIAN STATEMENT I saw and evaluated the patient. I reviewed the resident's note and discussed the case with the resident. I agree with the resident's findings and plan as documented. SUBJECTIVE: OBJECTIVE: ASSESSMENT AND PLAN:
--- NOTE | 2019-01-21 19:59 | PN ---
Progress Note, Physician History of Present Illness: Patient seen and evaluated, She's lying in bed c/o feeling hot. Temperature is slightly elevated. There is no evidence of Leukocytosis. She thinks that her elevated body temperature is related to her recent abdominal rash. - Current Medication List Current Medications: Active Medications Apixaban (Eliquis -) 10 mg PO BID KRISTI Stop: 01/26/19 23:59 Last Admin: 01/21/19 09:11 Dose: 10 mg Aztreonam 2 gm/ Dextrose 100 mls @ 100 mls/hr IVPB Q8H-IV KRISTI; Protocol Last Admin: 01/21/19 17:52 Dose: 100 mls/hr Clindamycin Phosphate (Cleocin 600 Mg Premix Ivpb -) 600 mg in 50 mls @ 100 mls /hr IVPB Q8H-IV KRISTI; Protocol Last Admin: 01/21/19 17:52 Dose: 100 mls/hr - Objective Vital Signs: Vital Signs Temperature 98.8 F 01/21/19 12:00 Pulse Rate 88 01/21/19 12:00 Respiratory Rate 21 H 01/21/19 12:00 Blood Pressure 129/71 01/21/19 12:00 O2 Sat by Pulse Oximetry (%) 95 01/21/19 09:00 Constitutional: No: No Distress Eyes: Yes: Conjunctiva Clear Neck: Yes: Supple Cardiovascular: Yes: Regular Rate and Rhythm Gastrointestinal: Yes: Normal Bowel Sounds, Tenderness (Mild tenderness on the left lower quadrant) Extremities: No: Calf Tenderness Wound/Incision: Yes: Open to air, Other (No signs of infection). No: Bleeding Neurological: Yes: Alert, Oriented ...Motor Strength: WNL Psychiatric: Yes: Alert, Oriented Labs: CBC, BMP 01/21/19 05:48 01/21/19 05:48 INR, PTT INR 1.12 (0.83-1.09) H 01/20/19 06:20 Assessment/Plan Status post hysterectomy Pulmonary embolism Pelvic collection Continue Clindamycin Possible repeat cat scan on Wednesday
[2019-01-21] MEDS ORDERED: diphenhydrAMINE HCL 25 MG CAPSULE (FP) PO ONE (22:16)
[2019-01-21] MEDS ORDERED: ACETAMINOPHEN 325 MG TABLET (FP) PO ONE (22:17)
[2019-01-22] MEDS: CLINDAMYCIN 600MG PREMIX IVPB 600 MG/50 ML BAG IVPB SCH ×3 (01:12→17:18)
[2019-01-22] MEDS: AZTREONAM 2 GM in DEXTROSE 5%-WATER 100 ML IVPB SCH ×3 (01:51→18:00)
[2019-01-22 08:05] LABS: ALBUMIN 3.2 g/dl (3.4-5.0); BILIRUBIN,TOTAL 0.4 mg/dL (0.2-1); BLOOD UREA NITROGEN 13.3 mg/dL (7-18); CREATININE 0.6 mg/dL (0.55-1.3); MAGNESIUM 2.6 mg/dL (1.8-2.4); PHOSPHOROUS 3.9 mg/dL (2.5-4.9); POTASSIUM 3.9 mmol/L (3.5-5.1); TOT PROT 7.3 g/dl (6.4-8.2)
[2019-01-22 09:13] LABS: BASO % 0.2 % (0-2.0); EOS % 1.4 % (0-4.5); HEMATOCRIT 35.7 % (32.4-45.2); HEMOGLOBIN 11.9 GM/dL (10.7-15.3); LYMPH % 14.1 % (8-40); MCH 28.1 pg (25.7-33.7); MCHC 33.5 g/dl (32.0-36.0); MEAN CELL VOLUME 83.9 fl (80-96); MEAN PLT VOLUME 8.1 fl (7.5-11.1); MONO % 6.9 % (3.8-10.2); NEUT % 77.4 % (42.8-82.8); PLATELET COUNT 449 K/MM3 (134-434); RBC 4.25 M/mm3 (3.60-5.2); WHITE BLOOD COUNT 11.2 K/mm3 (4.0-10.0)
[2019-01-22] MEDS: APIXABAN 5 MG TABLET PO SCH (10:02)
[2019-01-22 12:08] LABS: ANISOCYTOSIS 1+; MACROCYTOSIS 0; OVALOCYTE 1+; PLATELET ESTIMATE NORMAL
--- NOTE | 2019-01-22 13:17 | PN ---
Progress Note, Physician History of Present Illness: Pt states she feels well. No significant abd pain. Rash resolved but low grade fevers persist. Tmax 100.4F last night. Repeat CT done, results pending. Pt has no other complaints. - Current Medication List Current Medications: Active Medications Apixaban (Eliquis -) 10 mg PO BID KRISTI Stop: 01/26/19 23:59 Last Admin: 01/22/19 10:02 Dose: 10 mg Aztreonam 2 gm/ Dextrose 100 mls @ 100 mls/hr IVPB Q8H-IV KRISTI; Protocol Last Admin: 01/22/19 10:02 Dose: 100 mls/hr Clindamycin Phosphate (Cleocin 600 Mg Premix Ivpb -) 600 mg in 50 mls @ 100 mls /hr IVPB Q8H-IV KRISTI; Protocol Last Admin: 01/22/19 09:10 Dose: 100 mls/hr - Objective Vital Signs: Vital Signs Temperature 98.4 F 01/22/19 11:00 Pulse Rate 73 01/22/19 11:00 Respiratory Rate 18 01/22/19 11:00 Blood Pressure 118/70 01/22/19 11:00 O2 Sat by Pulse Oximetry (%) 96 01/22/19 09:00 Constitutional: Yes: No Distress, Calm Eyes: Yes: Conjunctiva Clear Cardiovascular: Yes: Regular Rate and Rhythm Respiratory: Yes: CTA Bilaterally Gastrointestinal: Yes: Normal Bowel Sounds, Soft, Tenderness (minimal Lt lower abd with deep palpation) Genitourinary: Yes: WNL Extremities: Yes: WNL Integumentary: Yes: WNL Neurological: Yes: Alert, Oriented Labs: CBC, BMP 01/22/19 06:55 01/22/19 06:55 INR, PTT INR 1.12 (0.83-1.09) H 01/20/19 06:20 Microbiology 01/17/19 23:26 Blood - Peripheral Venous Blood Culture - Preliminary NO GROWTH OBTAINED AFTER 96 HOURS, INCUBATION TO CONTINUE FOR 1 DAYS. 01/17/19 23:26 Blood - Peripheral Venous Blood Culture - Preliminary NO GROWTH OBTAINED AFTER 96 HOURS, INCUBATION TO CONTINUE FOR 1 DAYS. - ....Imaging Cat Scan: Pending Problem List - Problems (1) Postoperative fever Code(s): R50.82 - POSTPROCEDURAL FEVER (2) Endometrial polyp Code(s): N84.0 - POLYP OF CORPUS UTERI (3) Status post abdominal hysterectomy Code(s): Z90.710 - ACQUIRED ABSENCE OF BOTH CERVIX AND UTERUS Assessment/Plan Fever s/p ZENA Pelvic/adnexal fluid collection/Possible abscess PE Rash - resolved -- continue Aztreonam and clindamycin -- febrile last night, afebrile today -- f/u repeat CT results -- monitor wbc/temp trend pt currently without distress
--- NOTE | 2019-01-22 13:25 | PN ---
Progress Note (short form) - Note Progress Note: SUBJECTIVE: Feeling well - pain improving. No CP/palpitations/SOB. No PV discharge/diarrhea. OBJECTIVE: Fever overnight again - Tmax 100.4. Hemodynamically Stable Last Vital Signs Temp Pulse Resp BP Pulse Ox 98.4 F 73 18 118/70 96 01/22/19 11:00 01/22/19 11:00 01/22/19 11:00 01/22/19 11:00 01/22/19 09:00 Heart - S1, S2, soft SM Lungs - clear to auscultation. Abdomen - high BMI, bilateral lower quadrant abdominal tenderness present with some improvement. Suprapubic surgical incision site clean, with steri-strips. Rash on lower abdomen improving, no cellulitis. Extremities - no calf tenderness. Laboratory Results - last 24 hr 01/21/19 01/22/19 01/22/19 17:20 06:55 06:55 WBC 11.2 H RBC 4.25 Hgb 11.9 Hct 35.7 MCV 83.9 MCH 28.1 MCHC 33.5 RDW 14.0 Plt Count 449 H MPV 8.1 Absolute Neuts (auto) 8.7 H Neutrophils % 77.4 Neutrophils % (Manual) 72.0 Band Neutrophils % 5.0 Lymphocytes % 14.1 Lymphocytes % (Manual) 9.0 Monocytes % 6.9 Monocytes % (Manual) 13 H Eosinophils % 1.4 Eosinophils % (Manual) 1.0 Basophils % 0.2 Basophils % (Manual) 0.0 Myelocytes % (Man) 0 Promyelocytes % (Man) 0 Blast Cells % (Manual) 0 Nucleated RBC % 0 Metamyelocytes 0 Hypochromia 0 Platelet Estimate Normal Platelet Comment Present Polychromasia 1+ Poikilocytosis 1+ Anisocytosis 1+ Microcytosis 1+ Macrocytosis 0 Ovalocytes 1+ Stomatocytes 1+ PTT (Actin FS) 29.2 38.2 H Sodium Potassium Chloride Carbon Dioxide Anion Gap BUN Creatinine Est GFR (CKD-EPI)AfAm Est GFR (CKD-EPI)NonAf Random Glucose Calcium Phosphorus Magnesium Total Bilirubin AST ALT Alkaline Phosphatase Total Protein Albumin 01/22/19 06:55 WBC RBC Hgb Hct MCV MCH MCHC RDW Plt Count MPV Absolute Neuts (auto) Neutrophils % Neutrophils % (Manual) Band Neutrophils % Lymphocytes % Lymphocytes % (Manual) Monocytes % Monocytes % (Manual) Eosinophils % Eosinophils % (Manual) Basophils % Basophils % (Manual) Myelocytes % (Man) Promyelocytes % (Man) Blast Cells % (Manual) Nucleated RBC % Metamyelocytes Hypochromia Platelet Estimate Platelet Comment Polychromasia Poikilocytosis Anisocytosis Microcytosis Macrocytosis Ovalocytes Stomatocytes PTT (Actin FS) Sodium 139 Potassium 3.9 Chloride 106 Carbon Dioxide 26 Anion Gap 7 L BUN 13.3 Creatinine 0.6 Est GFR (CKD-EPI)AfAm 123.18 Est GFR (CKD-EPI)NonAf 106.28 Random Glucose 104 Calcium 9.0 Phosphorus 3.9 Magnesium 2.6 H Total Bilirubin 0.4 AST 35 ALT 140 H Alkaline Phosphatase 238 H Total Protein 7.3 Albumin 3.2 L Current Medications Generic Name Dose Route Start Last Admin Trade Name Freq PRN Reason Stop Dose Admin Apixaban 10 mg 01/20/19 11:30 01/22/19 10:02 Eliquis - PO 01/26/19 23:59 10 mg BID KRISTI Administration Aztreonam 2 gm/ Dextrose 100 mls @ 100 mls/hr 01/21/19 02:00 01/22/19 10:02 IVPB 100 mls/hr Q8H-IV KRISTI Administration Protocol Clindamycin Phosphate 600 mg in 50 mls @ 100 mls/hr 01/21/19 02:00 01/22/19 09:10 Cleocin 600 Mg Premix Ivpb - IVPB 100 mls/hr Q8H-IV KRISTI Administration Protocol ASSESSMENT AND PLAN: 48 year old female with history of HLD, AAA, Fibroid Uterus, POD 12 s/p ZENA presented with fevers, chills, malaise, found to have intra-abdominal fluid collection and RLL PE. Abdominal US - fatty liver CT A/P - Heterogenous fluid collection, possible RLL pulmonary embolus CTA Chest - RLL PE. 1. Acute PE, post-op Hemodynamically Stable, stable cardiopulmonary status, no CP/dyspnea/hemoptysis Echo - no R heart strain Started on Eliquis - will hold and cover with heparin drip pending possible surgical/procedural intervention. 2. Intra-abdominal/pelvic fluid collection post-op s/p ZENA, likely post-op abscess Febrile on presentation, still spiking overnight to 100.4. Given Zosyn/Vanco in ED - changed to Cefepime by ID 01/19 - Cefepime discontinued 01/20 due to rash - now on Aztreonam/Clindamycin. Rash improving. Discussed with IR Dr. Song - abscess not amenable to IR guided drainage. For conservative management with Abx as per ID. Given recurrent fever and elevation in WBC today, repeat CT A/P was done which shows persisting complex collection 5 x 3.7 x 3.8cm, possible abscess. Gynecology made aware of post-op findings of repeat CT A/P. Will consult Surgery. If no intervention planned and if ongoing fevers/ leukocytosis, will offer patient transfer to another center. 3. Transaminitis - etiology unclear. Abdominal US - fatty liver, no acute cholecystitis. No portal/hepatic venous thrombosis on vascular US. Hepatitis panel negative. Will monitor. DVT Px - on Eliquis. Visit type - Emergency Visit Emergency Visit: Yes ED Registration Date: 01/18/19 Care time: The patient presented to the Emergency Department on the above date and was hospitalized for further evaluation of their emergent condition. - New Patient This patient is new to me today: No - Critical Care Critical Care patient: No - Discharge Referral Referred to [facility] No
[2019-01-22] MEDS ORDERED: PT OWN MED DRAWER 7, Y5N ONE ×2 (17:34→20:45)
--- NOTE | 2019-01-22 18:33 | PN ---
Progress Note (short form) - Note Progress Note: 48F with pmh of HLD, abdominal aneurysm, fibroids, status post abdominal hysterectomy / Bilateral salpingectomy on January 10, presents to ER c/o fever, SOB and cough. Patient was discharged on January 13 in stable condition. Patient seen and evaluated, she's lying comfortably in bed. Doing well. She admits to great improvement from left lower quadrant pain. Repeat cat scan reviewed. PE : ABD : soft, no distention, skin rash improves with change of antibiotic. Tenderness above the incision only upon palpation, no erythema. Incision is healing, no drainage of purulent nor serosanguinous discharge. ASS / Plan : Pulmonary embolism Pelvic collection Status post abdominal hysterectomy Heparin drip pending Interventional Radiologist decision ( Case will be discussed with IR for possible drainage ) Continue antibiotic
--- NOTE | 2019-01-22 20:43 | CONSULT ---
Consult Consult Specialty:: General Surgery Referred by:: Gayle Nieves Reason for Consultation:: pelvic collection - ?abscess - History of Present Illness Chief Complaint: LLQ pain, nausea (prior to admission), cough/scratchy throat, fevers History of Present Illness: 48yo obese F had ZENA/BSO 01/10/19, was in hospital from Wednesday to Wednesday, then went home. On Wednesday, she noted a dry, itchy throat, and some dry coughing, as well as SOB while talking on the telephone. With the cough, she was holding her lower abdomen after recent surgery, and thought she felt something "tearing " and hurting in her LLQ abdominal wall, but her incision looked fine, and she thought maybe she pulled a muscle. The pain in the area later moved to the RLQ, and then went away from there. She still had some soreness in the LLQ, no dysuria, and was also having some fevers at home - as high as 100.4. She was constipated for a couple of days, then just sat on the toilet for a while until she finally had some small hard pieces come out. It wasn't until she also developed recurring chills and nausea (but no vomiting) that she finally came back to the hospital, still with some lower abdominal pain, more to the left side. Workup has included multiple imaging studies, including initial CTs showing a small pelvic left adnexal fluid collection and RLL pulmonary emboli. She did have fevers earlier in this admission, but temp curve has trended down to the 100s and below. The initial pelvic collection was felt to be inaccessible to IR. She has been on antibiotics per ID. She was started on therapeutic anticoagulation and has been on Eliquis, last dose this morning. Duplex was negative for DVT bilaterally. Echo was essentially normal. RUQ US showed no stones or cholecystitis. 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 Christian). Overall, she has been improving clinically, though slowly. She is tolerating diet, and ambulating regularly. Today, CT was repeated, as her WBC was 10 yesterday and 11.4 today. It shows the same pelvic collection, about the same size (few mm larger?), no obstruction, and postop changes in the abdominal wall without evidence of a hernia, rectus hematoma or cellulitis. Surgery was asked to assess. She is seen and examined in her room, sitting in a chair and ambulated to the bed for exam. She reports feeling better, with less pain and tenderness overall. She is passing the oral contrast in the form of loose stool, as she did 4d ago. She reports the rash she had (thought from abx previously) is fading , and she is not really using pain meds, but was doing fine with tylenol and ibuprofen. There is still a little pain in her left lower quadrant, though on exam it seems to be more in the abdominal wall than deep in her abdomen/pelvis. Her incision is healing well - she never had drainage or concerns about the site. She indicates the pain is above that level, but beneath the umbilical level. She still has a dry feeling in her throat, and occasional dry cough. No more chills. She denies dysuria, but did relate that she has had some pinkish mucoid discharge vaginally since yesterday, "just a little." - History Source History Provided By: Patient, Medical Record Limitations to Obtaining History: No Limitations - Past Medical History Cardio/Vascular: Yes: Aneurysm (AAA), Hyperlipdemia Gastrointestinal: Yes: Other (obesity) Renal/: Yes: Renal Calculi Reproductive: Yes: Fibroids ...LMP: 11/27/18 ...: No Musculoskeletal: Yes: Chronic low back pain Endocrine: Yes: Other ("prediabetes") - Past Surgical History Past Surgical History: Yes: Appendectomy, , Hysterectomy (01/10/19 (ZENA/ BSO)), Oopherectomy (bilateral w/hyst) - Alcohol/Substance Use Hx Alcohol Use: No History of Substance Use: reports: None - Smoking History Smoking history: Never smoked Have you smoked in the past 12 months: No - Social History ADL: Independent History of Recent Travel: No Home Medications - Allergies Allergies/Adverse Reactions: Allergies Allergy/AdvReac Type Severity Reaction Status Date / Time oxycodone [From Percocet] Allergy Verified 01/17/19 21:58 - Home Medications Home Medications: Ambulatory Orders Cyclobenzaprine HCl [Flexeril 10 mg] 10 mg PO PRN PRN 12/09/18 Diclofenac Potassium 50 mg PO PRN PRN 01/09/19 Ibuprofen [Motrin -] 600 mg PO Q4H PRN #60 tablet 01/13/19 Oxycodone HCl/Acetaminophen [Percocet 5-325 mg Tablet] 1 tab PO Q4H #20 tablet MDD 20 01/13/19 Home Medications (free text): never took oxycodone at home; had itching to it in hospital last admit, and developed macular rash at home after discharge;. 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 denies: Recent Change in Vision HENT: reports: Throat Pain (more "itchy/scratchy" "dry" than actually pain). denies: Difficult Swallowing, Nasal Congestion Neck: denies: Lumps, Pain on Movement, Stiffness, Swollen Glands, Tenderness Cardiovascular: reports: Palpitations ("funny heartbeats"). 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 denies: Diarrhea, Vomiting Genitourinary: reports: Other (some pink mucoid vaginal discharge started yesterday). denies: Burning, Dysuria, Vaginal Bleeding Musculoskeletal: reports: Back Pain (chronic). denies: Extremity Pain, Joint Pain, Muscle Pain Integumentary: reports: Incision (healing pfannenstiel), Rash (thought secondary to medication reactions (oxycodone from just before hospital d/c last time), abx from this admit -- getting better/fading) Neurological: denies: Dizziness, Headache, Unsteady Gait Psychiatric: denies: Anxiety, Depression Physical Exam Vital Signs: Vital Signs Temperature 97.9 F 01/22/19 18:05 Pulse Rate 81 01/22/19 18:05 Respiratory Rate 18 01/22/19 18:05 Blood Pressure 114/68 01/22/19 18:05 O2 Sat by Pulse Oximetry (%) 96 01/22/19 09:00 Vital Signs Period Temp Pulse Resp BP Sys/Finch Pulse Ox Last 24 Hr 97.8 F-100.4 F 67-101 18-20 107-123/63-73 96-97 Constitutional: Yes: No Distress, Calm, Obese Eyes: Yes: Conjunctiva Clear, EOM Intact, Other (glasses) HENT: Yes: Atraumatic, Normocephalic Neck: Yes: Supple, Trachea Midline Cardiovascular: Yes: Regular Rate and Rhythm Respiratory: Yes: Regular, CTA Bilaterally Gastrointestinal: Yes: Normal Bowel Sounds, Soft, Abdomen, Obese, Tenderness ( LLQ over abdominal wall, minimal tenderness at Pfannenstiel incision; no rebound or guarding - per pt, tenderness is improved and much less than previously), Other (healed RLQ scar; healing Pfannenstiel). No: Hernia (none appreciable), Tenderness, Epigastrium ...Rectal Exam: Yes: Deferred Renal/: No: CVA Tenderness - Left, CVA Tenderness - Right Musculoskeletal: No: Back Pain (no direct tenderness), Joint Stiffness, Joint Swelling Extremities: No: Calf Tenderness, Cool, Cyanosis Edema: Yes Edema: LLE: Trace, RLE: Trace Peripheral Pulses WNL: Yes Integumentary: Yes: Incision (healing Pfannenstiel - no erythema, no drainage, no open areas), Rash (fading macular rash on abdominal wall/trunk). No: Jaundice Wound/Incision: Yes: Clean/Dry, Well Approximated, Open to air. No: Reddened Neurological: Yes: Alert, Oriented. No: Unsteady Gait Psychiatric: Yes: Alert, Oriented Labs: CBC, BMP 01/22/19 06:55 01/22/19 06:55 CMP Sodium 139 mmol/L (136-145) 01/22/19 06:55 Potassium 3.9 mmol/L (3.5-5.1) 01/22/19 06:55 Chloride 106 mmol/L (98-107) 01/22/19 06:55 Carbon Dioxide 26 mmol/L (21-32) 01/22/19 06:55 Anion Gap 7 MMOL/L (8-16) L 01/22/19 06:55 BUN 13.3 mg/dL (7-18) 01/22/19 06:55 Creatinine 0.6 mg/dL (0.55-1.3) 01/22/19 06:55 Est GFR (CKD-EPI)AfAm 123.18 01/22/19 06:55 Est GFR (CKD-EPI)NonAf 106.28 01/22/19 06:55 Random Glucose 104 mg/dL (74-106) 01/22/19 06:55 Lactic Acid 0.9 mmol/L (0.4-2.0) 01/17/19 23:26 Calcium 9.0 mg/dL (8.5-10.1) 01/22/19 06:55 Phosphorus 3.9 mg/dL (2.5-4.9) 01/22/19 06:55 Magnesium 2.6 mg/dL (1.8-2.4) H 01/22/19 06:55 Total Bilirubin 0.4 mg/dL (0.2-1) 01/22/19 06:55 AST 35 U/L (15-37) 01/22/19 06:55 ALT 140 U/L (13-61) H 01/22/19 06:55 Alkaline Phosphatase 238 U/L (45-117) H 01/22/19 06:55 Troponin I < 0.02 ng/ml (0.00-0.05) 01/18/19 06:15 C-Reactive Protein 9.5 MG/DL (0.00-0.3) H 01/18/19 06:15 B-Natriuretic Peptide 16.6 pg/ml (5-125) 01/18/19 06:15 Total Protein 7.3 g/dl (6.4-8.2) 01/22/19 06:55 Albumin 3.2 g/dl (3.4-5.0) L 01/22/19 06:55 Lipase 114 U/L (73-393) 01/17/19 23:26 TSH 7.24 uIU/ml (0.358-3.74) H 01/18/19 06:15 Free T4 1.04 ng/dl (0.76-1.46) 01/19/19 06:25 INR, PTT INR 1.12 (0.83-1.09) H 01/20/19 06:20 Microbiology 01/17/19 23:26 Blood Culture - Preliminary Blood - Peripheral Venous NO GROWTH OBTAINED AFTER 96 HOURS, INCUBATION TO CONTINUE FOR 1 DAYS. 01/17/19 23:26 Blood Culture - Preliminary Blood - Peripheral Venous NO GROWTH OBTAINED AFTER 96 HOURS, INCUBATION TO CONTINUE FOR 1 DAYS. wbc up from 10: + bands (5), 77% neut, mildly elevated monos Imaging - Results Cat Scan: Report Reviewed, Image Reviewed (images from 01/18 and today reviewed - small L adnexal area fluid collection, similar on both, possibly slightly larger today but not much; ?if accessible to IR;), Other (chest CT noted from admission with RLL pulmonary emboli) Ultrasound: Report Reviewed (no DVT bilaterally) Other: Other (echo essentially normal) Problem List - Problems (1) LLQ pain Code(s): R10.32 - LEFT LOWER QUADRANT PAIN (2) Pelvic fluid collection Code(s): R18.8 - OTHER ASCITES (3) Fever presenting with conditions classified elsewhere Code(s): R50.81 - FEVER PRESENTING WITH CONDITIONS CLASSIFIED ELSEWHERE (4) Status post abdominal hysterectomy Code(s): Z90.710 - ACQUIRED ABSENCE OF BOTH CERVIX AND UTERUS (5) Other pulmonary embolism without acute cor pulmonale Code(s): I26.99 - OTHER PULMONARY EMBOLISM WITHOUT ACUTE COR PULMONALE Qualifiers: Chronicity: acute Qualified Code(s): I26.99 - Other pulmonary embolism without acute cor pulmonale (6) Class 1 obesity due to excess calories with body mass index (BMI) of 32.0 to 32.9 in adult Code(s): E66.09 - OTHER OBESITY DUE TO EXCESS CALORIES; Z68.32 - BODY MASS INDEX (BMI) 32.0-32.9, ADULT Qualifiers: Serious obesity comorbidity presence: without serious comorbidity Qualified Code(s): E66.09 - Other obesity due to excess calories; Z68.32 - Body mass index (BMI) 32.0-32.9, adult Assessment/Plan Patient with small pelvic/left adnexal fluid collection 1-2 weeks s/p ZENA/BSO - unclear if simple postop fluid or infected/abscess Also admitted with finding of acute RLL pulmonary emboli - started on anticoagulation, last dose Eliquis this morning Heparin drip planned to start tonight Fevers, SOB, cough prior to admission could all be related to PE itchy throat, fevers, cough, nausea could also be related to community acquired illness/virus leukocytosis and fevers in hospital could just as easily be related to PE as to an infection fever curve trending down patient's pain and tenderness improving steadily - per pt and with exam significant only for mild LLQ abdominal WALL tenderness, minimal incisional tenderness and no sig pelvic/low abdominal tenderness no evidence of incisional infection, rectus sheath hematoma or cellulitis in abdominal wall tolerating diet, ambulating regularly on antibiotics per ID agree with checking to see if fluid collection is accessible to aspiration or drainage by IR, with culture if fluid obtained they may need to wait another 24-48 hrs given timing of last Eliquis anyway if not, would tend to follow patient's clinical exam over the next few days, as she is improving will follow along with you EMPLOYEE WELLNESS/FITNESS COORDINATOR also following - if it is determined that fluid must be drained surgically, would discuss with Dr. Christian, as she could perform this laparoscopy may not be a preferred option this soon after open abdominal surgery trend labs NO need for DVT PROPHYLAXIS (SCDs), as she is getting therapeutic anticoagulation for PE consider hematology consultation - she will need to be followed for NOAC therapy as outpt, duration? Thank you for the opportunity to participate in the care of this patient. Discussed with Dr. Nieves (earlier)
[2019-01-22] MEDS ORDERED: HEPARIN NA (PORCINE) 5,000 UNITS/ML 1ML VIAL IVPUSH PRN (22:00)
[2019-01-22] MEDS: HEPARIN - 25,000 UNIT in SODIUM CHLORIDE 495 ML IV SCH (22:22)
[2019-01-23] MEDS ORDERED: PT OWN MED DRAWER 7, Y5N ONE ×3 (01:25→17:02)
[2019-01-23] MEDS: CLINDAMYCIN 600MG PREMIX IVPB 600 MG/50 ML BAG IVPB SCH ×3 (01:29→18:26)
[2019-01-23] MEDS: AZTREONAM 2 GM in DEXTROSE 5%-WATER 100 ML IVPB SCH ×3 (01:30→18:26)
[2019-01-23 09:14] LABS: BASO % 0.3 % (0-2.0); EOS % 1.5 % (0-4.5); HEMATOCRIT 37.8 % (32.4-45.2); HEMOGLOBIN 12.5 GM/dL (10.7-15.3); LYMPH % 17.5 % (8-40); MCH 27.9 pg (25.7-33.7); MEAN CELL VOLUME 84.5 fl (80-96); MONO % 7.4 % (3.8-10.2); NEUT % 73.3 % (42.8-82.8); PLATELET COUNT 524 K/MM3 (134-434); RBC 4.48 M/mm3 (3.60-5.2); RDW 14.1 % (11.6-15.6); WHITE BLOOD COUNT 12.2 K/mm3 (4.0-10.0)
[2019-01-23 09:34] LABS: ALBUMIN 3.4 g/dl (3.4-5.0); BILIRUBIN,TOTAL 0.3 mg/dL (0.2-1); BLOOD UREA NITROGEN 10.7 mg/dL (7-18); CALCIUM 9.5 mg/dL (8.5-10.1); CREATININE 0.6 mg/dL (0.55-1.3); POTASSIUM 3.9 mmol/L (3.5-5.1); TOT PROT 7.6 g/dl (6.4-8.2)
[2019-01-23] MEDS: HEPARIN NA (PORCINE) 5,000 UNITS/ML 1ML VIAL IVPUSH PRN ×2 (10:15→18:33)
--- NOTE | 2019-01-23 11:16 | PN ---
Teaching Attending Note Name of Resident: Keyanna uHnter ATTENDING PHYSICIAN STATEMENT I saw and evaluated the patient. I reviewed the resident's note and discussed the case with the resident. I agree with the resident's findings and plan as documented. SUBJECTIVE: Feeling well - pain improving. No CP/palpitations/SOB. Some pinkish PV discharge. No more fevers. OBJECTIVE: Afebrile overnight, Tmax 98. Hemodynamically Stable Last Vital Signs Temp Pulse Resp BP Pulse Ox 98 F 84 20 118/76 97 01/23/19 10:16 01/23/19 10:16 01/23/19 10:16 01/23/19 10:16 01/22/19 20:48 Heart - S1, S2, soft SM Lungs - clear to auscultation. Abdomen - high BMI, bilateral lower quadrant abdominal tenderness L > R, improving. Suprapubic surgical incision site clean, with steri-strips. Rash on lower abdomen improved, no cellulitis. Extremities - no calf tenderness. Laboratory Results - last 24 hr 01/22/19 01/23/19 01/23/19 06:55 08:40 08:40 WBC 12.2 H RBC 4.48 Hgb 12.5 Hct 37.8 MCV 84.5 MCH 27.9 MCHC 33.0 RDW 14.1 Plt Count 524 H MPV 8.0 Absolute Neuts (auto) 9.0 H Neutrophils % 73.3 Neutrophils % (Manual) 72.0 Band Neutrophils % 5.0 Lymphocytes % 17.5 D Lymphocytes % (Manual) 9.0 Monocytes % 7.4 Monocytes % (Manual) 13 H Eosinophils % 1.5 Eosinophils % (Manual) 1.0 Basophils % 0.3 Basophils % (Manual) 0.0 Myelocytes % (Man) 0 Promyelocytes % (Man) 0 Blast Cells % (Manual) 0 Nucleated RBC % 0 Metamyelocytes 0 Hypochromia 0 Platelet Estimate Normal Platelet Comment Present Polychromasia 1+ Poikilocytosis 1+ Anisocytosis 1+ Microcytosis 1+ Macrocytosis 0 Ovalocytes 1+ Stomatocytes 1+ PTT (Actin FS) 40.9 H Sodium Potassium Chloride Carbon Dioxide Anion Gap BUN Creatinine Est GFR (CKD-EPI)AfAm Est GFR (CKD-EPI)NonAf Random Glucose Calcium Total Bilirubin AST ALT Alkaline Phosphatase Total Protein Albumin 01/23/19 08:40 WBC RBC Hgb Hct MCV MCH MCHC RDW Plt Count MPV Absolute Neuts (auto) Neutrophils % Neutrophils % (Manual) Band Neutrophils % Lymphocytes % Lymphocytes % (Manual) Monocytes % Monocytes % (Manual) Eosinophils % Eosinophils % (Manual) Basophils % Basophils % (Manual) Myelocytes % (Man) Promyelocytes % (Man) Blast Cells % (Manual) Nucleated RBC % Metamyelocytes Hypochromia Platelet Estimate Platelet Comment Polychromasia Poikilocytosis Anisocytosis Microcytosis Macrocytosis Ovalocytes Stomatocytes PTT (Actin FS) Sodium 138 Potassium 3.9 Chloride 104 Carbon Dioxide 27 Anion Gap 8 BUN 10.7 Creatinine 0.6 Est GFR (CKD-EPI)AfAm 123.18 Est GFR (CKD-EPI)NonAf 106.28 Random Glucose 106 Calcium 9.5 Total Bilirubin 0.3 AST 32 ALT 122 H Alkaline Phosphatase 233 H Total Protein 7.6 Albumin 3.4 Current Medications Generic Name Dose Route Start Last Admin Trade Name Freq PRN Reason Stop Dose Admin Heparin Sodium (Porcine) 1,000 unit 01/22/19 22:00 01/23/19 10:15 Heparin - IVPUSH 1,000 unit PRN PRN Administration Heparin Heparin Sodium (Porcine) 5,000 unit 01/22/19 22:00 Heparin - IVPUSH PRN PRN Heparin Aztreonam 2 gm/ Dextrose 100 mls @ 100 mls/hr 01/21/19 02:00 01/23/19 10:07 IVPB 100 mls/hr Q8H-IV KRISTI Administration Protocol Clindamycin Phosphate 600 mg in 50 mls @ 100 mls/hr 01/21/19 02:00 01/23/19 10:07 Cleocin 600 Mg Premix Ivpb - IVPB 100 mls/hr Q8H-IV KRISTI Administration Protocol Heparin Sodium (Porcine) 25, 500 mls @ 20 mls/hr 01/22/19 22:00 01/23/19 10: 14 000 unit/ Sodium Chloride IV 1,100 unit/hr TITR KRISTI 22 mls/hr Titration Protocol 1,000 UNIT/HR ASSESSMENT AND PLAN: 48 year old female with history of HLD, AAA, Fibroid Uterus, POD 12 s/p ZENA presented with fevers, chills, malaise, found to have intra-abdominal fluid collection and RLL PE. Abdominal US - fatty liver CT A/P - Heterogenous fluid collection, possible RLL pulmonary embolus CTA Chest - RLL PE. 1. Acute PE, post-op Hemodynamically Stable, stable cardiopulmonary status, no CP/dyspnea/hemoptysis Echo - no R heart strain Started on Eliquis - now held and covered with heparin drip pending possible surgical/IR procedural intervention. 2. Intra-abdominal/pelvic fluid collection post-op s/p ZENA, likely post-op abscess Febrile on presentation, last fever almost 48 hours ago. Given Zosyn/Vanco in ED - changed to Cefepime by ID 01/19 - Cefepime discontinued 01/20 due to rash - now on Aztreonam/Clindamycin. Rash improved Discussed with IR Dr. Song - abscess not amenable to IR guided drainage. For conservative management with Abx as per ID. Given recurrent fever and elevation in WBC, repeat CT A/P was done 01/22 which shows persisting complex collection 5 x 3.7 x 3.8cm, possible abscess. Gynecology made aware of post-op findings of repeat CT A/P. Surgery consulted. Further management as per Cst/Surgery/IR/ID. 3. Transaminitis - etiology unclear. Abdominal US - fatty liver, no acute cholecystitis. No portal/hepatic venous thrombosis on vascular US. Hepatitis panel negative. Will monitor. DVT Px - on Heparin drip.
--- NOTE | 2019-01-23 12:07 | PN ---
Progress Note, Physician History of Present Illness: stable no complaints wbc marginally increased - Current Medication List Current Medications: Active Medications Heparin Sodium (Porcine) (Heparin -) 1,000 unit IVPUSH PRN PRN PRN Reason: Heparin Last Admin: 01/23/19 10:15 Dose: 1,000 unit Heparin Sodium (Porcine) (Heparin -) 5,000 unit IVPUSH PRN PRN PRN Reason: Heparin Aztreonam 2 gm/ Dextrose 100 mls @ 100 mls/hr IVPB Q8H-IV KRISTI; Protocol Last Admin: 01/23/19 10:07 Dose: 100 mls/hr Clindamycin Phosphate (Cleocin 600 Mg Premix Ivpb -) 600 mg in 50 mls @ 100 mls /hr IVPB Q8H-IV KRISTI; Protocol Last Admin: 01/23/19 10:07 Dose: 100 mls/hr Heparin Sodium (Porcine) 25, (000 unit/ Sodium Chloride) 500 mls @ 20 mls/hr IV TITR KRISTI; Protocol Last Titration: 01/23/19 10:14 Dose: 1,100 unit/hr, 22 mls/hr - Objective Vital Signs: Vital Signs Temperature 98 F 01/23/19 10:16 Pulse Rate 84 01/23/19 10:16 Respiratory Rate 20 01/23/19 10:16 Blood Pressure 118/76 01/23/19 10:16 O2 Sat by Pulse Oximetry (%) 97 01/22/19 20:48 Constitutional: Yes: No Distress, Calm Cardiovascular: Yes: Regular Rate and Rhythm Respiratory: Yes: Regular, CTA Bilaterally Gastrointestinal: Yes: Normal Bowel Sounds, Soft, Tenderness (minimal) Musculoskeletal: Yes: WNL Extremities: Yes: WNL Neurological: Yes: Alert, Oriented Psychiatric: Yes: Alert, Oriented Labs: CBC, BMP 01/23/19 08:40 01/23/19 08:40 INR, PTT INR 1.12 (0.83-1.09) H 01/20/19 06:20 Assessment/Plan Problem List - Problems (1) Postoperative fever Code(s): R50.82 - POSTPROCEDURAL FEVER (2) Endometrial polyp Code(s): N84.0 - POLYP OF CORPUS UTERI (3) Status post abdominal hysterectomy Code(s): Z90.710 - ACQUIRED ABSENCE OF BOTH CERVIX AND UTERUS Assessment/Plan Fever s/p ZENA Pelvic/adnexal fluid collection/Possible abscess PE Rash - resolved -- continue Aztreonam and clindamycin will d/w the team
--- NOTE | 2019-01-23 17:32 | PN ---
Progress Note, Physician History of Present Illness: Pt with RLL PEs and small pelvic postop fluid collection, possibly physiologic, possibly very small abscess. She is seen and examined in her room, sitting in a chair about to have dinner. She reports feeling better, with even less pain, not using any pain meds. Tenderness is also less in the LLQ. Occasional discomfort at the incision, but overall feeling well. Tolerating diet, having BMs. Voiding clear, but she does still have a little bit of bloody vaginal discharge with wiping, when using the bathroom. Has not seen Dr. Christian yet today to tell her about it. On heparin drip, PTT in 40s. Ambulating regularly. No fevers last 24 hrs. - Current Medication List Current Medications: Active Medications Heparin Sodium (Porcine) (Heparin -) 1,000 unit IVPUSH PRN PRN PRN Reason: Heparin Last Admin: 01/23/19 10:15 Dose: 1,000 unit Heparin Sodium (Porcine) (Heparin -) 5,000 unit IVPUSH PRN PRN PRN Reason: Heparin Aztreonam 2 gm/ Dextrose 100 mls @ 100 mls/hr IVPB Q8H-IV KRISTI; Protocol Last Admin: 01/23/19 10:07 Dose: 100 mls/hr Clindamycin Phosphate (Cleocin 600 Mg Premix Ivpb -) 600 mg in 50 mls @ 100 mls /hr IVPB Q8H-IV KRISTI; Protocol Last Admin: 01/23/19 10:07 Dose: 100 mls/hr Heparin Sodium (Porcine) 25, (000 unit/ Sodium Chloride) 500 mls @ 20 mls/hr IV TITR KRISTI; Protocol Last Titration: 01/23/19 10:14 Dose: 1,100 unit/hr, 22 mls/hr - Objective Vital Signs: Vital Signs Temperature 97.8 F 01/23/19 14:58 Pulse Rate 77 01/23/19 14:58 Respiratory Rate 18 01/23/19 14:58 Blood Pressure 107/63 01/23/19 14:58 O2 Sat by Pulse Oximetry (%) 97 01/23/19 09:00 Vital Signs Period Temp Pulse Resp BP Sys/Finch Pulse Ox Last 24 Hr 97.8 F-98.3 F 72-95 18-20 98-118/58-76 97-97 Constitutional: Yes: No Distress, Calm, Obese Eyes: Yes: Conjunctiva Clear, EOM Intact HENT: Yes: Atraumatic, Normocephalic Gastrointestinal: Yes: Soft, Abdomen, Obese, Tenderness (minimal to no tenderness at incision or LLQ area where she was tender yesterday). No: Tenderness, Epigastrium ...Rectal Exam: Yes: Deferred Genitourinary: Yes: Vaginal Bleeding (scant/little - see hpi) Extremities: No: Cool, Cyanosis Integumentary: Yes: Incision (Pfannenstiel, healing). No: Rash (even more faded ) Wound/Incision: Yes: Clean/Dry, Well Approximated, Open to air Neurological: Yes: Alert, Oriented Labs: CBC, BMP 01/23/19 08:40 01/23/19 08:40 PTT 40s CMP Sodium 138 mmol/L (136-145) 01/23/19 08:40 Potassium 3.9 mmol/L (3.5-5.1) 01/23/19 08:40 Chloride 104 mmol/L (98-107) 01/23/19 08:40 Carbon Dioxide 27 mmol/L (21-32) 01/23/19 08:40 Anion Gap 8 MMOL/L (8-16) 01/23/19 08:40 BUN 10.7 mg/dL (7-18) 01/23/19 08:40 Creatinine 0.6 mg/dL (0.55-1.3) 01/23/19 08:40 Est GFR (CKD-EPI)AfAm 123.18 01/23/19 08:40 Est GFR (CKD-EPI)NonAf 106.28 01/23/19 08:40 Random Glucose 106 mg/dL (74-106) 01/23/19 08:40 Lactic Acid 0.9 mmol/L (0.4-2.0) 01/17/19 23:26 Calcium 9.5 mg/dL (8.5-10.1) 01/23/19 08:40 Phosphorus 3.9 mg/dL (2.5-4.9) 01/22/19 06:55 Magnesium 2.6 mg/dL (1.8-2.4) H 01/22/19 06:55 Total Bilirubin 0.3 mg/dL (0.2-1) 01/23/19 08:40 AST 32 U/L (15-37) 01/23/19 08:40 ALT 122 U/L (13-61) H 01/23/19 08:40 Alkaline Phosphatase 233 U/L (45-117) H 01/23/19 08:40 Troponin I < 0.02 ng/ml (0.00-0.05) 01/18/19 06:15 C-Reactive Protein 9.5 MG/DL (0.00-0.3) H 01/18/19 06:15 B-Natriuretic Peptide 16.6 pg/ml (5-125) 01/18/19 06:15 Total Protein 7.6 g/dl (6.4-8.2) 01/23/19 08:40 Albumin 3.4 g/dl (3.4-5.0) 01/23/19 08:40 Lipase 114 U/L (73-393) 01/17/19 23:26 TSH 7.24 uIU/ml (0.358-3.74) H 01/18/19 06:15 Free T4 1.04 ng/dl (0.76-1.46) 01/19/19 06:25 wbc up slightly Hb also up a little Microbiology 01/17/19 23:26 Blood Culture - Final Blood - Peripheral Venous NO GROWTH AFTER 5 DAYS INCUBATION 01/17/19 23:26 Blood Culture - Final Blood - Peripheral Venous NO GROWTH AFTER 5 DAYS INCUBATION Problem List - Problems (1) LLQ pain Code(s): R10.32 - LEFT LOWER QUADRANT PAIN (2) Pelvic fluid collection Code(s): R18.8 - OTHER ASCITES (3) Fever presenting with conditions classified elsewhere Code(s): R50.81 - FEVER PRESENTING WITH CONDITIONS CLASSIFIED ELSEWHERE (4) Status post abdominal hysterectomy Code(s): Z90.710 - ACQUIRED ABSENCE OF BOTH CERVIX AND UTERUS (5) Other pulmonary embolism without acute cor pulmonale Code(s): I26.99 - OTHER PULMONARY EMBOLISM WITHOUT ACUTE COR PULMONALE Qualifiers: Chronicity: acute Qualified Code(s): I26.99 - Other pulmonary embolism without acute cor pulmonale (6) Class 1 obesity due to excess calories with body mass index (BMI) of 32.0 to 32.9 in adult Code(s): E66.09 - OTHER OBESITY DUE TO EXCESS CALORIES; Z68.32 - BODY MASS INDEX (BMI) 32.0-32.9, ADULT Qualifiers: Serious obesity comorbidity presence: without serious comorbidity Qualified Code(s): E66.09 - Other obesity due to excess calories; Z68.32 - Body mass index (BMI) 32.0-32.9, adult Assessment/Plan Patient with small pelvic/left adnexal fluid collection 1-2 weeks s/p ZENA/BSO - unclear if simple postop fluid or infected/abscess Also admitted with finding of acute RLL pulmonary emboli - started on anticoagulation, last dose Eliquis Wednesday morning Heparin drip going, PTT 40s no fevers last 24 hrs patient's pain and tenderness improving steadily - no sig pain or tenderness today, not using even tylenol no evidence of incisional infection, rectus sheath hematoma or cellulitis in abdominal wall tolerating diet, ambulating regularly on antibiotics per ID agree with checking to see if fluid collection is accessible to aspiration or drainage by IR, with culture if fluid obtained they may need to wait another 24 hrs given timing of last Eliquis anyway if not, would tend to follow patient's clinical exam over the next few days, as she is improving will follow along with you [employer] also following - if it is determined that fluid must be drained surgically, would discuss with Dr. Christian, as she could perform this laparoscopy may not be a preferred option this soon after open abdominal surgery trend labs NO need for DVT PROPHYLAXIS (SCDs), as she is getting therapeutic anticoagulation for PE consider hematology consultation - she will need to be followed for NOAC therapy as outpt, duration? Discussed with Dr. Nieves
--- NOTE | 2019-01-23 17:49 | PN ---
Physical Exam: SUBJECTIVE: Patient seen and examined. Pt doing well, no complaints of pain today. Ambulating well, tolerating PO diet. Had 3 soft, non- diarrhea stools last night. Endorses minimal amount of bloody vaginal discharge while wiping this morning. Pt is afebrile. OBJECTIVE: Vital Signs Period Temp Pulse Resp BP Sys/Finch Pulse Ox Last 24 Hr 97.8 F-98.3 F 72-95 18-20 98-118/58-76 97-97 GENERAL: The patient is awake, alert, and fully oriented, in no acute distress. LUNGS: Breath sounds equal, clear to auscultation bilaterally, no wheezes, no crackles, no accessory muscle use. HEART: Regular rate and rhythm, S1, S2 without murmur, rub or gallop. ABDOMEN: Faint macular rash present across lower abdomen. Soft, mild tenderness to palpation LLQ, nondistended, normoactive bowel sounds, no guarding. Suprapubic surgical site C/D/I with no signs of infection. EXTREMITIES: 2+ pulses, warm, well-perfused, no edema. Laboratory Results - last 24 hr Laboratory Last Values WBC 12.2 K/mm3 (4.0-10.0) H 01/23/19 08:40 RBC 4.48 M/mm3 (3.60-5.2) 01/23/19 08:40 Hgb 12.5 GM/dL (10.7-15.3) 01/23/19 08:40 Hct 37.8 % (32.4-45.2) 01/23/19 08:40 MCV 84.5 fl (80-96) 01/23/19 08:40 MCH 27.9 pg (25.7-33.7) 01/23/19 08:40 MCHC 33.0 g/dl (32.0-36.0) 01/23/19 08:40 RDW 14.1 % (11.6-15.6) 01/23/19 08:40 Plt Count 524 K/MM3 (134-434) H 01/23/19 08:40 MPV 8.0 fl (7.5-11.1) 01/23/19 08:40 Absolute Neuts (auto) 9.0 K/mm3 (1.5-8.0) H 01/23/19 08:40 Neutrophils % 73.3 % (42.8-82.8) 01/23/19 08:40 Neutrophils % (Manual) 72.0 % (42.8-82.8) 01/22/19 06:55 Band Neutrophils % 5.0 % 01/22/19 06:55 Lymphocytes % 17.5 % (8-40) D 01/23/19 08:40 Lymphocytes % (Manual) 9.0 % (8-40) 01/22/19 06:55 Monocytes % 7.4 % (3.8-10.2) 01/23/19 08:40 Monocytes % (Manual) 13 % (3.8-10.2) H 01/22/19 06:55 Eosinophils % 1.5 % (0-4.5) 01/23/19 08:40 Eosinophils % (Manual) 1.0 % (0-4.5) 01/22/19 06:55 Basophils % 0.3 % (0-2.0) 01/23/19 08:40 Basophils % (Manual) 0.0 % (0-2.0) 01/22/19 06:55 Myelocytes % (Man) 0 % (0-2) 01/22/19 06:55 Promyelocytes % (Man) 0 % (0-2) 01/22/19 06:55 Blast Cells % (Manual) 0 % (0-0) 01/22/19 06:55 Nucleated RBC % 0 % (0-0) 01/23/19 08:40 Metamyelocytes 0 % (0-2) 01/22/19 06:55 Hypochromia 0 01/22/19 06:55 Platelet Estimate Normal 01/22/19 06:55 Platelet Comment Present 01/22/19 06:55 Polychromasia 1+ 01/22/19 06:55 Poikilocytosis 1+ 01/22/19 06:55 Anisocytosis 1+ 01/22/19 06:55 Microcytosis 1+ 01/22/19 06:55 Macrocytosis 0 01/22/19 06:55 Ovalocytes 1+ 01/22/19 06:55 Stomatocytes 1+ 01/22/19 06:55 ESR 74 mm/hr (0-30) H 01/18/19 06:15 PT with INR 13.20 SEC (9.7-13.0) H 01/20/19 06:20 INR 1.12 (0.83-1.09) H 01/20/19 06:20 PTT (Actin FS) 49.5 SECONDS (25.2-36.5) H 01/23/19 16:00 Sodium 138 mmol/L (136-145) 01/23/19 08:40 Potassium 3.9 mmol/L (3.5-5.1) 01/23/19 08:40 Chloride 104 mmol/L (98-107) 01/23/19 08:40 Carbon Dioxide 27 mmol/L (21-32) 01/23/19 08:40 Anion Gap 8 MMOL/L (8-16) 01/23/19 08:40 BUN 10.7 mg/dL (7-18) 01/23/19 08:40 Creatinine 0.6 mg/dL (0.55-1.3) 01/23/19 08:40 Est GFR (CKD-EPI)AfAm 123.18 01/23/19 08:40 Est GFR (CKD-EPI)NonAf 106.28 01/23/19 08:40 Random Glucose 106 mg/dL (74-106) 01/23/19 08:40 Lactic Acid 0.9 mmol/L (0.4-2.0) 01/17/19 23:26 Calcium 9.5 mg/dL (8.5-10.1) 01/23/19 08:40 Phosphorus 3.9 mg/dL (2.5-4.9) 01/22/19 06:55 Magnesium 2.6 mg/dL (1.8-2.4) H 01/22/19 06:55 Total Bilirubin 0.3 mg/dL (0.2-1) 01/23/19 08:40 AST 32 U/L (15-37) 01/23/19 08:40 ALT 122 U/L (13-61) H 01/23/19 08:40 Alkaline Phosphatase 233 U/L (45-117) H 01/23/19 08:40 Troponin I < 0.02 ng/ml (0.00-0.05) 01/18/19 06:15 C-Reactive Protein 9.5 MG/DL (0.00-0.3) H 01/18/19 06:15 B-Natriuretic Peptide 16.6 pg/ml (5-125) 01/18/19 06:15 Total Protein 7.6 g/dl (6.4-8.2) 01/23/19 08:40 Albumin 3.4 g/dl (3.4-5.0) 01/23/19 08:40 Lipase 114 U/L (73-393) 01/17/19 23:26 TSH 7.24 uIU/ml (0.358-3.74) H 01/18/19 06:15 Free T4 1.04 ng/dl (0.76-1.46) 01/19/19 06:25 Stool Occult Blood Negative (NEGATIVE) 01/21/19 12:00 Acetaminophen 2.3 ug/mL (10-30) L 01/17/19 23:26 Hep A IgM Ab Confirm Negative (Negative) 01/19/19 06:15 Hep Bs Antigen Negative (Negative) 01/19/19 06:15 Hep B Core IgM Ab Negative (Negative) 01/19/19 06:15 Hepatitis C Ab (EIA) <0.1 s/co ratio (0.0-0.9) 01/19/19 06:15 Active Medications Current Medications Heparin Sodium (Porcine) (Heparin -) 1,000 unit IVPUSH PRN PRN PRN Reason: Heparin Last Admin: 01/23/19 10:15 Dose: 1,000 unit Heparin Sodium (Porcine) (Heparin -) 5,000 unit IVPUSH PRN PRN PRN Reason: Heparin Aztreonam 2 gm/ Dextrose 100 mls @ 100 mls/hr IVPB Q8H-IV KRISTI; Protocol Last Admin: 01/23/19 10:07 Dose: 100 mls/hr Clindamycin Phosphate (Cleocin 600 Mg Premix Ivpb -) 600 mg in 50 mls @ 100 mls /hr IVPB Q8H-IV KRISTI; Protocol Last Admin: 01/23/19 10:07 Dose: 100 mls/hr Heparin Sodium (Porcine) 25, (000 unit/ Sodium Chloride) 500 mls @ 20 mls/hr IV TITR KRISTI; Protocol Last Titration: 01/23/19 10:14 Dose: 1,100 unit/hr, 22 mls/hr ASSESSMENT/PLAN: 48 y.o. F PMH abd aneurysm, fibroids, HLD, post op day +10 s/p ZENA w/ salpingectomy who presented w/ generalized fatigue, nausea & chills found to have PE within RLL on chest CTA and abdominal fluid collection on CT abdomen. #Left adnexa & midpelvis fluid collection -Leukocytosis- WBC 12.2 -Abx Aztreonam 2g IV q8 & clindamycin 600mg IV q8 -Currently afebrile; monitor for fevers -[employer] following -May plan for possible IR drainage; pt put on heparin, stopped eliquis #RLL PE -Now on heparin drip -Denies SOB #Transaminitis -Abd US: Fatty liver -LFTs downtrending -Hep panel neg #FEN -no standing fluids -trend bmp -diabetic diet #DVT ppx -Heparin Visit type - Emergency Visit Emergency Visit: No - New Patient This patient is new to me today: No - Critical Care Critical Care patient: No ATTENDING PHYSICIAN STATEMENT I saw and evaluated the patient. I reviewed the resident's note and discussed the case with the resident. I agree with the resident's findings and plan as documented. SUBJECTIVE: OBJECTIVE: ASSESSMENT AND PLAN:
[2019-01-24] MEDS: HEPARIN - 25,000 UNIT in SODIUM CHLORIDE 495 ML IV SCH ×2 (00:55→23:38)
[2019-01-24] MEDS: HEPARIN NA (PORCINE) 5,000 UNITS/ML 1ML VIAL IVPUSH PRN (00:58)
[2019-01-24] MEDS ORDERED: PT OWN MED DRAWER 7, Y5N ONE ×3 (00:59→17:52)
[2019-01-24] MEDS: AZTREONAM 2 GM in DEXTROSE 5%-WATER 100 ML IVPB SCH ×3 (01:04→18:38)
[2019-01-24] MEDS: CLINDAMYCIN 600MG PREMIX IVPB 600 MG/50 ML BAG IVPB SCH ×3 (02:13→17:56)
[2019-01-24 06:35] LABS: BASO % 0.2 % (0-2.0); EOS % 1.4 % (0-4.5); HEMATOCRIT 32.2 % (32.4-45.2); LYMPH % 19.2 % (8-40); MCH 28.7 pg (25.7-33.7); MCHC 34.2 g/dl (32.0-36.0); MEAN CELL VOLUME 83.9 fl (80-96); MEAN PLT VOLUME 8.1 fl (7.5-11.1); MONO % 7.3 % (3.8-10.2); NEUT % 71.9 % (42.8-82.8); PLATELET COUNT 471 K/MM3 (134-434); RBC 3.84 M/mm3 (3.60-5.2); RDW 14.4 % (11.6-15.6); WHITE BLOOD COUNT 12.1 K/mm3 (4.0-10.0)
[2019-01-24 06:39] LABS: BILIRUBIN,TOTAL 0.2 mg/dL (0.2-1); BLOOD UREA NITROGEN 12.7 mg/dL (7-18); CALCIUM 8.6 mg/dL (8.5-10.1); CREATININE 0.6 mg/dL (0.55-1.3)
[2019-01-24] MEDS: LACTOBACILLUS ACIDOPHILUS 1 TABLET PO SCH (10:05)
--- NOTE | 2019-01-24 10:27 | PN ---
Progress Note (short form) - Note Progress Note: 48F with pmh of HLD, abdominal aneurysm, fibroids, status post abdominal hysterectomy / Bilateral salpingectomy on January 10, presents to ER c/o fever, SOB and cough. Patient was discharged on January 13 in stable condition. Patient seen and evaluated, she's OOB to chair. Doing well. PE : ABD : soft, no distention Tenderness above the incision only upon palpation, no erythema. Incision is healing, no drainage of purulent nor serosanguinous discharge. ASS / Plan : Pulmonary embolism Pelvic collection Status post abdominal hysterectomy Drainage of pelvic collection today by IR Continue antibiotic F/U CBC
[2019-01-24 11:33] LABS: ANISOCYTOSIS 0; MACROCYTOSIS 0; PLATELET ESTIMATE NORMAL
--- NOTE | 2019-01-24 11:36 | PN ---
Teaching Attending Note Name of Resident: Keyanna Hunter ATTENDING PHYSICIAN STATEMENT I saw and evaluated the patient. I reviewed the resident's note and discussed the case with the resident. I agree with the resident's findings and plan as documented. SUBJECTIVE:asymptomatic. tolerating diet. had 1 loose BM yesterday. denies Cp, SOB, fever, chills, N/V/C/D OBJECTIVE: Last Vital Signs Temp Pulse Resp BP Pulse Ox 98 F 77 18 122/66 98 01/24/19 08:45 01/24/19 08:45 01/24/19 08:45 01/24/19 08:45 01/23/19 21:00 General NAD CV S1 S2 RRR no murmur/rub/gallop Lungs CTA B/L no wheezing/rales/rhonchi Abdomen soft NT/ND obese ASSESSMENT AND PLAN: 48 yo F with PMH dyslipidemia, AAA, Fibroid Uterus, POD 12 s/p ZENA presented with fevers, chills, malaise, found to have intra-abdominal fluid collection and RLL PE. 1. Acute RLL PE- with recent surgery. on heparin ggt for further procedures. will need short term anticoagulation when no longer procedures are necessary 2. Intra abdominal/pelvic collections- concern for abscess. repeat CT on 01/22 showing 5x3.7x3.8cm collection concerning for abscess. clinical improvement with abx treatment. plan for drainage by IR today. on Aztreonam/clindamycin. will f/u cx although likely to be negative as already on abx. ID, surgery and [employer] on board 3. Drug rash- allergic reaction likely due to cefepime. now cleared. allergy entered into the computer 4. Diarrhea- likely abx assoc diarrhea. low concern for cdiff given already resolved and not any other concerning signs (fever or abdominal pain). will start bacid. consider stool cx if remits 5. Transaminitis- unclear etiology. ultrasound reviewed. hepatitis panel negative. trending down 6. DVT ppx- Hep ggt 7. can d/c cardiac monitoring
--- NOTE | 2019-01-24 12:57 | PN ---
Progress Note, Physician History of Present Illness: stable patient for aspiration - Current Medication List Current Medications: Active Medications Heparin Sodium (Porcine) (Heparin -) 1,000 unit IVPUSH PRN PRN PRN Reason: Heparin Last Admin: 01/24/19 00:58 Dose: 1,000 unit Heparin Sodium (Porcine) (Heparin -) 5,000 unit IVPUSH PRN PRN PRN Reason: Heparin Aztreonam 2 gm/ Dextrose 100 mls @ 100 mls/hr IVPB Q8H-IV KRISTI; Protocol Last Admin: 01/24/19 09:56 Dose: 100 mls/hr Clindamycin Phosphate (Cleocin 600 Mg Premix Ivpb -) 600 mg in 50 mls @ 100 mls /hr IVPB Q8H-IV KRISTI; Protocol Last Admin: 01/24/19 09:01 Dose: 100 mls/hr Heparin Sodium (Porcine) 25, (000 unit/ Sodium Chloride) 500 mls @ 20 mls/hr IV TITR KRISTI; Protocol Last Titration: 01/24/19 06:33 Dose: 1,300 unit/hr, 26 mls/hr Lactobacillus Acidophilus (Bacid -) 1 tab PO DAILY KRISTI Last Admin: 01/24/19 10:05 Dose: 1 tab - Objective Vital Signs: Vital Signs Temperature 98 F 01/24/19 08:45 Pulse Rate 77 01/24/19 08:45 Respiratory Rate 18 01/24/19 08:45 Blood Pressure 122/66 01/24/19 08:45 O2 Sat by Pulse Oximetry (%) 98 01/23/19 21:00 Constitutional: Yes: No Distress, Calm Cardiovascular: Yes: Regular Rate and Rhythm Respiratory: Yes: Regular, CTA Bilaterally Gastrointestinal: Yes: Normal Bowel Sounds, Soft Musculoskeletal: Yes: WNL Extremities: Yes: WNL Neurological: Yes: Alert, Oriented Psychiatric: Yes: Alert, Oriented Labs: CBC, BMP 01/24/19 05:20 01/24/19 05:20 INR, PTT INR 1.12 (0.83-1.09) H 01/20/19 06:20 Assessment/Plan Problem List - Problems (1) Postoperative fever Code(s): R50.82 - POSTPROCEDURAL FEVER (2) Endometrial polyp Code(s): N84.0 - POLYP OF CORPUS UTERI (3) Status post abdominal hysterectomy Code(s): Z90.710 - ACQUIRED ABSENCE OF BOTH CERVIX AND UTERUS Assessment/Plan Fever s/p ZENA Pelvic/adnexal fluid collection/Possible abscess PE Rash - resolved -- continue Aztreonam and clindamycin patient for aspiration of collection today
[2019-01-24] MEDS ORDERED: HYDROmorphone HCl 2 MG/ML VIAL IVPUSH ONE (15:30)
--- NOTE | 2019-01-24 16:14 | PN ---
Progress Note, Physician History of Present Illness: Pt with RLL PEs and small pelvic postop fluid collection, most likely physiologic. She is seen and examined in bed, having just had IR aspiration of the left pelvic fluid. Radiologist reports 2ml blood fluid (not purulent) sent for culture. She reports feeling "a little high" from the medication still, but with no pain. She reports no more vaginal bloody mucus or discharge now either. On heparin drip, PTT in 50s. WBC 12.2 today. - Current Medication List Current Medications: Active Medications Heparin Sodium (Porcine) (Heparin -) 1,000 unit IVPUSH PRN PRN PRN Reason: Heparin Last Admin: 01/24/19 00:58 Dose: 1,000 unit Heparin Sodium (Porcine) (Heparin -) 5,000 unit IVPUSH PRN PRN PRN Reason: Heparin Aztreonam 2 gm/ Dextrose 100 mls @ 100 mls/hr IVPB Q8H-IV KRISTI; Protocol Last Admin: 01/24/19 09:56 Dose: 100 mls/hr Clindamycin Phosphate (Cleocin 600 Mg Premix Ivpb -) 600 mg in 50 mls @ 100 mls /hr IVPB Q8H-IV KRISTI; Protocol Last Admin: 01/24/19 09:01 Dose: 100 mls/hr Heparin Sodium (Porcine) 25, (000 unit/ Sodium Chloride) 500 mls @ 20 mls/hr IV TITR KRISTI; Protocol Last Titration: 01/24/19 06:33 Dose: 1,300 unit/hr, 26 mls/hr Lactobacillus Acidophilus (Bacid -) 1 tab PO DAILY KRISTI Last Admin: 01/24/19 10:05 Dose: 1 tab - Objective Vital Signs: Vital Signs Temperature 98 F 01/24/19 15:38 Pulse Rate 76 01/24/19 15:38 Respiratory Rate 17 01/24/19 15:38 Blood Pressure 111/63 01/24/19 15:38 O2 Sat by Pulse Oximetry (%) 100 01/24/19 14:54 Constitutional: Yes: No Distress, Calm, Obese Eyes: Yes: Conjunctiva Clear, EOM Intact HENT: Yes: Atraumatic, Normocephalic Gastrointestinal: Yes: Soft, Abdomen, Obese. No: Tenderness (no real tenderness at incision or left abdominal wall), Tenderness, Epigastrium Extremities: No: Cool, Cyanosis Integumentary: Yes: Incision (pfannenstiel, healing). No: Jaundice, Rash Wound/Incision: Yes: Clean/Dry, Well Approximated, Open to air Neurological: Yes: Alert, Oriented, Other (a little sleepy, but coherent) Labs: CBC, BMP 01/24/19 05:20 01/24/19 05:20 last PTT 51.6 bloody pelvic fluid sent for cultures today - ....Imaging Cat Scan: Report Reviewed, Image Reviewed (aspiration images reviewed - discussed with Dr. Song, no pus, just bloody fluid, 2ml, withdrawn, via transgluteal access) Problem List - Problems (1) LLQ pain Assessment/Plan: improved, resolved Code(s): R10.32 - LEFT LOWER QUADRANT PAIN (2) Pelvic fluid collection Assessment/Plan: bloody fluid only - no purulence, not abscess most likely normal postop fluid for 2 weeks out Code(s): R18.8 - OTHER ASCITES (3) Fever presenting with conditions classified elsewhere Assessment/Plan: temps down, no fevers for 2 days Code(s): R50.81 - FEVER PRESENTING WITH CONDITIONS CLASSIFIED ELSEWHERE (4) Status post abdominal hysterectomy Assessment/Plan: 2 wks postop Code(s): Z90.710 - ACQUIRED ABSENCE OF BOTH CERVIX AND UTERUS (5) Other pulmonary embolism without acute cor pulmonale Assessment/Plan: right lower lobe, on heparin likely transition back to eliquis soon Code(s): I26.99 - OTHER PULMONARY EMBOLISM WITHOUT ACUTE COR PULMONALE Qualifiers: Chronicity: acute Qualified Code(s): I26.99 - Other pulmonary embolism without acute cor pulmonale (6) Class 1 obesity due to excess calories with body mass index (BMI) of 32.0 to 32.9 in adult Code(s): E66.09 - OTHER OBESITY DUE TO EXCESS CALORIES; Z68.32 - BODY MASS INDEX (BMI) 32.0-32.9, ADULT Qualifiers: Serious obesity comorbidity presence: without serious comorbidity Qualified Code(s): E66.09 - Other obesity due to excess calories; Z68.32 - Body mass index (BMI) 32.0-32.9, adult Assessment/Plan Patient with small pelvic/left adnexal fluid collection, now 2 weeks s/p ZENA/BSO s/p IR aspiration today of few ml bloody fluid only - no abscess sent for culture on antibiotics per ID - can probably stop patient's pain and tenderness essentially resolved Also admitted with finding of acute RLL pulmonary emboli - started on anticoagulation, last dose Eliquis Wednesday morning Heparin drip going, PTT therapeutic no fevers last 48 hrs tolerating diet, ambulating regularly [employer] also following no general surgical needs identified will sign off - please call with any further questions or concerns NO need for DVT PROPHYLAXIS (SCDs), as she is getting therapeutic anticoagulation for PE consider hematology consultation - she will need to be followed for NOAC therapy as outpt, duration?
--- NOTE | 2019-01-24 17:00 | PN ---
Physical Exam: SUBJECTIVE: Patient seen and examined. In NAD. Pt had abd fluid collection tapped today. Will f/u results. No diarrhea today. OBJECTIVE: Vital Signs Period Temp Pulse Resp BP Sys/Finch Pulse Ox Last 24 Hr 98 F-98.9 F 76-95 -19 101-144/49-88 98-100 GENERAL: The patient is awake, alert, and fully oriented, in no acute distress. LUNGS: Breath sounds equal, clear to auscultation bilaterally, no wheezes, no crackles, no accessory muscle use. HEART: Regular rate and rhythm, S1, S2 without murmur, rub or gallop. ABDOMEN: Faint macular rash present across lower abdomen. Soft, nontender, nondistended, normoactive bowel sounds, no guarding. Suprapubic surgical site C/ D/I with no signs of infection. EXTREMITIES: 2+ pulses, warm, well-perfused, no edema. Laboratory Results - last 24 hr Laboratory Last Values WBC 12.1 K/mm3 (4.0-10.0) H 01/24/19 05:20 RBC 3.84 M/mm3 (3.60-5.2) 01/24/19 05:20 Hgb 11.0 GM/dL (10.7-15.3) 01/24/19 05:20 Hct 32.2 % (32.4-45.2) L 01/24/19 05:20 MCV 83.9 fl (80-96) 01/24/19 05:20 MCH 28.7 pg (25.7-33.7) 01/24/19 05:20 MCHC 34.2 g/dl (32.0-36.0) 01/24/19 05:20 RDW 14.4 % (11.6-15.6) 01/24/19 05:20 Plt Count 471 K/MM3 (134-434) H 01/24/19 05:20 MPV 8.1 fl (7.5-11.1) 01/24/19 05:20 Absolute Neuts (auto) 8.7 K/mm3 (1.5-8.0) H 01/24/19 05:20 Neutrophils % 71.9 % (42.8-82.8) 01/24/19 05:20 Neutrophils % (Manual) 75.0 % (42.8-82.8) 01/24/19 05:20 Band Neutrophils % 1.0 % 01/24/19 05:20 Lymphocytes % 19.2 % (8-40) 01/24/19 05:20 Lymphocytes % (Manual) 20.0 % (8-40) D 01/24/19 05:20 Monocytes % 7.3 % (3.8-10.2) 01/24/19 05:20 Monocytes % (Manual) 1 % (3.8-10.2) L D 01/24/19 05:20 Eosinophils % 1.4 % (0-4.5) 01/24/19 05:20 Eosinophils % (Manual) 0.0 % (0-4.5) D 01/24/19 05:20 Basophils % 0.2 % (0-2.0) 01/24/19 05:20 Basophils % (Manual) 0.0 % (0-2.0) 01/24/19 05:20 Myelocytes % (Man) 0 % (0-2) 01/24/19 05:20 Promyelocytes % (Man) 0 % (0-2) 01/24/19 05:20 Blast Cells % (Manual) 0 % (0-0) 01/24/19 05:20 Nucleated RBC % 0 % (0-0) 01/24/19 05:20 Metamyelocytes 2 % (0-2) D 01/24/19 05:20 Hypochromia 0 01/24/19 05:20 Platelet Estimate Normal 01/24/19 05:20 Platelet Comment Present 01/22/19 06:55 Polychromasia 0 01/24/19 05:20 Poikilocytosis 0 01/24/19 05:20 Anisocytosis 0 01/24/19 05:20 Microcytosis 0 01/24/19 05:20 Macrocytosis 0 01/24/19 05:20 Ovalocytes 1+ 01/22/19 06:55 Stomatocytes 1+ 01/22/19 06:55 ESR 74 mm/hr (0-30) H 01/18/19 06:15 PT with INR 13.20 SEC (9.7-13.0) H 01/20/19 06:20 INR 1.12 (0.83-1.09) H 01/20/19 06:20 PTT (Actin FS) 51.6 SECONDS (25.2-36.5) H 01/24/19 05:20 Sodium 139 mmol/L (136-145) 01/24/19 05:20 Potassium 4.0 mmol/L (3.5-5.1) 01/24/19 05:20 Chloride 106 mmol/L (98-107) 01/24/19 05:20 Carbon Dioxide 27 mmol/L (21-32) 01/24/19 05:20 Anion Gap 7 MMOL/L (8-16) L 01/24/19 05:20 BUN 12.7 mg/dL (7-18) 01/24/19 05:20 Creatinine 0.6 mg/dL (0.55-1.3) 01/24/19 05:20 Est GFR (CKD-EPI)AfAm 123.18 01/24/19 05:20 Est GFR (CKD-EPI)NonAf 106.28 01/24/19 05:20 Random Glucose 109 mg/dL (74-106) H 01/24/19 05:20 Lactic Acid 0.9 mmol/L (0.4-2.0) 01/17/19 23:26 Calcium 8.6 mg/dL (8.5-10.1) 01/24/19 05:20 Phosphorus 3.9 mg/dL (2.5-4.9) 01/22/19 06:55 Magnesium 2.6 mg/dL (1.8-2.4) H 01/22/19 06:55 Total Bilirubin 0.2 mg/dL (0.2-1) 01/24/19 05:20 AST 29 U/L (15-37) 01/24/19 05:20 ALT 99 U/L (13-61) H 01/24/19 05:20 Alkaline Phosphatase 203 U/L (45-117) H 01/24/19 05:20 Troponin I < 0.02 ng/ml (0.00-0.05) 01/18/19 06:15 C-Reactive Protein 9.5 MG/DL (0.00-0.3) H 01/18/19 06:15 B-Natriuretic Peptide 16.6 pg/ml (5-125) 01/18/19 06:15 Total Protein 7.0 g/dl (6.4-8.2) 01/24/19 05:20 Albumin 3.0 g/dl (3.4-5.0) L 01/24/19 05:20 Lipase 114 U/L (73-393) 01/17/19 23:26 TSH 7.24 uIU/ml (0.358-3.74) H 01/18/19 06:15 Free T4 1.04 ng/dl (0.76-1.46) 01/19/19 06:25 Stool Occult Blood Negative (NEGATIVE) 01/21/19 12:00 Acetaminophen 2.3 ug/mL (10-30) L 01/17/19 23:26 Hep A IgM Ab Confirm Negative (Negative) 01/19/19 06:15 Hep Bs Antigen Negative (Negative) 01/19/19 06:15 Hep B Core IgM Ab Negative (Negative) 01/19/19 06:15 Hepatitis C Ab (EIA) <0.1 s/co ratio (0.0-0.9) 01/19/19 06:15 Active Medications Current Medications Heparin Sodium (Porcine) (Heparin -) 1,000 unit IVPUSH PRN PRN PRN Reason: Heparin Last Admin: 01/24/19 00:58 Dose: 1,000 unit Heparin Sodium (Porcine) (Heparin -) 5,000 unit IVPUSH PRN PRN PRN Reason: Heparin Aztreonam 2 gm/ Dextrose 100 mls @ 100 mls/hr IVPB Q8H-IV KRISTI; Protocol Last Admin: 01/24/19 09:56 Dose: 100 mls/hr Clindamycin Phosphate (Cleocin 600 Mg Premix Ivpb -) 600 mg in 50 mls @ 100 mls /hr IVPB Q8H-IV KRISTI; Protocol Last Admin: 01/24/19 09:01 Dose: 100 mls/hr Heparin Sodium (Porcine) 25, (000 unit/ Sodium Chloride) 500 mls @ 20 mls/hr IV TITR KRISTI; Protocol Last Titration: 01/24/19 06:33 Dose: 1,300 unit/hr, 26 mls/hr Lactobacillus Acidophilus (Bacid -) 1 tab PO DAILY KRISTI Last Admin: 01/24/19 10:05 Dose: 1 tab ASSESSMENT/PLAN: 48 y.o. F PMH abd aneurysm, fibroids, HLD, post op day +10 s/p ZENA w/ salpingectomy who presented w/ generalized fatigue, nausea & chills found to have PE within RLL on chest CTA and abdominal fluid collection on CT abdomen. #Left adnexa & midpelvis fluid collection -IR tapped today; fluid gram stain, body fl culture, anaerobic cx, fungal & mycobacterial culture pending -Leukocytosis persists- WBC 12.1 -Abx Aztreonam 2g IV q8 & clindamycin 600mg IV q8 -Currently afebrile; monitor for fevers -.Net Architect following #RLL PE -Heparin drip -Denies SOB #Transaminitis -Abd US: Fatty liver -LFTs downtrending -Hep panel neg #FEN -no standing fluids -trend bmp -diabetic diet #DVT ppx -Heparin Visit type - Emergency Visit Emergency Visit: No - New Patient This patient is new to me today: No - Critical Care Critical Care patient: No ATTENDING PHYSICIAN STATEMENT I saw and evaluated the patient. I reviewed the resident's note and discussed the case with the resident. I agree with the resident's findings and plan as documented. SUBJECTIVE: OBJECTIVE: ASSESSMENT AND PLAN:
[2019-01-25] MEDS ORDERED: PT OWN MED DRAWER 7, Y5N ONE ×3 (01:44→19:05)
[2019-01-25] MEDS: AZTREONAM 2 GM in DEXTROSE 5%-WATER 100 ML IVPB SCH ×3 (01:52→17:20)
[2019-01-25] MEDS: CLINDAMYCIN 600MG PREMIX IVPB 600 MG/50 ML BAG IVPB SCH ×2 (02:48→10:31)
[2019-01-25 06:38] LABS: BASO % 0.3 % (0-2.0); EOS % 1.2 % (0-4.5); HEMOGLOBIN 12.7 GM/dL (10.7-15.3); LYMPH % 20.6 % (8-40); MCH 28.8 pg (25.7-33.7); MCHC 34.3 g/dl (32.0-36.0); MEAN CELL VOLUME 83.9 fl (80-96); MEAN PLT VOLUME 8.2 fl (7.5-11.1); MONO % 6.6 % (3.8-10.2); NEUT % 71.3 % (42.8-82.8); PLATELET COUNT 537 K/MM3 (134-434); RBC 4.41 M/mm3 (3.60-5.2); RDW 14.1 % (11.6-15.6)
[2019-01-25 06:56] LABS: BLOOD UREA NITROGEN 9.9 mg/dL (7-18); CREATININE 0.6 mg/dL (0.55-1.3)
[2019-01-25 06:57] LABS: ALBUMIN 3.5 g/dl (3.4-5.0); BILIRUBIN,TOTAL 0.4 mg/dL (0.2-1); CALCIUM 9.6 mg/dL (8.5-10.1); POTASSIUM 4.2 mmol/L (3.5-5.1); TOT PROT 8.3 g/dl (6.4-8.2)
[2019-01-25] MEDS: HEPARIN - 25,000 UNIT in SODIUM CHLORIDE 495 ML IV SCH ×2 (08:45→10:30)
[2019-01-25] MEDS: LACTOBACILLUS ACIDOPHILUS 1 TABLET PO SCH (10:31)
--- NOTE | 2019-01-25 10:49 | PN ---
Progress Note, Physician History of Present Illness: stable no new issues - Current Medication List Current Medications: Active Medications Apixaban (Eliquis -) 10 mg PO BID KRISTI Stop: 02/01/19 10:00 Heparin Sodium (Porcine) (Heparin -) 1,000 unit IVPUSH PRN PRN PRN Reason: Heparin Stop: 01/25/19 20:00 Last Admin: 01/24/19 00:58 Dose: 1,000 unit Heparin Sodium (Porcine) (Heparin -) 5,000 unit IVPUSH PRN PRN PRN Reason: Heparin Stop: 01/25/19 20:00 Aztreonam 2 gm/ Dextrose 100 mls @ 100 mls/hr IVPB Q8H-IV KRISTI; Protocol Last Admin: 01/25/19 10:31 Dose: 100 mls/hr Clindamycin Phosphate (Cleocin 600 Mg Premix Ivpb -) 600 mg in 50 mls @ 100 mls /hr IVPB Q8H-IV KRISTI; Protocol Last Admin: 01/25/19 10:31 Dose: 100 mls/hr Heparin Sodium (Porcine) 25, (000 unit/ Sodium Chloride) 500 mls @ 20 mls/hr IV TITR KRISTI; Protocol Stop: 01/25/19 20:00 Last Admin: 01/25/19 10:30 Dose: 1,300 unit/hr, 26 mls/hr Lactobacillus Acidophilus (Bacid -) 1 tab PO DAILY KRISTI Last Admin: 01/25/19 10:31 Dose: 1 tab - Objective Vital Signs: Vital Signs Temperature 98 F 01/25/19 06:00 Pulse Rate 72 01/25/19 06:00 Respiratory Rate 18 01/25/19 06:00 Blood Pressure 107/63 01/25/19 06:00 O2 Sat by Pulse Oximetry (%) 96 01/24/19 21:00 Constitutional: Yes: No Distress, Calm Cardiovascular: Yes: S1, S2 Respiratory: Yes: Regular, CTA Bilaterally Gastrointestinal: Yes: Normal Bowel Sounds, Soft Musculoskeletal: Yes: WNL Extremities: Yes: WNL Neurological: Yes: Alert, Oriented Psychiatric: Yes: Alert, Oriented Labs: CBC, BMP 01/25/19 05:20 01/25/19 05:20 INR, PTT INR 1.12 (0.83-1.09) H 01/20/19 06:20 Assessment/Plan Problem List - Problems (1) Postoperative fever Code(s): R50.82 - POSTPROCEDURAL FEVER (2) Endometrial polyp Code(s): N84.0 - POLYP OF CORPUS UTERI (3) Status post abdominal hysterectomy Code(s): Z90.710 - ACQUIRED ABSENCE OF BOTH CERVIX AND UTERUS Assessment/Plan Fever s/p ZNEA Pelvic/adnexal fluid collection/Possible abscess PE Rash - resolved -- continue Aztreonam await for isolation of organism will stop clinda
--- NOTE | 2019-01-25 11:24 | PN ---
Teaching Attending Note Name of Resident: Keyanna Hunter ATTENDING PHYSICIAN STATEMENT I saw and evaluated the patient. I reviewed the resident's note and discussed the case with the resident. I agree with the resident's findings and plan as documented. SUBJECTIVE:had episode of CP last night which was assoc with SOB which self resolved after several minutes. state it occurred while laying on her stomach last night. Had routine stress test done 2 years ago and reports it as negative. states she has no pain at Biopsy site. denies Cp, SOB, fever, chills, N/v/c/D OBJECTIVE: Last Vital Signs Temp Pulse Resp BP Pulse Ox 98 F 72 18 107/63 96 01/25/19 06:00 01/25/19 06:00 01/25/19 06:00 01/25/19 06:00 01/24/19 21:00 General NAD CV S1 S2 RRR no murmur/rub/gallop Lungs CTA B/L no wheezing/rales/rhonchi Abdomen soft NT/ND obese back bandage on L buttock with no tenderness no fluctuance or bleeding noted. bandage c/d/i ASSESSMENT AND PLAN: 48 yo F with PMH dyslipidemia, AAA, Fibroid Uterus, POD 12 s/p ZENA presented with fevers, chills, malaise, found to have intra-abdominal fluid collection and RLL PE. 1. Acute RLL PE- with recent surgery. on heparin ggt. can switch to eliquis at this time as no indication for future procedures. will need to continue for a minimum of 3 months and have hypercoag workup as outpaitent to see if furhter treatment is indicated. start at 10mg BID x7 days then 5mg BID 2. Intra abdominal/pelvic collections- concern for abscess.s/p drainage by IR on 01/24. tolerated procedure well. fluid did not appear infected. cx sent to micro. agree with stopping clindamycin at this time. on aztreonam day 9. f/u cx to determine if abx need to be continued. ID, surgery and MARBLEIZING MACHINE TENDER on board 3. Drug rash- allergic reaction likely due to cefepime. now cleared. 4. Diarrhea- likely abx assoc diarrhea. resolved. on bacid 5. Transaminitis- unclear etiology. ultrasound reviewed. hepatitis panel negative. trending down 6. DVT ppx- Hep ggt will switch to eliquis 7. will monitor for results of Cx which should be obtained tomorrow. pending on results can determine abx needs and can be discharged. spoke wtih MARBLEIZING MACHINE TENDER
[2019-01-25 11:36] LABS: ANISOCYTOSIS 0; HELMET CELLS 0; HOWELL-JOLLY BODIES 0; MACROCYTOSIS 0; OVALOCYTE 0; PLATELET ESTIMATE INCREASED; ROULEAU 0; SICKELED CELLS 0; TARGET CELLS 0; TEAR DROP CELLS 0; TOXIC GRANULATION 0
--- NOTE | 2019-01-25 12:01 | EKG ---
Test Reason : Blood Pressure : / mmHG Vent. Rate : 076 BPM Atrial Rate : 076 BPM P-R Int : 178 ms QRS Dur : 072 ms QT Int : 368 ms P-R-T Axes : 062 052 052 degrees QTc Int : 414 ms NORMAL SINUS RHYTHM NORMAL ECG WHEN COMPARED WITH ECG OF 18-JAN-2019 03:56, NO SIGNIFICANT CHANGE WAS FOUND Confirmed by DEVANTE ARRINGTON MD ([id number]) on 01/25/2019 12:01:15 PM Referred By: Confirmed By:DEVANTE ARRINGTON MD
--- NOTE | 2019-01-25 13:56 | PN ---
Physical Exam: SUBJECTIVE: Patient seen and examined. Pt had 1 episode chest pain & shortness of breath last night which have since resolved. Trops x1/ CK negative. Denies CP /SOB today. S/p abdominal fluid tap. Had 1 soft bowel movement yesterday, reports 1 today with small streak of blood. Pt has ext hemorrhoids. Denies diarrhea. OBJECTIVE: Vital Signs Period Temp Pulse Resp BP Sys/Finch Pulse Ox Last 24 Hr 97.4 F-98.5 F 68-95 11-19 107-144/49-88 96-100 GENERAL: The patient is awake, alert, and fully oriented, in no acute distress. LUNGS: Breath sounds equal, clear to auscultation bilaterally, no wheezes, no crackles, no accessory muscle use. HEART: Regular rate and rhythm, S1, S2 without murmur, rub or gallop. ABDOMEN: Faint macular rash present across lower abdomen. Soft, nontender, nondistended, normoactive bowel sounds, no guarding. Suprapubic surgical site C/ D/I with no signs of infection. EXTREMITIES: 2+ pulses, warm, well-perfused, no edema. Laboratory Results - last 24 hr Laboratory Last Values WBC 11.0 K/mm3 (4.0-10.0) H 01/25/19 05:20 RBC 4.41 M/mm3 (3.60-5.2) 01/25/19 05:20 Hgb 12.7 GM/dL (10.7-15.3) 01/25/19 05:20 Hct 37.0 % (32.4-45.2) 01/25/19 05:20 MCV 83.9 fl (80-96) 01/25/19 05:20 MCH 28.8 pg (25.7-33.7) 01/25/19 05:20 MCHC 34.3 g/dl (32.0-36.0) 01/25/19 05:20 RDW 14.1 % (11.6-15.6) 01/25/19 05:20 Plt Count 537 K/MM3 (134-434) H 01/25/19 05:20 MPV 8.2 fl (7.5-11.1) 01/25/19 05:20 Absolute Neuts (auto) 7.9 K/mm3 (1.5-8.0) 01/25/19 05:20 Neutrophils % 71.3 % (42.8-82.8) 01/25/19 05:20 Neutrophils % (Manual) 71.0 % (42.8-82.8) 01/25/19 05:20 Band Neutrophils % 2.0 % 01/25/19 05:20 Lymphocytes % 20.6 % (8-40) 01/25/19 05:20 Lymphocytes % (Manual) 14.0 % (8-40) D 01/25/19 05:20 Monocytes % 6.6 % (3.8-10.2) 01/25/19 05:20 Monocytes % (Manual) 10 % (3.8-10.2) D 01/25/19 05:20 Eosinophils % 1.2 % (0-4.5) 01/25/19 05:20 Eosinophils % (Manual) 1.0 % (0-4.5) D 01/25/19 05:20 Basophils % 0.3 % (0-2.0) 01/25/19 05:20 Basophils % (Manual) 0.0 % (0-2.0) 01/25/19 05:20 Myelocytes % (Man) 1 % (0-2) D 01/25/19 05:20 Promyelocytes % (Man) 0 % (0-2) 01/25/19 05:20 Blast Cells % (Manual) 0 % (0-0) 01/25/19 05:20 Nucleated RBC % 0 % (0-0) 01/25/19 05:20 Metamyelocytes 0 % (0-2) D 01/25/19 05:20 Hypochromia 0 01/25/19 05:20 Toxic Granulation 0 01/25/19 05:20 [place]ohle Bodies 0 01/25/19 05:20 Platelet Estimate Increased 01/25/19 05:20 Platelet Comment Present 01/22/19 06:55 Polychromasia 0 01/25/19 05:20 Poikilocytosis 0 01/25/19 05:20 Basophilic Stippling 0 01/25/19 05:20 Anisocytosis 0 01/25/19 05:20 Microcytosis 0 01/25/19 05:20 Macrocytosis 0 01/25/19 05:20 Spherocytes 0 01/25/19 05:20 Sickle Cells 0 01/25/19 05:20 Target Cells 0 01/25/19 05:20 Tear Drop Cells 0 01/25/19 05:20 Ovalocytes 0 01/25/19 05:20 Stomatocytes 0 01/25/19 05:20 Helmet Cells 0 01/25/19 05:20 [place] Bodies 0 01/25/19 05:20 [place] Rings 0 01/25/19 05:20 [place] Cells 0 01/25/19 05:20 Acanthocytes (Spur) 0 01/25/19 05:20 Rouleaux 0 01/25/19 05:20 Fragmented RBCs 0 01/25/19 05:20 Schistocytes 0 01/25/19 05:20 ESR 74 mm/hr (0-30) H 01/18/19 06:15 PT with INR 13.20 SEC (9.7-13.0) H 01/20/19 06:20 INR 1.12 (0.83-1.09) H 01/20/19 06:20 PTT (Actin FS) 61.9 SECONDS (25.2-36.5) H 01/25/19 05:20 Sodium 138 mmol/L (136-145) 01/25/19 05:20 Potassium 4.2 mmol/L (3.5-5.1) 01/25/19 05:20 Chloride 104 mmol/L (98-107) 01/25/19 05:20 Carbon Dioxide 27 mmol/L (21-32) 01/25/19 05:20 Anion Gap 8 MMOL/L (8-16) 01/25/19 05:20 BUN 9.9 mg/dL (7-18) 01/25/19 05:20 Creatinine 0.6 mg/dL (0.55-1.3) 01/25/19 05:20 Est GFR (CKD-EPI)AfAm 123.18 01/25/19 05:20 Est GFR (CKD-EPI)NonAf 106.28 01/25/19 05:20 Random Glucose 94 mg/dL (74-106) 01/25/19 05:20 Lactic Acid 0.9 mmol/L (0.4-2.0) 01/17/19 23:26 Calcium 9.6 mg/dL (8.5-10.1) 01/25/19 05:20 Phosphorus 3.9 mg/dL (2.5-4.9) 01/22/19 06:55 Magnesium 2.6 mg/dL (1.8-2.4) H 01/22/19 06:55 Total Bilirubin 0.4 mg/dL (0.2-1) 01/25/19 05:20 AST 30 U/L (15-37) 01/25/19 05:20 ALT 93 U/L (13-61) H 01/25/19 05:20 Alkaline Phosphatase 236 U/L (45-117) H 01/25/19 05:20 Creatine Kinase 30 U/L (26-192) 01/25/19 00:00 Troponin I < 0.02 ng/ml (0.00-0.05) 01/25/19 00:00 C-Reactive Protein 9.5 MG/DL (0.00-0.3) H 01/18/19 06:15 B-Natriuretic Peptide 16.6 pg/ml (5-125) 01/18/19 06:15 Total Protein 8.3 g/dl (6.4-8.2) H 01/25/19 05:20 Albumin 3.5 g/dl (3.4-5.0) 01/25/19 05:20 Lipase 114 U/L (73-393) 01/17/19 23:26 TSH 7.24 uIU/ml (0.358-3.74) H 01/18/19 06:15 Free T4 1.04 ng/dl (0.76-1.46) 01/19/19 06:25 Stool Occult Blood Negative (NEGATIVE) 01/21/19 12:00 Acetaminophen 2.3 ug/mL (10-30) L 01/17/19 23:26 Hep A IgM Ab Confirm Negative (Negative) 01/19/19 06:15 Hep Bs Antigen Negative (Negative) 01/19/19 06:15 Hep B Core IgM Ab Negative (Negative) 01/19/19 06:15 Hepatitis C Ab (EIA) <0.1 s/co ratio (0.0-0.9) 01/19/19 06:15 Active Medications Current Medications Apixaban (Eliquis -) 10 mg PO BID KRISTI Stop: 02/01/19 10:00 Heparin Sodium (Porcine) (Heparin -) 1,000 unit IVPUSH PRN PRN PRN Reason: Heparin Stop: 01/25/19 20:00 Last Admin: 01/24/19 00:58 Dose: 1,000 unit Heparin Sodium (Porcine) (Heparin -) 5,000 unit IVPUSH PRN PRN PRN Reason: Heparin Stop: 01/25/19 20:00 Aztreonam 2 gm/ Dextrose 100 mls @ 100 mls/hr IVPB Q8H-IV KRISTI; Protocol Last Admin: 01/25/19 10:31 Dose: 100 mls/hr Heparin Sodium (Porcine) 25, (000 unit/ Sodium Chloride) 500 mls @ 20 mls/hr IV TITR KRISTI; Protocol Stop: 01/25/19 20:00 Last Admin: 01/25/19 10:30 Dose: 1,300 unit/hr, 26 mls/hr Lactobacillus Acidophilus (Bacid -) 1 tab PO DAILY KRISTI Last Admin: 01/25/19 10:31 Dose: 1 tab ASSESSMENT/PLAN: 48 y.o. F PMH abd aneurysm, fibroids, HLD, post op day +10 s/p ZENA w/ salpingectomy who presented w/ generalized fatigue, nausea & chills found to have PE within RLL on chest CTA and abdominal fluid collection on CT abdomen. #Left adnexa & midpelvis fluid collection -IR tapped today; gram stain negative; body fl culture, anaerobic cx, fungal & mycobacterial culture pending -Leukocytosis downtrending- WBC 11 -C/w Aztreonam 2g IV q8, pending abd fluid cultures; Clindamycin d/c'd -Currently afebrile; monitor for fevers -Medical Pathology Teacher following #RLL PE -Heparin drip to be d/c'd @8PM -Restarting Eliquis @10PM -Denies SOB #Transaminitis -Abd US: Fatty liver -LFTs downtrending -Hep panel neg #FEN -no standing fluids -trend bmp -diabetic diet #DVT ppx -Heparin Visit type - Emergency Visit Emergency Visit: No - New Patient This patient is new to me today: No - Critical Care Critical Care patient: No ATTENDING PHYSICIAN STATEMENT I saw and evaluated the patient. I reviewed the resident's note and discussed the case with the resident. I agree with the resident's findings and plan as documented. SUBJECTIVE: OBJECTIVE: ASSESSMENT AND PLAN:
[2019-01-25] MEDS ORDERED: ACETAMINOPHEN 325 MG TABLET (FP) PO ONE (15:41)
[2019-01-25] MEDS: APIXABAN 5 MG TABLET PO SCH (21:51)
[2019-01-26] MEDS ORDERED: PT OWN MED DRAWER 7, Y5N ONE ×3 (01:29→16:48)
[2019-01-26] MEDS: AZTREONAM 2 GM in DEXTROSE 5%-WATER 100 ML IVPB SCH ×3 (01:52→17:07)
[2019-01-26 07:13] LABS: BASO % 0.4 % (0-2.0); EOS % 1.9 % (0-4.5); HEMATOCRIT 33.9 % (32.4-45.2); HEMOGLOBIN 11.7 GM/dL (10.7-15.3); LYMPH % 21.2 % (8-40); MCH 28.9 pg (25.7-33.7); MCHC 34.5 g/dl (32.0-36.0); MEAN CELL VOLUME 83.6 fl (80-96); MONO % 8.8 % (3.8-10.2); NEUT % 67.7 % (42.8-82.8); PLATELET COUNT 519 K/MM3 (134-434); RBC 4.05 M/mm3 (3.60-5.2); RDW 14.1 % (11.6-15.6)
[2019-01-26 07:46] LABS: ALBUMIN 3.1 g/dl (3.4-5.0); BILIRUBIN,TOTAL 0.2 mg/dL (0.2-1); BLOOD UREA NITROGEN 13.8 mg/dL (7-18); CALCIUM 9.4 mg/dL (8.5-10.1); CREATININE 0.5 mg/dL (0.55-1.3); MAGNESIUM 2.2 mg/dL (1.8-2.4); PHOSPHOROUS 3.8 mg/dL (2.5-4.9); POTASSIUM 4.4 mmol/L (3.5-5.1); TOT PROT 7.3 g/dl (6.4-8.2)
[2019-01-26] MEDS: APIXABAN 5 MG TABLET PO SCH ×2 (09:00→21:22)
[2019-01-26] MEDS: LACTOBACILLUS ACIDOPHILUS 1 TABLET PO SCH (09:01)
--- NOTE | 2019-01-26 09:14 | PN ---
Progress Note, Physician History of Present Illness: doing well no issues - Current Medication List Current Medications: Active Medications Apixaban (Eliquis -) 10 mg PO BID KRISTI Stop: 02/01/19 10:00 Last Admin: 01/26/19 09:00 Dose: 10 mg Aztreonam 2 gm/ Dextrose 100 mls @ 100 mls/hr IVPB Q8H-IV KRISTI; Protocol Last Admin: 01/26/19 01:52 Dose: 100 mls/hr Lactobacillus Acidophilus (Bacid -) 1 tab PO DAILY KRISTI Last Admin: 01/26/19 09:01 Dose: 1 tab - Objective Vital Signs: Vital Signs Temperature 98.2 F 01/26/19 06:00 Pulse Rate 69 01/26/19 06:00 Respiratory Rate 18 01/26/19 06:00 Blood Pressure 112/68 01/26/19 06:00 O2 Sat by Pulse Oximetry (%) 98 01/25/19 21:00 Constitutional: Yes: No Distress, Calm Cardiovascular: Yes: Regular Rate and Rhythm Respiratory: Yes: Regular, CTA Bilaterally Gastrointestinal: Yes: Normal Bowel Sounds, Soft Musculoskeletal: Yes: WNL Extremities: Yes: WNL Neurological: Yes: Alert, Oriented Labs: CBC, BMP 01/26/19 06:30 INR, PTT INR 1.12 (0.83-1.09) H 01/20/19 06:20 Assessment/Plan Problem List - Problems (1) Postoperative fever Code(s): R50.82 - POSTPROCEDURAL FEVER (2) Endometrial polyp Code(s): N84.0 - POLYP OF CORPUS UTERI (3) Status post abdominal hysterectomy Code(s): Z90.710 - ACQUIRED ABSENCE OF BOTH CERVIX AND UTERUS Assessment/Plan Fever s/p ZENA Pelvic/adnexal fluid collection/Possible abscess PE Rash - resolved -- continue Aztreonam awaiting for results if all results are negative can stop abx
[2019-01-26 11:24] LABS: ANISOCYTOSIS 0; HELMET CELLS 0; HOWELL-JOLLY BODIES 0; MACROCYTOSIS 0; OVALOCYTE 0; PLATELET ESTIMATE INCREASED; ROULEAU 0; SICKELED CELLS 0; TARGET CELLS 0; TEAR DROP CELLS 0; TOXIC GRANULATION 0
[2019-01-26] MEDS ORDERED: ACETAMINOPHEN 325 MG TABLET (FP) PO ONE ×2 (14:21→21:12)
--- NOTE | 2019-01-26 17:08 | PN ---
Physical Exam: SUBJECTIVE: Patient seen and examined. Pt noticed small streak of blood when wiping yesterday; no complaints of bleeding with wiping today. Rectal exam benign. Afebrile. Hemodynamically stable. OBJECTIVE: Vital Signs Period Temp Pulse Resp BP Sys/Finch Pulse Ox Last 24 Hr 98.0 F-99 F 69-86 16-18 106-117/62-71 97-98 GENERAL: The patient is awake, alert, and fully oriented, in no acute distress. LUNGS: Breath sounds equal, clear to auscultation bilaterally, no wheezes, no crackles, no accessory muscle use. HEART: Regular rate and rhythm, S1, S2 without murmur, rub or gallop. ABDOMEN: Faint macular rash present across lower abdomen. Soft, nontender, nondistended, normoactive bowel sounds, no guarding. Suprapubic surgical site C/ D/I with no signs of infection. EXTREMITIES: 2+ pulses, warm, well-perfused, no edema. RECTAL: No ext hemorrhoids, no fissures noted. No ext bleeding. No gerard blood present on exam. Laboratory Results - last 24 hr Laboratory Last Values WBC 8.0 K/mm3 (4.0-10.0) 01/26/19 06:30 Corrected WBC (auto) Cancelled 01/26/19 06:30 RBC 4.05 M/mm3 (3.60-5.2) 01/26/19 06:30 Hgb 11.7 GM/dL (10.7-15.3) 01/26/19 06:30 Hct 33.9 % (32.4-45.2) 01/26/19 06:30 MCV 83.6 fl (80-96) 01/26/19 06:30 MCH 28.9 pg (25.7-33.7) 01/26/19 06:30 MCHC 34.5 g/dl (32.0-36.0) 01/26/19 06:30 RDW 14.1 % (11.6-15.6) 01/26/19 06:30 Plt Count 519 K/MM3 (134-434) H 01/26/19 06:30 MPV 8.0 fl (7.5-11.1) 01/26/19 06:30 Absolute Neuts (auto) 5.5 K/mm3 (1.5-8.0) 01/26/19 06:30 Neutrophils % 67.7 % (42.8-82.8) 01/26/19 06:30 Neutrophils % (Manual) 71.6 % (42.8-82.8) 01/26/19 06:30 Band Neutrophils % 0.0 % 01/26/19 06:30 Lymphocytes % 21.2 % (8-40) 01/26/19 06:30 Lymphocytes % (Manual) 16.7 % (8-40) 01/26/19 06:30 Monocytes % 8.8 % (3.8-10.2) 01/26/19 06:30 Monocytes % (Manual) 7 % (3.8-10.2) 01/26/19 06:30 Eosinophils % 1.9 % (0-4.5) 01/26/19 06:30 Eosinophils % (Manual) 2.9 % (0-4.5) D 01/26/19 06:30 Basophils % 0.4 % (0-2.0) 01/26/19 06:30 Basophils % (Manual) 1.0 % (0-2.0) D 01/26/19 06:30 Myelocytes % (Man) 1 % (0-2) 01/26/19 06:30 Promyelocytes % (Man) 0 % (0-2) 01/26/19 06:30 Blast Cells % (Manual) 0 % (0-0) 01/26/19 06:30 Nucleated RBC % 0 % (0-0) 01/26/19 06:30 Metamyelocytes 0 % (0-2) 01/26/19 06:30 Manual Slide Review Cancelled 01/26/19 06:30 Hypochromia 0 01/26/19 06:30 Toxic Granulation 0 01/26/19 06:30 Dohle Bodies 0 01/26/19 06:30 Platelet Estimate Increased 01/26/19 06:30 Platelet Comment Present 01/22/19 06:55 Polychromasia 0 01/26/19 06:30 Poikilocytosis 0 01/26/19 06:30 Basophilic Stippling 0 01/26/19 06:30 Anisocytosis 0 01/26/19 06:30 Microcytosis 0 01/26/19 06:30 Macrocytosis 0 01/26/19 06:30 Spherocytes 0 01/26/19 06:30 Sickle Cells 0 01/26/19 06:30 Target Cells 0 01/26/19 06:30 Tear Drop Cells 0 01/26/19 06:30 Ovalocytes 0 01/26/19 06:30 Stomatocytes 0 01/26/19 06:30 Helmet Cells 0 01/26/19 06:30 [place] Bodies 0 01/26/19 06:30 Atkinson Rings 0 01/26/19 06:30 Krissy Cells 0 01/26/19 06:30 Acanthocytes (Spur) 0 01/26/19 06:30 Rouleaux 0 01/26/19 06:30 Fragmented RBCs 0 01/26/19 06:30 Schistocytes 0 01/26/19 06:30 ESR 74 mm/hr (0-30) H 01/18/19 06:15 PT with INR 13.20 SEC (9.7-13.0) H 01/20/19 06:20 INR 1.12 (0.83-1.09) H 01/20/19 06:20 PTT (Actin FS) 51.7 SECONDS (25.2-36.5) H 01/26/19 13:45 Sodium 138 mmol/L (136-145) 01/26/19 06:30 Potassium 4.4 mmol/L (3.5-5.1) 01/26/19 06:30 Chloride 106 mmol/L (98-107) 01/26/19 06:30 Carbon Dioxide 26 mmol/L (21-32) 01/26/19 06:30 Anion Gap 6 MMOL/L (8-16) L 01/26/19 06:30 BUN 13.8 mg/dL (7-18) 01/26/19 06:30 Creatinine 0.5 mg/dL (0.55-1.3) L 01/26/19 06:30 Est GFR (CKD-EPI)AfAm 130.79 01/26/19 06:30 Est GFR (CKD-EPI)NonAf 112.85 01/26/19 06:30 Random Glucose 100 mg/dL (74-106) 01/26/19 06:30 Lactic Acid 0.9 mmol/L (0.4-2.0) 01/17/19 23:26 Calcium 9.4 mg/dL (8.5-10.1) 01/26/19 06:30 Phosphorus 3.8 mg/dL (2.5-4.9) 01/26/19 06:30 Magnesium 2.2 mg/dL (1.8-2.4) 01/26/19 06:30 Total Bilirubin 0.2 mg/dL (0.2-1) 01/26/19 06:30 AST 29 U/L (15-37) 01/26/19 06:30 ALT 77 U/L (13-61) H 01/26/19 06:30 Alkaline Phosphatase 193 U/L (45-117) H 01/26/19 06:30 Creatine Kinase 30 U/L (26-192) 01/25/19 00:00 Troponin I < 0.02 ng/ml (0.00-0.05) 01/25/19 00:00 C-Reactive Protein 9.5 MG/DL (0.00-0.3) H 01/18/19 06:15 B-Natriuretic Peptide 16.6 pg/ml (5-125) 01/18/19 06:15 Total Protein 7.3 g/dl (6.4-8.2) 01/26/19 06:30 Albumin 3.1 g/dl (3.4-5.0) L 01/26/19 06:30 Lipase 114 U/L (73-393) 01/17/19 23:26 TSH 7.24 uIU/ml (0.358-3.74) H 01/18/19 06:15 Free T4 1.04 ng/dl (0.76-1.46) 01/19/19 06:25 Stool Occult Blood Negative (NEGATIVE) 01/26/19 14:30 Acetaminophen 2.3 ug/mL (10-30) L 01/17/19 23:26 Hep A IgM Ab Confirm Negative (Negative) 01/19/19 06:15 Hep Bs Antigen Negative (Negative) 01/19/19 06:15 Hep B Core IgM Ab Negative (Negative) 01/19/19 06:15 Hepatitis C Ab (EIA) <0.1 s/co ratio (0.0-0.9) 01/19/19 06:15 Active Medications Current Medications Apixaban (Eliquis -) 10 mg PO BID KRISTI Stop: 02/01/19 10:00 Last Admin: 01/26/19 09:00 Dose: 10 mg Aztreonam 2 gm/ Dextrose 100 mls @ 100 mls/hr IVPB Q8H-IV KRISTI; Protocol Last Admin: 01/26/19 09:25 Dose: 100 mls/hr Lactobacillus Acidophilus (Bacid -) 1 tab PO DAILY KRISTI Last Admin: 01/26/19 09:01 Dose: 1 tab ASSESSMENT/PLAN: 48 y.o. F PMH abd aneurysm, fibroids, HLD, post op day +10 s/p ZENA w/ salpingectomy who presented w/ generalized fatigue, nausea & chills found to have PE within RLL on chest CTA and abdominal fluid collection on CT abdomen. #Left adnexa & midpelvis fluid collection -Abd fluid collection tapped, pending culture results -Leukocytosis resolved -C/w Aztreonam 2g IV q8, complete course 01/27/19 -Currently afebrile; monitor for fevers -[employer] following #RLL PE -Eliquis -Denies SOB #Transaminitis -Abd US: Fatty liver -LFTs downtrending -Hep panel neg #FEN -no standing fluids -trend bmp -diabetic diet #DVT ppx -Eliquis Visit type - Emergency Visit Emergency Visit: No - New Patient This patient is new to me today: No - Critical Care Critical Care patient: No ATTENDING PHYSICIAN STATEMENT I saw and evaluated the patient. I reviewed the resident's note and discussed the case with the resident. I agree with the resident's findings and plan as documented. SUBJECTIVE: OBJECTIVE: ASSESSMENT AND PLAN:
--- NOTE | 2019-01-26 18:30 | PN ---
Teaching Attending Note Name of Resident: Keyanna Hunter ATTENDING PHYSICIAN STATEMENT I saw and evaluated the patient. I reviewed the resident's note and discussed the case with the resident. I agree with the resident's findings and plan as documented. SUBJECTIVE:had some blood on toilet paper after BM yesterday. no repeat epsidoes. denies Cp, SOB, fever, chills, N/V/C/D OBJECTIVE: Last Vital Signs Temp Pulse Resp BP Pulse Ox 98.1 F 90 18 124/90 97 01/26/19 18:26 01/26/19 18:26 01/26/19 18:26 01/26/19 18:26 01/26/19 09:00 General NAD ASSESSMENT AND PLAN: 48 yo F with PMH dyslipidemia, AAA, Fibroid Uterus, POD 12 s/p ZENA presented with fevers, chills, malaise, found to have intra-abdominal fluid collection and RLL PE. 1. Acute RLL PE- with recent surgery. on eliquis. some minimal blood on toilet paper. resident to come and do rectal exam to evaluate.would cont elquis at this time 2. Intra abdominal/pelvic collections- concern for abscess.s/p drainage by IR on 01/24. tolerated procedure well. fluid did not appear infected. cx sent to micro. off clinda. on aztreonam day 10. f/u cx to determine if abx need to be continued. 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 Drug rash- allergic reaction likely due to cefepime. now cleared. 4. Diarrhea- likely abx assoc diarrhea. resolved. on bacid 5. Transaminitis- unclear etiology. ultrasound reviewed. hepatitis panel negative. trending down 6. DVT ppx- Hep ggt will switch to eliquis 7. awaiting for micro report on fluid culture. as per micro should be back in next 24H. as per now no growth. anticipate discharge tomorrow
[2019-01-27] MEDS ORDERED: PT OWN MED DRAWER 7, Y5N ONE ×2 (01:19→10:28)
[2019-01-27] MEDS: AZTREONAM 2 GM in DEXTROSE 5%-WATER 100 ML IVPB SCH ×2 (01:26→11:04)
[2019-01-27 09:33] LABS: BASO % 0.5 % (0-2.0); EOS % 1.4 % (0-4.5); HEMATOCRIT 37.3 % (32.4-45.2); HEMOGLOBIN 12.6 GM/dL (10.7-15.3); LYMPH % 18.9 % (8-40); MCH 28.3 pg (25.7-33.7); MCHC 33.9 g/dl (32.0-36.0); MEAN CELL VOLUME 83.3 fl (80-96); MEAN PLT VOLUME 8.2 fl (7.5-11.1); MONO % 8.4 % (3.8-10.2); NEUT % 70.8 % (42.8-82.8); PLATELET COUNT 616 K/MM3 (134-434); RBC 4.48 M/mm3 (3.60-5.2); RDW 14.3 % (11.6-15.6); WHITE BLOOD COUNT 7.3 K/mm3 (4.0-10.0)
[2019-01-27 09:57] LABS: ALBUMIN 3.4 g/dl (3.4-5.0); BILIRUBIN,TOTAL 0.3 mg/dL (0.2-1); BLOOD UREA NITROGEN 14.9 mg/dL (7-18); CALCIUM 9.8 mg/dL (8.5-10.1); CREATININE 0.6 mg/dL (0.55-1.3); MAGNESIUM 2.2 mg/dL (1.8-2.4); PHOSPHOROUS 4.1 mg/dL (2.5-4.9); POTASSIUM 4.5 mmol/L (3.5-5.1); TOT PROT 8.3 g/dl (6.4-8.2)
--- NOTE | 2019-01-27 10:04 | PN ---
Progress Note, Physician History of Present Illness: stable no new issues - Current Medication List Current Medications: Active Medications Apixaban (Eliquis -) 10 mg PO BID KRISTI Stop: 02/01/19 10:00 Last Admin: 01/26/19 21:22 Dose: 10 mg Aztreonam 2 gm/ Dextrose 100 mls @ 100 mls/hr IVPB Q8H-IV KRISTI; Protocol Last Admin: 01/27/19 01:26 Dose: 100 mls/hr Lactobacillus Acidophilus (Bacid -) 1 tab PO DAILY KRISTI Last Admin: 01/26/19 09:01 Dose: 1 tab - Objective Vital Signs: Vital Signs Temperature 98.2 F 01/27/19 06:00 Pulse Rate 76 01/27/19 06:00 Respiratory Rate 18 01/27/19 06:00 Blood Pressure 113/64 01/27/19 06:00 O2 Sat by Pulse Oximetry (%) 97 01/26/19 21:00 Constitutional: Yes: No Distress, Calm Cardiovascular: Yes: Regular Rate and Rhythm Respiratory: Yes: Regular, CTA Bilaterally Gastrointestinal: Yes: Normal Bowel Sounds, Soft Musculoskeletal: Yes: WNL Extremities: Yes: WNL Neurological: Yes: Alert, Oriented Psychiatric: Yes: Alert, Oriented Labs: CBC, BMP 01/27/19 09:07 01/27/19 09:07 INR, PTT INR 1.12 (0.83-1.09) H 01/20/19 06:20 Assessment/Plan Problem List - Problems (1) Postoperative fever Code(s): R50.82 - POSTPROCEDURAL FEVER (2) Endometrial polyp Code(s): N84.0 - POLYP OF CORPUS UTERI (3) Status post abdominal hysterectomy Code(s): Z90.710 - ACQUIRED ABSENCE OF BOTH CERVIX AND UTERUS Assessment/Plan Fever s/p ZENA Pelvic/adnexal fluid collection/Possible abscess PE Rash - resolved awaiting for final results rest as per the team
[2019-01-27 10:42] VITALS: TEMP 98.5
[2019-01-27] MEDS: APIXABAN 5 MG TABLET PO SCH (11:01)
[2019-01-27] MEDS: LACTOBACILLUS ACIDOPHILUS 1 TABLET PO SCH (11:01)
--- NOTE | 2019-01-27 12:41 | PN ---
Teaching Attending Note Name of Resident: Keyanna Hunter ATTENDING PHYSICIAN STATEMENT I saw and evaluated the patient. I reviewed the resident's note and discussed the case with the resident. I agree with the resident's findings and plan as documented. SUBJECTIVE: asymptomatic. denies CP, SOB, fever, chills, N/V/C/D OBJECTIVE: Last Vital Signs Temp Pulse Resp BP Pulse Ox 98.5 F 77 18 103/69 97 01/27/19 10:00 01/27/19 10:00 01/27/19 10:00 01/27/19 10:00 01/27/19 09:00 General NAD ASSESSMENT AND PLAN: 48 yo F with PMH dyslipidemia, AAA, Fibroid Uterus, POD 12 s/p ZENA presented with fevers, chills, malaise, found to have intra-abdominal fluid collection and RLL PE. 1. Acute RLL PE- with recent surgery. on eliquis. no more episodes of bleeding. will need to continue 10mg BID for 7 days then 5mg thereafter. will need to f/ ti PMD for coaguability workup. 2. Intra abdominal/pelvic collections- concern for abscess.s/p drainage by IR on 01/24. tolerated procedure well. fluid did not appear infected. cx now reported as negative. can d/c abx. will need outpatient [employer]ER follow up. 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 Drug rash- allergic reaction likely due to cefepime. now cleared. 4. Diarrhea- likely abx assoc diarrhea. resolved. on bacid 5. Transaminitis- unclear etiology. ultrasound reviewed. hepatitis panel negative. trending down 6. DVT ppx- Hep ggt will switch to eliquis 7. d/c home off abx
[2019-01-27 12:54] LABS: HEMATOCRIT 38.2 % (32.4-45.2); MCH 28.5 pg (25.7-33.7); MCHC 33.9 g/dl (32.0-36.0); MEAN PLT VOLUME 8.3 fl (7.5-11.1); PLATELET COUNT 633 K/MM3 (134-434); RBC 4.55 M/mm3 (3.60-5.2); RDW 14.3 % (11.6-15.6); WHITE BLOOD COUNT 8.8 K/mm3 (4.0-10.0)
[2019-01-27 14:53] VITALS: BP 101/47; PULSE 79
--- NOTE | 2019-01-27 17:19 | DS ---
Physical Exam: SUBJECTIVE: Patient seen and examined. No complaints at this time, in no distress. Denies any pain, OBJECTIVE: Vital Signs Period Temp Pulse Resp BP Sys/Finch Pulse Ox Last 24 Hr 98.1 F-98.5 F 76-90 18-18 100-124/47-90 97-97 PHYSICAL EXAM GENERAL: The patient is awake, alert, and fully oriented, in no acute distress. LUNGS: Breath sounds equal, clear to auscultation bilaterally, no wheezes, no crackles, no accessory muscle use. HEART: Regular rate and rhythm, S1, S2 without murmur, rub or gallop. ABDOMEN: Extremely faint macular rash present across lower abdomen. Soft, mild tenderness to palpation of LLQ, nondistended, normoactive bowel sounds, no guarding. Suprapubic surgical site C/D/I with no signs of infection. EXTREMITIES: 2+ pulses, warm, well-perfused, no edema. RECTAL: No ext hemorrhoids, no fissures noted. No ext bleeding. No gerard blood present on exam. Laboratory Results - last 24 hr HOSPITAL COURSE: 48 y.o. F PMH abd aneurysm, fibroids, HLD, post op s/p ZENA w/ salpingectomy on who presented w/ generalized fatigue, nausea & chills found to have PE within RLL on chest CTA and abdominal fluid collection on CT abdomen. Pt started on Eliquis, currently denies SOB. Abd fluid tapped by IR, neg for organism growth. S/p aztreonam course, completed today; leukocytosis has resolved. Patient is afebrile, denies SOB. Educated regarding avoiding NSAID use while on Eliquis. Will f/u with PCP in 1 week. Date of Admission:01/18/19 CXR 01/17: neg CT abd/ pel 01/18: Hepatomegaly, diffuse fatty infiltration of liver. Fluid in L adnexa & midpelvis Chest/ thorax CTA: RLL PE CT abd/ pel 01/22: complex collection measuring 5.3x3.8x3.7cm EKG: NSR Echo: mild MR, normal EF, trace TR LE Duplex: No DVTs Date of Discharge: 01/27/19 Minutes to complete discharge: 36 Discharge Summary Reason For Visit: POSTOPERATIVE FEVER,PULMONARY EMBOLISM Condition: Stable - Instructions Diet, Activity, Other Instructions: Your visit: You presented to the hospital for fatigue. You were found to have a blockage in your right lung. You were treated with medications. While you were here, you were found to have some fluid in your abdomen. We took a sample of this fluid to rule out an infection. You were also found to have a fatty liver, elevated liver function testing and elevated platelets. Please follow up with your PCP. You will need to have repeat liver function testing and a CBC. Medication Changes: 1. Please continue to take Eliquis 10mg twice per day for 5 more days (until ). You will then take 5mg twice per day. You can follow up with your PCP regarding further management with this medication. 2. Please take Bacid 1 pill every day. Take this for a month. This will prevent diarrhea since you were on a long course of antibiotics. Follow up with the following physicians: 1. Primary care provider in 1 week at the [place] [id number] [facility] if you do not have a primary care provider. 2. ObGyn (Dr. Christian) in 1 week Further intructions: You are being discharged to your home. DO NOT take any NSAID medications ( aspirin, ibuprofen, naproxen, etc.) as this may cause excessive bleeding while on Eliquis. Please continue to eat a healthy diet. Please return to the ER if you have any signs or symptoms of chest pain, shortness of breath, palpitations, confusion, dizziness, abdominal pain, fevers , fatigue, vomiting, diarrhea, muscle pains or weakness. Please return to the ER if symptoms persist, worsen, or new symptoms arise. Referrals: Phil Umaña MD [Staff Physician] - Carlotta Christian MD [Staff Physician] - Disposition: HOME - Home Medications Comprehensive Discharge Medication List: Ambulatory Orders Cyclobenzaprine HCl [Flexeril 10 mg] 10 mg PO PRN PRN 12/09/18 Oxycodone HCl/Acetaminophen [Percocet 5-325 mg Tablet] 1 tab PO Q4H #20 tablet MDD 20 01/13/19 Apixaban [Eliquis] 10 mg PO BID #62 tablet 01/27/19 Lactobacillus Acidophilus [Bacid -] 1 each PO DAILY #30 capsule 01/27/19 This patient is new to me today: No Emergency Visit: No Critical Care patient: No - Discharge Referral Referred to [facility] No ATTENDING PHYSICIAN STATEMENT I saw and evaluated the patient. I reviewed the resident's note and discussed the case with the resident. I agree with the resident's findings and plan as documented. SUBJECTIVE: OBJECTIVE: ASSESSMENT AND PLAN:
== END 2019-01-27 16:36 | disposition home or self-care (01) | DRG 862 ==
LOC: JER 21:49 → JERBED 01-18 02:05 → J4S 01-19 00:29
PROVIDERS: ADMIT Internal Medicine; ATTEND Internal Medicine
PROC: 0W9J3ZZ Drainage of Pelvic Cavity, Percutaneous Approach (ICD-10-PCS; principal; 2019-01-24)
DX: T81.49XA Infection following a procedure, other surgical site, initial encounter (principal); K65.1 Peritoneal abscess; I26.99 Other pulmonary embolism without acute cor pulmonale; T81.72XA Complication of vein following a procedure, not elsewhere classified, initial encounter; K52.1 Toxic gastroenteritis and colitis; E78.5 Hyperlipidemia, unspecified; R73.03 Prediabetes; K76.0 Fatty (change of) liver, not elsewhere classified; D72.829 Elevated white blood cell count, unspecified; R74.0 Nonspecific elevation of levels of transaminase and lactic acid dehydrogenase [LDH]; Y83.8 Other surgical procedures as the cause of abnormal reaction of the patient, or of later complication, without mention of misadventure at the time of the procedure; E66.9 Obesity, unspecified; Z68.32 Body mass index [BMI] 32.0-32.9, adult; L27.0 Generalized skin eruption due to drugs and medicaments taken internally; T36.1X5A Adverse effect of cephalosporins and other beta-lactam antibiotics, initial encounter; Y92.230 Patient room in hospital as the place of occurrence of the external cause
CPT/HCPCS: 36415; 49407; 71045-TC-FY; 71275-TC; 74177-TC; 76705-TC; 80053; 80074; 80307; 82272; 82550; 83605; 83690; 83735; 83880; 84100; 84436; 84439; 84443; 84484; 85025; 85027; 85610; 85651; 85730; 86140; 87040; 87070; 87075; 87102; 87116; 87205; 87206; 87210; 93005; 93010; 93306-TC; 93970-TC; 93975; 99285-25; J0131; J1644; J7030; Q9967

== ENCOUNTER 2019-05-11 09:18 | Emergency (ER) | payer OTHER ==
[2019-05-11 09:31] VITALS: TEMP 98.4; BMI 31.8
--- NOTE | 2019-05-11 09:48 | PDOC ---
History of Present Illness - General Chief Complaint: Shortness of Breath Stated Complaint: SOB Time Seen by Provider: 05/11/19 09:46 - History of Present Illness Initial Comments: 05/11/19 09:47 48 yo F PMH abd aneurysm, fibroids, HLD, post op s/p ZENA w/ salpingectomy on 01/10, c/b PE on Eliquis, p/w SOB. Reports SOB worsening over past 3 days, has not been taking Eliquis for the past month due to insurance issues. Reports taking ibuprofen and aspirin sporadically with some improvement in symptoms, however, last night she developed R sided chest pain with radiation down her R arm, this morning nausea w/o vomiting. States that it feels the same as when she had the PE. Denies [place], N/V, constipation/diarrhea, recent travel, sick contacts. Past History - Past Medical History Allergies/Adverse Reactions: Allergies Allergy/AdvReac Type Severity Reaction Status Date / Time cefepime Allergy Rash Verified 05/11/19 09:32 oxycodone [From Percocet] Allergy Verified 05/11/19 09:32 Home Medications: Ambulatory Orders Cyclobenzaprine HCl [Flexeril 10 mg] 10 mg PO PRN PRN 12/09/18 Oxycodone HCl/Acetaminophen [Percocet 5-325 mg Tablet] 1 tab PO Q4H #20 tablet MDD 20 01/13/19 Lactobacillus Acidophilus [Bacid -] 1 each PO DAILY #30 capsule 01/27/19 Apixaban [Eliquis] 10 mg PO BID #62 tablet 05/11/19 Anemia: No Asthma: No Cancer: No Cardiac Disorders: Yes (ABDOMINAL ANEURYSM.) CVA: No COPD: No CHF: No Dementia: No Diabetes: No (HX OF PRE-DIABETES) GI Disorders: No Disorders: No HTN: No Hypercholesterolemia: Yes Liver Disease: No Seizures: No Thyroid Disease: No Other medical history: PE - Surgical History Abdominal Surgery: No Appendectomy: Yes ( A CHILD) Cardiac Surgery: No Cholecystectomy: No Lung Surgery: No Neurologic Surgery: No Orthopedic Surgery: No - Immunization History Immunization Up to Date: Yes - Psycho Social/Smoking Cessation Hx Smoking Status: No Smoking History: Never smoked Have you smoked in the past 12 months: No Hx Alcohol Use: No Drug/Substance Use Hx: No Substance Use Type: None Hx Substance Use Treatment: No Review of Systems - Review of Systems Constitutional: No: Chills, Diaphoresis, Fever HEENTM: No: Recent change in vision, Double Vision, Hearing Loss, Mouth Pain, Difficulty Swallowing Respiratory: Yes: Shortness of Breath. No: Cough, Orthopnea Cardiac (ROS): No: Chest Pain, Edema, Irregular Heart Rate, Lightheadedness, Palpitations, Syncope, Chest Tightness ABD/GI: No: Constipated, Diarrhea, Nausea, Vomiting : No: Burning, Dysuria, Discharge, Frequency, Flank Pain Musculoskeletal: No: Back Pain, Muscle Pain Integumentary: No: Bruising, Dryness Neurological: No: Headache, Numbness, Tingling, Weakness *Physical Exam - Vital Signs Last Vital Signs Temp Pulse Resp BP Pulse Ox 98.4 F 72 16 146/81 99 05/11/19 09:28 05/11/19 09:28 05/11/19 09:28 05/11/19 09:28 05/11/19 09:28 - Physical Exam Comments: 05/11/19 14:25 Gen: well-developed, well-nourished, appears anxious Neuro: AAOX4, CN II-XII intact, FTN intact, EOMI, PERRLA, 5/5 strength, SILT HEENT: atraumatic, normocephalic, dry mucous membranes Neck: trachea midline, supple CV: regular rate, regular rhythm, no murmurs, rubs, or gallops Pulm: CTA b/l, no wheezing Abd: soft, non-distended, non-tender MSK: full ROM, intact pulses Extr: no edema, no deformities Skin: warm, dry Heart Score/ECG Review - History History: Slightly suspicious - Electrocardiogram EKG: Normal - Age Age: 45-65 - Risk Factors Risk Factors Heart Score: Yes Hx Hypercholesterolemia, Yes Hx Obesity Based on the list above the patient has:: 1-2 risk factors - Troponin Troponin: </= normal limit - Score Heart Score - Total: 2 ED Treatment Course - LABORATORY CBC & Chemistry Diagram: 05/11/19 10:10 05/11/19 10:10 Medical Decision Making - Medical Decision Making 05/11/19 10:16 Concern for ACS v PE. - CBC, CMP - EKG, trop - CXR - CTA pending Cr - reassess 05/11/19 10:31 EKG normal sinus at 61 bpm. 05/11/19 10:52 Cr 0.7, will get CTA. 05/11/19 12:22 CTA without acute changes, no clots. Discharge - Discharge Information Problems reviewed: Yes Clinical Impression/Diagnosis: SOB (shortness of breath) Condition: Improved Disposition: HOME - Additional Discharge Information Prescriptions: Apixaban [Eliquis] 10 mg PO BID #62 tablet - Follow up/Referral Referrals: Adrianna Beavers MD [Primary Care Provider] - - Patient Discharge Instructions Patient Printed Discharge Instructions: DI for Shortness of Breath Additional Instructions: You were seen with shortness of breath. Your labs, EKG, and CT scan all did not show any acute issues. However, your CT scan once again showed some fatty liver changes and a granuloma in your lung. This should be followed outpatient. See your primary care doctor within one week. Take your Eliquis as prescribed. This is very important to prevent clot formation, and another clot in your lungs could be fatal. Return to the ED if you develop worsening symptoms. - Post Discharge Activity
[2019-05-11 10:18] LABS: BASO % 0.3 % (0-2.0); EOS % 0.9 % (0-4.5); HEMATOCRIT 41.1 % (32.4-45.2); HEMOGLOBIN 14.2 GM/dL (10.7-15.3); LYMPH % 31.3 % (8-40); MCH 28.7 pg (25.7-33.7); MCHC 34.6 g/dl (32.0-36.0); MEAN PLT VOLUME 8.2 fl (7.5-11.1); MONO % 8.4 % (3.8-10.2); NEUT % 59.1 % (42.8-82.8); PLATELET COUNT 327 K/MM3 (134-434); RBC 4.96 M/mm3 (3.60-5.2); RDW 14.6 % (11.6-15.6); WHITE BLOOD COUNT 6.4 K/mm3 (4.0-10.0)
--- NOTE | 2019-05-11 10:18 | PDOC ---
Attending Attestation - Resident Resident Name: Cosme Jenkins - ED Attending Attestation I have performed the following: I have examined & evaluated the patient, The case was reviewed & discussed with the resident, I agree w/resident's findings & plan, Exceptions are as noted - HPI HPI: 05/11/19 10:15 Ms. Mendoza is a 48 yo F PMH hyperlipidemia, abd aneurysm, fibroids status post ZENA w/ salpingectomy on 01/10/19, c/b PE on Eliquis Patient presents emergency department with a complaint of progressively worsening shortness of breath and chest pain over the past 3 days. As it turns out, secondary to insurance issues, patient has not taken her Eliquis. She has substituted this for aspirin or Motrin and a natural supplement She has been feeling well overall however over the last 3 days she is noticed pleuritic chest pain in the center of the chest The reason she came in today was because her chest pain is severe, she feels exactly like she felt when she was first diagnosed with pulmonary embolism, and she now also notes dizziness. She notes shortness of breath and dizziness with minimal exertion (10 steps) No recent travel No fevers or chills Patient intermittently also notes a cough 05/11/19 10:45 - Physicial Exam PE: 05/11/19 10:16 GENERAL: The patient is in no acute distress. ENT: Ears normal, nares patent, oropharynx clear without exudates. Moist mucous membranes. NECK: Normal range of motion, supple LUNGS: Breath sounds equal, clear to auscultation bilaterally. No wheezes, and no crackles. HEART:Regular rate and rhythm, normal S1 and S2 without murmur, rub or gallop. No tachycardia ABDOMEN: Soft, nontender, normoactive bowel sounds. EXTREMITIES: Normal range of motion, no unilateral edema. NEUROLOGICAL: Cranial nerves II through XII grossly intact. Normal speech. No focal neurological deficits. SKIN: Warm, Dry, normal turgor, no rashes or lesions noted. 05/11/19 10:48 - Medical Decision Making 05/11/19 10:16 Differential includes cardiac ischemia, pe, asthma exacerbation, pneumonia, pneumothorax, pleural effusion, costochondritis, pericarditis, GERD. Given patient's recent history, and noncompliance with medication, will have to be ruled out for PE. Patient is high risk enough to not warrant a d-dimer but rather radiographic imaging of her chest EKG: Twelve-lead EKG was performed and reviewed by me. There is normal sinus rhythm with a normal rate of 61 bpm. The axis is normal. The intervals are normal. There are no ST or T wave abnormalities. Impression: Normal twelve-lead EKG 05/11/19 11:01 Laboratory Tests 05/11/19 05/11/19 05/11/19 10:10 10:10 10:10 WBC 6.4 Hgb 14.2 Hct 41.1 Plt Count 327 D INR 0.95 BUN Creatinine Creatine Kinase 111 Troponin I < 0.02 B-Natriuretic Peptide 19.9 05/11/19 10:10 WBC Hgb Hct Plt Count INR BUN 15.3 Creatinine 0.7 Creatine Kinase Troponin I B-Natriuretic Peptide Will send to CTA 05/11/19 13:40 CTA: No PE, no aortic dissection Repeat troponing is negative Pt states she feels better Will discharge to home Pt given card for help with her Eliquis prescription Pt ordered for Eliquis case reviewed with WALL MAN at Dr cole's office Pt to follow up in the office before the end of the week I discussed the physical exam findings, ancillary test results and final diagnoses with the patient. I answered all of the patient's questions. The patient was satisfied with the care received and felt comfortable with the discharge plan and treatment plan. The patient will call their primary care physician within 24 hours to arrange follow-up and will return to the Emergency Department with any new, persistant or worsening symptoms. The patient understands that we could not exclude the possibility of an ectopic based on her emergency department workup. She understands that it is extremely important that she sees her physician within 24-48 hours for a repeat visit, including repeat blood work. Heart Score/ECG Review - History History: Moderately suspicious - Electrocardiogram EKG: Normal - Age Age: 45-65 - Risk Factors Based on the list above the patient has:: No risk factors known - Troponin Troponin: </= normal limit - Score Heart Score - Total: 2
[2019-05-11 10:30] LABS: INR 0.95 (0.83-1.09); PROTHROMBIN TIME (PATIENT) 11.2 SEC (9.7-13.0)
[2019-05-11 10:33] LABS: ACTIVATED PTT 32.4 SECONDS (25.2-36.5)
[2019-05-11 10:49] LABS: ALBUMIN 3.9 g/dl (3.4-5.0); BILIRUBIN,TOTAL 0.4 mg/dL (0.2-1); BLOOD UREA NITROGEN 15.3 mg/dL (7-18); CALCIUM 9.6 mg/dL (8.5-10.1); CREATININE 0.7 mg/dL (0.55-1.3); TOT PROT 7.5 g/dl (6.4-8.2)
[2019-05-11 10:50] LABS: MAGNESIUM 2.1 mg/dL (1.8-2.4); N-TERMINAL BNP 19.9 pg/ml (5-125)
[2019-05-11 14:15] VITALS: BP 135/72; PULSE 70
--- NOTE | 2019-05-12 14:05 | EKG ---
Test Reason : Blood Pressure : / mmHG Vent. Rate : 061 BPM Atrial Rate : 061 BPM P-R Int : 152 ms QRS Dur : 074 ms QT Int : 394 ms P-R-T Axes : 061 045 043 degrees QTc Int : 396 ms NORMAL SINUS RHYTHM NORMAL ECG WHEN COMPARED WITH ECG OF 24-JAN-2019 22:13, NO SIGNIFICANT CHANGE WAS FOUND Confirmed by ANITA DIAZ MD ([id number]) on 05/12/2019 2:04:33 PM Referred By: Confirmed By:ANITA DIAZ MD
== END 2019-05-11 14:15 | disposition home or self-care (01) ==
LOC: JER 09:18
DX: R06.02 Shortness of breath (principal); Z86.711 Personal history of pulmonary embolism; Z79.01 Long term (current) use of anticoagulants; Z91.14 Patient's other noncompliance with medication regimen; E78.5 Hyperlipidemia, unspecified; Z90.710 Acquired absence of both cervix and uterus; Z90.79 Acquired absence of other genital organ(s); Z86.79 Personal history of other diseases of the circulatory system; Z88.5 Allergy status to narcotic agent; Z88.8 Allergy status to other drugs, medicaments and biological substances
CPT/HCPCS: 36415; 71045-TC-FY; 71275-TC; 80053; 82550; 83735; 83880; 84484; 85025; 85610; 85730; 93005; 93010; 99284-25

== ENCOUNTER 2021-04-11 09:51 | Emergency (ER) | payer OTHER ==
[2021-04-11 09:59] VITALS: BP 136/86; PULSE 75; TEMP 98.1; BMI 31.8
== END 2021-04-11 11:56 | disposition home or self-care (01) ==
LOC: JERFT 09:51
DX: M79.601 Pain in right arm (principal); R20.2 Paresthesia of skin
CPT/HCPCS: 99283-25

== ENCOUNTER 2021-11-08 21:48 | Emergency (ER) | payer OTHER ==
[2021-11-08 22:10] VITALS: BP 164/89; PULSE 90; TEMP 98.3; BMI 33.0
[2021-11-08 22:47] LABS: BASO % 0.3 % (0-2.0); EOS % 1.5 % (0-4.5); HEMATOCRIT 39.7 % (32.4-45.2); HEMOGLOBIN 13.5 GM/dL (10.7-15.3); LYMPH % 36.5 % (8-40); MCH 28.8 pg (25.7-33.7); MCHC 34.1 g/dl (32.0-36.0); MEAN CELL VOLUME 84.5 fl (80-96); MEAN PLT VOLUME 8.5 fl (7.5-11.1); MONO % 10.9 % (3.8-10.2); NEUT % 50.8 % (42.8-82.8); PLATELET COUNT 224 10^3/uL (134-434); RBC 4.69 M/mm3 (3.60-5.2); WHITE BLOOD COUNT 3.5 K/mm3 (4.0-10.0)
[2021-11-08 23:01] LABS: INR 1.01 (0.83-1.09); PROTHROMBIN TIME (PATIENT) 11.6 SEC (9.7-13.0)
[2021-11-08 23:04] LABS: ACTIVATED PTT 29.9 SECONDS (25.2-36.5)
[2021-11-08 23:32] LABS: CREATININE 0.8 mg/dL (0.55-1.3)
[2021-11-08 23:33] LABS: TOT PROT 7.2 g/dl (6.4-8.2)
[2021-11-09 00:47] LABS: ALBUMIN 3.7 g/dl (3.4-5.0); BILIRUBIN,TOTAL 0.3 mg/dL (0.2-1); BLOOD UREA NITROGEN 13.2 mg/dL (7-18); CALCIUM 9.1 mg/dL (8.5-10.1)
== END 2021-11-09 01:56 | disposition home or self-care (01) ==
LOC: JER 21:48
DX: U07.1 COVID-19 (principal)
CPT/HCPCS: 36415; 71046-TC-FY; 71275-TC; 80053; 84484; 85025; 85610; 85730; 87804; 93005; 93010; 93971-TC; 99285-25; C9803-CS; Q9967; U0003; U0005